=== PATIENT | female | born 1955 | race Caucasian/White ===

== ENCOUNTER 2025-04-22 13:44 | Inpatient (IN) | payer MEDICARE, MEDICAID, SELFPAY ==
--- OUTSIDE RECORDS SUMMARY | 2017-06-03 11:50 | XMS_ITS | Encounter Summary ---
Author Organization [place] [address] Care Team Providers Care Magazine Grinder Loader Name Role Phone Jewel Armas MD Unavailable [phone] Ivan Lucia MD Unavailable [phone] Eliezer Gan MD Unavailable [phone] Júnior Lawrence DO Primary Care Provider [phone] Encounter Details Date Type Department Care Team (Latest Contact Info) Description 06/03/2017 11:50 AM EDT Hospital Encounter [facility] [address] [place] [address] Left without seen Social History Tobacco Use Types Packs/Day Years Used Date Smoking Tobacco: Never Smokeless Tobacco: Never Alcohol Use Standard Drinks/Week Comments No 0 (1 standard drink = 0.6 oz pur e alcohol) B1300 Health Literacy Answer Date Recor ded How often do you need to hav e someone help you when you read instructions, pamphlets, or other written material from your doctor or pharmacy? Sometimes 04/25/2024 [facility] Utilities Answer Date Recorded In the past 12 months has th e electric, gas, oil, or water company threatened to shut off services in your home? Patient unable to answer 02/03/2025 Overall Financial Resource Strain (CARDIA) Answe r Date Recorded How hard is it for you to pa y for the very basics like food, housing, medical care, and heating? Patient unable to answer 02/03/2025 PHQ-2 Answer Date Recorded PHQ-2 Total Score 0 02/03/2025 [facility] - Occupational Stress Questionnaire Answer Date Recorded Do you feel stress - tense, restless, nervous, or anxious, or unable to sleep at night because your mind is troubled all the time - these days? Patient unable to answer 02/03/2025 Exercise Vital Sign Answer Date Recorde d On average, how many days pe r week do you engage in moderate to strenuous exercise (like a brisk walk)? Patient unable to answer 02/03/2025 On average, how many minutes do you engage in exercise at this level? Patient unable to answer 02/03/2025 Hunger Vital Sign Answer Date Recorded Within the past 12 months, y ou worried that your food would run out before you got the money to buy more. Patient unable to answer 02/03/2025 Within the past 12 months, t he food you bought just didn't last and you didn't have money to get more. Patient unable to answer 02/03/2025 PRAPARE - Transportation Answer Date Re corded In the past 12 months, has l ack of transportation kept you from medical appointments or from getting medications? No 01/2025 In the past 12 months, has l ack of transportation kept you from meetings, work, or from getting things needed for daily living? No 12/03/2024 Housing Stability Vital Sign Answer Acrlos e Recorded In the last 12 months, was t here a time when you were not able to pay the mortgage or rent on time? No 08/14/2023 In the last 12 months, how many places have you lived? 1 08/14/2023 In the last 12 months, was t here a time when you did not have a steady place to sleep or slept in a detention (including now)? No 08/14/2023 Housing Stability Vital Sign Answer Carlos e Recorded In the last 12 months, was t here a time when you were not able to pay the mortgage or rent on time? No 04/25/2024 In the past 12 months, how m any times have you moved where you were living? 0 04/25/2024 At any time in the past 12 m [facility], were you homeless or living in a detention (including now)? No 04/25/2024 [facility] IP Transportation Answer D ate Recorded In the past 12 months, has l ack of reliable transportation kept you from medical appointments, meetings, work or from getting things needed for daily living? Patient unable to answer 02/03/2025 Comments No Sex and Gender Information Value Date Recorded Sex Assigned at Not on file Legal Sex Female 10:11 PM EDT Gender Identity Not on file Sexual Orientation Not on file COVID-19 Exposure Response Date Recorded In the last 10 days, have rosa u been in contact with someone who was confirmed or suspected to have Coronavirus/COVID-19? No / Unsure 05/15/2023 12:07 PM EDT documented as of this encounter Functional Status * Cognitive and Functional Status Question Answer Date of Assessment Author Is the person deaf or does h e/she have serious difficulty hearing? No 01/30/2025 9:47 AM EDT Daly Martin MA Is the person blind or does he/she have serious difficulty seeing even when wearing glasses? No 01/30/2025 9:47 AM EDT Daly Mccrary MA Does this person have seriou s difficulty walking or climbing stairs? No 01/30/2025 9:47 AM EDT Daly Mccrary MA Does this person have diffic ulty dressing or bathing? No 01/30/2025 9:47 AM EDT Daly Mccrary M A * Alcohol Screening Score Answer Date of Assessment Author 0 02/01/2025 9:40 PM REEDT Dana Fall RN * Drug Screening Score Answer Date of Assessment Author 0 11/21/2024 2:09 PM EST Nancy Olmedo, REAL ESTATE ASSISTANT * Question Answer Date of Assessment Author How often do you have a drin k containing alcohol? 0 02/01/2025 9:40 PM REEDT Shira Hargrove RN How many drinks containing alcohol do you have on a typical day when you are drinking? 0 02/01/2025 9:40 PM REEDT Shira Hargrove RN How often do you have six or more drinks on one occasion? 0 02/01/2025 9:40 PM EDT Dana Conner RN AUDIT-C to Determine Rows 4-10 0 02/01/2025 9:40 PM EDT Dana Hargrove RN * Question Answer Date of Assessment Author Little interest or pleasure in doing things 0 02/03/2025 12:56 PM EDT Shyla Saini MSW Feeling down, depressed, or hopeless 0 02/03/2025 12:56 PM EDT Shyla Saini REAL ESTATE ASSISTANT PHQ-2 Total Score 0 02/03/2025 12:56 PM EDT Shyla Saini MSW * PHQ-9 Total Score Answer Date of Assessment Author 0 02/03/2025 12:56 PM EDT Shyla Saini MSW * Question Answer Date of Assessment Author Do you ever wish you weren't alive anymore? (Past 1 Month) 0 07/07/2021 2:08 PM EDT Edis Alarcon RN Have you thought about doing something to make youself not alive anymore? (Past 1 Month) 0 07/07/2021 2:08 PM EDT Edis Alarcon RN * Recent Risk Level: Answer Date of Assessment Author No Risk, Screening Complete 07/07/2021 2:08 PM E DT Edis Alarcon RN * Question Answer Date of Assessment Author Feeling Nervous, Anxious, or on Edge 0 0412/2024 9:48 AM EDT Daly Mccrary MA Not Being Able to Stop or Co ntrol Worrying 0 01/30/2025 9:48 AM EDT Daly Mccrary MA Worrying too Much About Diff erent Things 0 01/30/2025 9:48 AM EDT Daly Mccrary MA Trouble Relaxing 0 01/30/2025 9:48 AM EDT Daly Hicks MA Being so Restless That it is Hard to Sit Still 0 01/30/2025 9:48 AM EDT Daly Mccrary MA Becoming Easily Annoyed or Irritable 0 0412/2024 9:48 AM EDT Daly Mccrary MA Feeling Afraid as if Somethi ng Awful Might Happen 0 01/30/2025 9:48 AM EDT Daly Mccrary MA JACK-7 Total Score 0 01/30/2025 9:48 AM EDT Daly Mccrary MA * Suicide Severity Rating Answer Date of Assessment Author No Risk 02/01/2025 3:27 PM EDT Momo Mendoza RN * [place] Suicide Severity Rating Scale (Q shift for moderate and high) Question Answer Date of Assessment Author 1. In the past month, have y ou wished you were or wished you could go to sleep and not wake up? 0 02/01/2025 3:27 PM EDT Momo Philippe RN 2. In the past month, have y ou actually had any thoughts of killing yourself? (If no, skip to question 6) 0 02/01/2025 3:27 PM EDT Momo Mendoza RN 6. Have you ever done anythi ng, started to do anything, or prepared to do anything to end your life? 0 02/01/2025 3:27 PM EDT Momo Fernandes RN documented as of this encounter Mental Status * Cognitive and Functional Status Question Answer Entry Date Author Because of a physical, menta l or emotional condition, does this person have difficulty doing errands alone such as visiting a doctor's office or shopping? Yes 01/30/2025 9:47 AM EDT Daly Mccrary MA Because of a physical, menta l or emotional condition, does this person have serious difficulty concentrating, remembering or making decisions? No 01/30/2025 9:47 AM EDT Daly Mccrary MA documented in this encounter Plan of Treatment Not on file documented as of this encounter Goals Goal Patient Goal Type Associated Problems Recent Progress Patient-Stated? Author Blood Pressure < 140/90 Blood Pressure 116/57(2024 4:05 PM EDT) No Blanca Oden, RMA BMI (Calculated) < 30 General 21.5(02/02/20 9:33 PM EDT) No Blanca Oden RMA Maintain a healthy diet, exercise regularly and maintain an ideal body weight General No Blanca Oden RMA HEMOGLOBIN A1C < 7.0 Result Component 10.9(02/03/20 11:23 AM EDT) No Oden, Blanca Kelley, RMA documented as of this encounter Visit Diagnoses Not on filedocumented in this encounter Additional Health Concerns Infection Onset Date Last Indicated Resolved Time R/O COVID-19 05/31/2022 05/31/2022 05/31/2022 7:08 PM EDT R/O COVID-19 10/16/2022 10/16/2022 10/16/2022 6:33 PM EST COVID-19 10/16/2022 10/16/2022 11/22/2022 2:34 PM EST R/O COVID-19 11/22/2023 11/22/2023 11/22/2023 2:35 PM EST R/O COVID-19 03/11/2024 03/11/2024 03/11/2024 1:07 PM EDT R/O COVID-19 11/27/2024 11/27/2024 11/28/2024 2:00 AM EST INFLUENZA 11/28/2024 11/28/2024 12/12/2024 10:1 2 PM EST documented as of this encounter Care Teams Magazine Grinder Loader Relationship Specialty Start Date End Date Júnior Lawrence DO [address] [place] [address] PCP - General Family Medicine 12/10/15 06/02/20 Jewel Armas MD Internal Medicine-Gastroenterology 01/06/14 Ivan Lucia MD [address] [address] Internal Medicine-Endocrinology, Diabetes & Metabolism 07/15/14 Eliezer Gan MD [address] [place] [address] [address] [place] [address] Physician Obstetrics & Gynecology 11/21/14 documented as of this encounter
--- OUTSIDE RECORDS SUMMARY | 2019-01-09 13:00 | XMS_ITS | Encounter Summary ---
Author Organization [place] [address] Care Team Providers Care Patient Scheduling Coordinator Name Role Phone Jewel Armas MD Unavailable [phone] Ivan Lucia MD Unavailable [phone] Eliezer Gan MD Unavailable [phone] Júnior Lawrence DO Primary Care Provider [phone] Thea Calderon RN Unavailable Unavail able Reason for Visit * Holter Monitor (Routine) - Closed Specialty Diagnoses / Procedures Referred By Contac t Referred To Contact Radiology Diagnoses Dyslipidemia associated with type 2 diabetes mellitus (HCC) Encounter for long-term opiate analgesic use SOB (shortness of breath) Chest discomfort Racing heart beat Procedures HOLTER MONITOR RECORDING AND ANALYSIS Luisito Emmanuel MD [address] [id number] Phone: tel: fax: [facility] [address] [place] [address] Phone: tel: Referral ID Status Reason Start Date Expiration Date Visits Re quested Visits Authorized [id number] Closed 12/28/2018 12/28/2019 1 1 Encounter Details Date Type Department Care Team (Latest Contact Info) Description 01/09/2019 1:00 PM EDT Hospital Encounter [facility] [address] [place] [address] Luisito Emmanuel MD [address] [facility] [address] Left without seen Social History Tobacco Use [...] from your doctor or pharmacy? Sometimes 04/25/2024 [facility] Utilities Answer Date Recorded In the past 12 months has e electric, gas, oil, or water [employer] threatened to shut off services in your home? Patient unable to answer 02/03/2025 Overall Financial Resource Strain (CARDIA) Answe r Date Recorded How hard is it for you to pa y for the very basics like food, housing, medical care, and heating? Patient unable to answer 02/03/2025 PHQ-2 Answer Date Recorded PHQ-2 Total Score 0 02/03/2025 [facility] - Occupational Stress [...] No 12/03/2024 Housing Stability Vital Sign Answer Carlos e [...] place to sleep or slept in a chcf (including now)? No 08/14/2023 Housing Stability Vital Sign Answer Carlos e Recorded In the last 12 months, was t here a time when you were not able to pay the mortgage or rent on time? No 04/25/2024 In the past 12 months, how m any times have you moved where you were living? 0 04/25/2024 At any time in the past 12 m [facility], were you homeless or living in a chcf (including now)? No 04/25/2024 [facility] IP Transportation Answer D ate Recorded In [...] Recorded In the last 10 days, have yo u been in contact with someone who [...] of Assessment Author 0 02/01/2025 9:40 PM Dana Mazariegos RN * Drug Screening Score Answer Date of Assessment Author 0 11/21/2024 2:09 PM Nancy Mays MSW * Question Answer Date of Assessment Author How often do you have a drin k containing alcohol? 0 02/01/2025 9:40 PM REEDT Shira Hargrove RN How many drinks containing alcohol do you have on a typical day when you are drinking? 0 02/01/2025 9:40 PM Shira Magaña RN How often do you have six or more drinks on one occasion? 0 02/01/2025 9:40 PM Dana Coon RN AUDIT-C to Determine Rows 4-10 0 02/01/2025 9:40 PM Dana Magaña RN * Is the person deaf or does he/she have serious difficulty hearing? Answer Date of Assessment Author No 12/14/2018 10:47 AM Carin Castillo RMA * Is the person blind or does he/she have serious difficulty seeing even when wearing glasses? Answer Date of Assessment Author No 12/14/2018 10:47 AM Carin Castillo RMA * Does this person have serious difficulty walking or climbing stairs? Answer Date of Assessment Author No 12/14/2018 10:47 AM Carin Castillo RMA * Does this person have difficulty dressing or bathing? Answer Date of Assessment Author No 12/14/2018 10:47 AM Carin Castillo RMA * Because of a physical, mental or emotional condition, does this person have difficulty doing errands alone such as visiting a doctor's office or shopping? Answer Date of Assessment Author No 12/14/2018 10:47 AM Carin Castillo RMA * Question Answer Date of Assessment Author Little interest or pleasure in doing things 0 02/03/2025 12:56 PM EDT Shyla Saini SUPERVISOR HARVESTING Feeling down, depressed, or hopeless 0 02/03/2025 12:56 PM EDT Shyla Saini SUPERVISOR HARVESTING PHQ-2 Total Score 0 02/03/2025 12:56 PM [...] Feeling Nervous, Anxious, or on Edge 0 04/0 12/2024 9:48 AM EDT Daly Mccrary MA Not [...] MA Becoming Easily Annoyed or Irritable 0 04/0 12/2024 9:48 AM EDT Daly Mccrary MA Feeling Afraid as if Somethi ng Awful Might Happen 0 01/30/2025 9:48 AM EDT Daly Mccrary MA JACK-7 Total Score 0 01/30/2025 9:48 AM EDT Daly Mccrary MA * Suicide Severity Rating Answer Date of Assessment Author No Risk 02/01/2025 3:27 PM EDT Momo Mendoza RN * [place] Suicide Severity Rating Scale (Q shift for moderate and high) Question Answer Date of Assessment Author 1. In the past month, have y ou wished you were or wished you could go to sleep and not wake up? 0 02/01/2025 3:27 PM EDT Momo Philippe, LYNN 2. In the past month, have y [...] 01/30/2025 9:47 AM EDT Daly Mccrary MA * Because of a physical, mental or emotional condition, does this person have serious difficulty concentrating, remembering or making decisions? Answer Entry Date Author No 12/14/2018 10:47 AM EST Carin Perla RMA documented in this encounter Plan of Treatment Not on file documented as of this encounter Goals Goal Patient Goal Type Associated Problems Recent Progress Patient-Stated? Author Blood Pressure < 140/90 Blood Pressure 116/57(2024 4:05 PM EDT) No Blanca Oden RMA BMI (Calculated) < 30 General 21.5(02/02/20 [...] documented as of this encounter Care Teams Patient Scheduling Coordinator Relationship Specialty Start Date End Date Júnior Lawrence DO [address] [place] [address] PCP - General Family Medicine 12/10/15 06/02/20 Jewel Armas MD Internal Medicine-Gastroenterolog y 01/06/14 Ivan Lucia MD [address] [address] Internal Medicine-Endocrinology, Diabetes & Metabolism 07/15/14 Eliezer Gan MD [address] [facility] [address] [place] [address] Physician Obstetrics & Gynecology 11/21/14 Thea Calderon, RN Oven Technician Registered Nurse 07/20/18 05/26/19 documented as of this encounter
[2025-04-22] VITALS (9 sets, daily range): BP systolic 136–171; BP diastolic 42–97; PULSE 87–106; RESP 17–20; TEMP 36.4–37.9; O2SAT 97–98; BMI 25.4; BMI 22.1
--- NOTE | 2025-04-22 13:44 | HMH.EDGENADL ---
Discharge Plan Disposition Patient Disposition: Admitted Condition: Fair Clinical Impressions Clinical Impression: Toxic metabolic encephalopathy, Sepsis without septic shock, Urinary tract infection in female Discharge ED Provider: Sai Rawls General Adult HPI <OMA Moon - Last Filed: 04/22/25 18:15> General Chief complaint: Altered Mental Status Stated complaint: AMS Time Seen by Provider: 04/22/25 13:51 History of Present Illness HPI narrative: Patient presents via EMS for reported altered mental status. Patient through review of her PCP visit has a known history of previous stroke and dementia. Data is limited as she has never been to our facility before. We were able to determine the patient had been in the [facility] up until the first part of March of this year. Reportedly EMS was called for altered mental status however no family members are present and we are unable to reach them at any contact information provided. Patient herself can only answer to her name and date of she is oriented only to self. We do not know what her functional baseline is. However again review of her visit with Michael Aquino seems to corroborate her current level of mental functioning although I cannot be sure. Related Data Home Medications ?Medication ?Instructions ?Recorded ?Confirmed memantine 5 mg tablet 5 mg PO BID 04/23/25 04/23/25 Previous Rx's ?Medication ?Instructions ?Recorded apixaban 5 mg tablet (Eliquis) 5 mg PO BID #30 tabs 04/04/25 atorvastatin 40 mg tablet (Lipitor) 40 mg PO DAILY #30 tabs 04/04/25 losartan 25 mg tablet 25 mg PO DAILY #30 tabs 04/04/25 metoprolol succinate 25 mg 25 mg PO DAILY #30 tabs 04/04/25 tablet,extended release 24 hr omeprazole 20 mg capsule,delayed 20 mg PO BID #60 caps 04/04/25 release sitagliptin phosphate 25 mg tablet 25 mg PO DAILY #30 tabs 04/04/25 (Januvia) spironolactone 25 mg tablet 25 mg PO DAILY #30 tabs 04/04/25 Allergies Allergy/AdvReac Type Severity Reaction Status Date / Time codeine Allergy Mild Unknown Verified 04/22/25 17:05 allergy reaction zolpidem Allergy Itchy Verified 04/22/25 17:05 PFSH <OMA Moon - Last Filed: 04/22/25 18:15> PFSH Disclaimer: The information contained in this section may have been updated after the patient was seen, as this information can be updated by other users. Medical History Diabetes Surgical History History of uterine myomectomy or hysterotomy Social History (Updated 04/04/25 @ 11:56 by Amanda Olguin MA) Smoking Status: Never smoker alcohol intake: never current occupational status: disabled Travel in the last 8 weeks?: None Have you lived/traveled outside [place] in past 30 days?: No Contact w/someone who lives/traveled outside US past 30 days?: No Exposure to someone with infectious disease in past 14 days?: No Do you have a fever (greater than 100.4 F or 38 C)?: No Have you tested positive for COVID-19?: No Exposed to someone with COVID-19 in past 14 days?: No Do you have a sore throat?: No Do you have a cough?: No Do you have any weakness?: No Do you have any diarrhea?: No Are you experiencing any unusual bleeding?: No Do you have any muscle aches/pain?: No Do you have any abdominal pain?: No Are you experiencing loss of taste or smell?: No Other Medical History Have you received the Pneumonia Vaccine: Yes <OMA Moon - Last Filed: 04/22/25 18:15> ROS Obtained: Yes unobtainable due to mental status and Yes unobtainable due to mental condition Physical Exam <OMA Moon - Last Filed: 04/22/25 18:15> General General appearance: alert and in no apparent distress Neck Neck exam: Present lymphadenopathy Respiratory Respiratory exam: Present normal lung sounds bilaterally Cardiovascular Cardiovascular exam: Present regular rate Neurological Exam Neurological exam: Present alert and oriented X3 Medical Decision Making <OMA Moon - Last Filed: 04/22/25 18:15> Medical Records Medical records reviewed: Yes I reviewed the patient's medical records. Screening: Per USPSTF and CDC recommendations, given the prevalence of disease in our region, it is our hospital?s policy to screen for HIV and viral Hepatitis for all patients aged 18 and over and those with ongoing risk factors. Darrick Inquiry Pt receiving controlled substance: No Vital Signs: 04/22/25 13:49 04/22/25 14:00 04/22/25 16:00 Temperature 98.1 F Temperature Source Oral Pulse Rate 98 H 89 Pulse Rate [Right Brachial] 105 H Respiratory Rate 20 Blood Pressure 155/88 H 150/88 H Blood Pressure [Right Arm] 171/90 H Blood Pressure Mean 110 Blood Pressure Mean [Right Arm] 117 Blood Pressure Source Blood Pressure Source [Right Arm] Automatic Cuff Blood Pressure Position Blood Pressure Position [Right Arm] Supine 02 Sat by Pulse Oximetry 97 97 98 Oxygen Delivery Method Room Air 04/22/25 17:04 04/22/25 17:54 04/22/25 17:56 Temperature 99.0 F Temperature Source Rectal Pulse Rate 94 H Pulse Rate [Right Brachial] Respiratory Rate Blood Pressure 136/97 H Blood Pressure [Right Arm] Blood Pressure Mean 107 Blood Pressure Mean [Right Arm] Blood Pressure Source Blood Pressure Source [Right Arm] Blood Pressure Position Blood Pressure Position [Right Arm] 02 Sat by Pulse Oximetry 98 Oxygen Delivery Method Room Air 04/22/25 18:02 Temperature 99.0 F Temperature Source Rectal Pulse Rate 89 Pulse Rate [Right Brachial] Respiratory Rate 18 Blood Pressure 148/42 H Blood Pressure [Right Arm] Blood Pressure Mean Blood Pressure Mean [Right Arm] Blood Pressure Source Automatic Cuff Blood Pressure Source [Right Arm] Blood Pressure Position Supine Blood Pressure Position [Right Arm] 02 Sat by Pulse Oximetry Oxygen Delivery Method Room Air Lab Data Lab results reviewed: Yes I reviewed the patient's lab results. Lab Results 04/22/25 14:31: WBC 13.1 H, RBC 5.89 H, Hgb 15.4, Hct 46.6, MCV 79.1 L, MCH 26.1 L, MCHC 33.0, RDW 14.2, Plt Count 219, MPV 11.8 H, Neut % (Auto) 72.4, Lymph % (Auto) 19.5, [place] % (Auto) 5.9, Eos % (Auto) 0.4, Baso % (Auto) 1.0, Neut # (Auto) 9.5 H, Lymph # (Auto) 2.6, [place] # (Auto) 0.8, Eos # (Auto) 0.1, Baso # (Auto) 0.1, Sodium 137, Potassium 4.2, Chloride 104, Carbon Dioxide 28, Anion Gap 9.2, BUN 13, Creatinine 0.80, Estimated Creat Clear 49, Estimated GFR 71, Est GFR ( Amer) 86, Glucose 359 H, Calcium 9.7, Magnesium 1.9, Total Bilirubin 2.5 H, AST 38 H, ALT 32, Alkaline Phosphatase 200 H, Troponin I < 0.01, Total Protein 7.9, Albumin 4.4, Globulin 3.5 H, Albumin/Globulin Ratio 1.3, Procalcitonin 0.054, HCV Ab AD w/Rflx PCR Qn Negative, HIV Ag/Ab Combo Qual Negative 04/22/25 15:53: Urine Color Yellow, Urine Appearance Clear, Urine pH 8.0, Ur Specific [place] 1.010, Urine Protein Trace, Urine Glucose (UA) 3+, Urine Ketones 2+, Urine Blood Trace-l, Urine Nitrate Negative, Urine Bilirubin Negative, Urine Urobilinogen 0.2, Ur Leukocyte Esterase Trace, Urine RBC Occasional, Urine WBC 50-100, Ur Squamous Epith Cells Occasional, Urine Bacteria 4+ 04/22/25 17:23: Troponin I < 0.01 04/23/25 05:33 04/23/25 05:33 Orders (Tests/Meds): ED MEDICATIONS Generic Name Dose Route Start Last Admin Trade Name Freq PRN Reason Stop Dose Admin Acetaminophen 650 mg 04/22/25 18:16 Acetaminophen 325mg Tab PO 05/22/25 18:15 Q4HP PRN Fever or Mild Pain (1-3) Apixaban 5 mg 04/23/25 09:00 Apixaban 5mg Tablet PO 05/23/25 08:59 BID GLORIA Aspirin 81 mg 04/23/25 09:00 Aspirin Ec 81mg Tablet PO 05/23/25 08:59 DAILY GLORIA Atorvastatin Calcium 40 mg 04/23/25 21:00 Atorvastatin 40mg Tablet PO 05/23/25 20:59 HS GLORIA Ceftriaxone Sodium 1 gm/ 50 mls @ 100 mls/hr 04/23/25 13:00 Sodium Chloride IV 05/03/25 12:59 Q24H COUNT INCLUDES THE [facility] Insulin Human Lispro 0 unit 04/22/25 21:20 04/23/25 05:33 Humalog 100 Units/Ml 10ml Vial (Ssi) SUBCUT 05/22/25 21:19 8 unit ACHS COUNT INCLUDES THE [facility] Administration Protocol Memantine 5 mg 04/23/25 09:00 Memantine 10mg Tablet PO 05/23/25 08:59 BID COUNT INCLUDES THE [facility] Metoprolol Succinate 25 mg 04/23/25 09:00 Metoprolol Succinate Xl 25mg Tablet PO 05/23/25 08:59 DAILY COUNT INCLUDES THE [facility] Ondansetron HCl 4 mg 04/22/25 18:16 Ondansetron 4mg/2ml Vial IV 05/22/25 18:15 Q8HP PRN Nausea Pantoprazole Sodium 40 mg 04/23/25 09:00 Pantoprazole 40mg Tablet PO 05/23/25 08:59 BID GLORIA Sodium Chloride 10 ml 04/23/25 07:19 Sodium Chloride 0.9% 10ml Flush Syringe IV 05/23/25 07:18 NEEDED PRN Maintain IV Site Discontinued Medications Generic Name Dose Route Start Last Admin Trade Name Freq PRN Reason Stop Dose Admin Ceftriaxone Sodium 1 gm/ 50 mls @ 100 mls/hr 04/22/25 16:45 04/22/25 17:07 Sodium Chloride IV 04/22/25 17:14 100 mls/hr ONCE ONE Administration Sodium Chloride 1,000 mls @ 999 mls/hr 04/22/25 16:45 04/22/25 17:07 Sod Chlor 0.9% 1000ml Bag IV 04/22/25 17:45 999 mls/hr .Q1H1M ONE Administration Sodium Chloride 1,370 mls @ 685 mls/hr 04/22/25 17:39 04/22/25 17:51 Sod Chlor 0.9% 1000ml Bag 30 ml/kg infuse over 2 hr (1370 ml) 04/22/25 19:38 685 mls/hr IV Administration .Q2H ONE Iopamidol 80 ml 04/22/25 15:24 04/22/25 15:26 Iopamidol-370 (76%);100ml Bottle IV 04/22/25 15:25 80 ml ONCE ONE Administration Sodium Chloride 50 ml 04/22/25 15:24 04/22/25 15:26 0.9 % Sodium Chloride 50 Ml Vial IV 04/22/25 15:25 50 ml ONCE ONE Administration Sodium Chloride 10 ml 04/22/25 15:24 04/22/25 15:26 Sodium Chloride 0.9% 10ml Syr (Rad Only) IV 04/22/25 15:25 10 ml ONCE ONE Administration ORDERS Category Date Time Status CT angio head Stat Cat Scan 04/22/25 13:[address] angio neck Stat Cat Scan 04/22/25 13:[address] head/brain wo con Stat Cat Scan 04/22/25 13:55 Completed CBC w/Auto Diff [Complete Blood Count Auto Diff] Stat Lab 04/22/25 14:31 Completed CMP [Comprehensive Metabolic Panel] Stat Lab 04/22/25 14:31 Completed HIV Combo Stat Lab 04/22/25 14:31 Completed Hepatitis C Ab Qual. W/ RFX Stat Lab 04/22/25 14:31 Completed Magnesium Stat Lab 04/22/25 14:31 Completed Procalcitonin Stat Lab 04/22/25 14:31 Completed Trop I [Troponin I] Stat Lab 04/22/25 14:31 Completed Troponin I Q3H Lab 04/22/25 17:23 Completed Troponin I Q3H Lab 04/22/25 20:05 Completed UA [Urinalysis and Microscopic] Stat Lab 04/22/25 15:53 Completed Blood Culture Stat Micro 04/22/25 16:48 Received Urine Culture Stat Micro 04/22/25 15:53 Results Tissue Perfus/Sepsis Re-Eval Sepsis Re-Evaluation Performed: Yes Date Performed: 04/22/25 Time Performed: 18:15 HEART Score History (anamnesis): Slightly suspicious ECG: Non-specific disturbance Age: >65 years Risk factors: Atherosclerosis history Troponin: </= normal limit HEART Score: 5 Medical Decision Narrative: In summary patient is a 70-year-old female with who presents to the emergency department for evaluation of reported altered mental status. Patient is not a reliable historian and we have attempted to obtain contact with her family members with no success at this point.. Patient is currently with a blood pressure 171/90 heart rate is slightly tachycardic at 105 breathing 20 times a minute satting at 90% on room air upon arrival, afebrile at 98.1. Physical exam reveals a well-nourished well-developed 70-year-old female who is awake in no apparent acute distress. Patient can answer clearly her name and date of that she can give no other answers she can say yes and no but not appropriately so. She has no focal neurologic deficits pupils equal round reactive to light. Patient moves all 4 extremities spontaneously. She is not following commands. Breath sounds clear and equal bilaterally to the bases without adventitious sounds abdomen soft nontender no rebound or guarding no rigidity.. Differential diagnosis includes sepsis versus stroke versus ACS versus PE versus electrolyte abnormality etc. Initial workup will be conducted with hematologic labs CT scan of the head without contrast CTA of the head and neck urinalysis. Initial interventions include a crystalloid bolus for now. Initial workup reviewed by me and patient has a white count of 13.1 hemoglobin hematocrit 15.4 and 46.6 respectively absolute neutrophil count 9.5 glucose is 359 anion gap 9.2 AST is 38 alk phos 200 troponin is less than 0.01 procalcitonin is 0.054 urinalysis shows 2+ of glucose 2+ of ketones trace blood nitrite negative trace leukocyte Estrace and microscopic exam shows occasional red blood cells 50-100 white cells occasional squamous epithelial cells and 4+ bacteria consistent with urinary tract infection. My informal interpretation of her cerebral imaging shows no acute processes but does show extensive previous strokes. I have ordered blood cultures and start the patient on Rocephin. I changed her initial crystalloid bolus to the sepsis bolus. I now have collateral information from one of her sons with whom the patient now resides who has arrived to the emergency department. Patient was a living with her other son for a long period of time but had her placed in [facility] earlier this year as he could no longer care for her. Patient was a resident there until early in March and the son with whom I am speaking said that he took her out at her request. She was walking talking and appeared to be able to care for herself so he agreed. He has little insight into her past medical history and the numerous medications that she is on. She has had a history of previous strokes and coronary artery disease. She also has a history of Eliquis atorvastatin losartan metoprolol and omeprazole as well as spironolactone. Patient states has late as yesterday she walked out and gave him ice water while he was mowing grass and today she is unable to walk at all. He states that he can no longer care for her at this point. Accordingly I had an interactive discussion with hospital medicine regarding patient presentation [place] and management and she will be admitted for further evaluation and care. <Jas Irving MD - Last Filed: 04/22/25 19:01> Vital Signs: 04/22/25 13:49 04/22/25 14:00 04/22/25 16:00 Temperature 98.1 F Temperature Source Oral Pulse Rate 98 H 89 Pulse Rate [Right Brachial] 105 H Respiratory Rate 20 Blood Pressure 155/88 H 150/88 H Blood Pressure [Right Arm] 171/90 H Blood Pressure Mean 110 Blood Pressure Mean [Right Arm] 117 Blood Pressure Source Blood Pressure Source [Right Arm] Automatic Cuff Blood Pressure Position Blood Pressure Position [Right Arm] Supine 02 Sat by Pulse Oximetry 97 97 98 Oxygen Delivery Method Room Air 04/22/25 17:04 04/22/25 17:54 04/22/25 17:56 Temperature 99.0 F Temperature Source Rectal Pulse Rate 94 H Pulse Rate [Right Brachial] Respiratory Rate Blood Pressure 136/97 H Blood Pressure [Right Arm] Blood Pressure Mean 107 Blood Pressure Mean [Right Arm] Blood Pressure Source Blood Pressure Source [Right Arm] Blood Pressure Position Blood Pressure Position [Right Arm] 02 Sat by Pulse Oximetry 98 Oxygen Delivery Method Room Air 04/22/25 18:02 Temperature 99.0 F Temperature Source Rectal Pulse Rate 89 Pulse Rate [Right Brachial] Respiratory Rate 18 Blood Pressure 148/42 H Blood Pressure [Right Arm] Blood Pressure Mean Blood Pressure Mean [Right Arm] Blood Pressure Source Automatic Cuff Blood Pressure Source [Right Arm] Blood Pressure Position Supine Blood Pressure Position [Right Arm] 02 Sat by Pulse Oximetry Oxygen Delivery Method Room Air Lab Data Lab Results 04/22/25 14:31: WBC 13.1 H, RBC 5.89 H, Hgb 15.4, Hct 46.6, MCV 79.1 L, MCH 26.1 L, MCHC 33.0, RDW 14.2, Plt Count 219, MPV 11.8 H, Neut % (Auto) 72.4, Lymph % (Auto) 19.5, [place] % (Auto) 5.9, Eos % (Auto) 0.4, Baso % (Auto) 1.0, Neut # (Auto) 9.5 H, Lymph # (Auto) 2.6, [place] # (Auto) 0.8, Eos # (Auto) 0.1, Baso # (Auto) 0.1, Sodium 137, Potassium 4.2, Chloride 104, Carbon Dioxide 28, Anion Gap 9.2, BUN 13, Creatinine 0.80, Estimated Creat Clear 49, Estimated GFR 71, Est GFR ( Amer) 86, Glucose 359 H, Calcium 9.7, Magnesium 1.9, Total Bilirubin 2.5 H, AST 38 H, ALT 32, Alkaline Phosphatase 200 H, Troponin I < 0.01, Total Protein 7.9, Albumin 4.4, Globulin 3.5 H, Albumin/Globulin Ratio 1.3, Procalcitonin 0.054, HCV Ab AD w/Rflx PCR Qn Negative, HIV Ag/Ab Combo Qual Negative 04/22/25 15:53: Urine Color Yellow, Urine Appearance Clear, Urine pH 8.0, Ur Specific [place] 1.010, Urine Protein Trace, Urine Glucose (UA) 3+, Urine Ketones 2+, Urine Blood Trace-l, Urine Nitrate Negative, Urine Bilirubin Negative, Urine Urobilinogen 0.2, Ur Leukocyte Esterase Trace, Urine RBC Occasional, Urine WBC 50-100, Ur Squamous Epith Cells Occasional, Urine Bacteria 4+ 04/22/25 17:23: Troponin I < 0.01 Orders (Tests/Meds): ED MEDICATIONS Generic Name Dose Route Start Last Admin Trade Name Freq PRN Reason Stop Dose Admin Acetaminophen 650 mg 04/22/25 18:16 Acetaminophen 325mg Tab PO 05/22/25 18:15 Q4HP PRN Fever or Mild Pain (1-3) Apixaban 5 mg 04/23/25 09:00 Apixaban 5mg Tablet PO 05/23/25 08:59 BID COUNT INCLUDES THE [facility] Aspirin 81 mg 04/23/25 09:00 Aspirin Ec 81mg Tablet PO 05/23/25 08:59 DAILY COUNT INCLUDES THE [facility] Atorvastatin Calcium 40 mg 04/23/25 21:00 Atorvastatin 40mg Tablet PO 05/23/25 20:59 HS COUNT INCLUDES THE [facility] Ceftriaxone Sodium 1 gm/ 50 mls @ 100 mls/hr 04/23/25 13:00 Sodium Chloride IV 05/03/25 12:59 Q24H COUNT INCLUDES THE [facility] Insulin Human Lispro 0 unit 04/22/25 21:20 04/23/25 05:33 Humalog 100 Units/Ml 10ml Vial (Ssi) SUBCUT 05/22/25 21:19 8 unit ACHS COUNT INCLUDES THE [facility] Administration Protocol Memantine 5 mg 04/23/25 09:00 Memantine 10mg Tablet PO 05/23/25 08:59 BID COUNT INCLUDES THE [facility] Metoprolol Succinate 25 mg 04/23/25 09:00 Metoprolol Succinate Xl 25mg Tablet PO 05/23/25 08:59 DAILY GLORIA Ondansetron HCl 4 mg 04/22/25 18:16 Ondansetron 4mg/2ml Vial IV 05/22/25 18:15 Q8HP PRN Nausea Pantoprazole Sodium 40 mg 04/23/25 09:00 Pantoprazole 40mg Tablet PO 05/23/25 08:59 BID GLORIA Sodium Chloride 10 ml 04/23/25 07:19 Sodium Chloride 0.9% 10ml Flush Syringe IV 05/23/25 07:18 NEEDED PRN Maintain IV Site Discontinued Medications Generic Name Dose Route Start Last Admin Trade Name Freq PRN Reason Stop Dose Admin Ceftriaxone Sodium 1 gm/ 50 mls @ 100 mls/hr 04/22/25 16:45 04/22/25 17:07 Sodium Chloride IV 04/22/25 17:14 100 mls/hr ONCE ONE Administration Sodium Chloride 1,000 mls @ 999 mls/hr 04/22/25 16:45 04/22/25 17:07 Sod Chlor 0.9% 1000ml Bag IV 04/22/25 17:45 999 mls/hr .Q1H1M ONE Administration Sodium Chloride 1,370 mls @ 685 mls/hr 04/22/25 17:39 04/22/25 17:51 Sod Chlor 0.9% 1000ml Bag 30 ml/kg infuse over 2 hr (1370 ml) 04/22/25 19:38 685 mls/hr IV Administration .Q2H ONE Iopamidol 80 ml 04/22/25 15:24 04/22/25 15:26 Iopamidol-370 (76%);100ml Bottle IV 04/22/25 15:25 80 ml ONCE ONE Administration Sodium Chloride 50 ml 04/22/25 15:24 04/22/25 15:26 0.9 % Sodium Chloride 50 Ml Vial IV 04/22/25 15:25 50 ml ONCE ONE Administration Sodium Chloride 10 ml 04/22/25 15:24 04/22/25 15:26 Sodium Chloride 0.9% 10ml Syr (Rad Only) IV 04/22/25 15:25 10 ml ONCE ONE Administration ORDERS Category Date Time Status CT angio head Stat Cat Scan 04/22/25 13:[address] angio neck Stat Cat Scan 04/22/25 13:[address] head/brain wo con Stat Cat Scan 04/22/25 13:55 Completed CBC w/Auto Diff [Complete Blood Count Auto Diff] Stat Lab 04/22/25 14:31 Completed CMP [Comprehensive Metabolic Panel] Stat Lab 04/22/25 14:31 Completed HIV Combo Stat Lab 04/22/25 14:31 Completed Hepatitis C Ab Qual. W/ RFX Stat Lab 04/22/25 14:31 Completed Magnesium Stat Lab 04/22/25 14:31 Completed Procalcitonin Stat Lab 04/22/25 14:31 Completed Trop I [Troponin I] Stat Lab 04/22/25 14:31 Completed Troponin I Q3H Lab 04/22/25 17:23 Completed Troponin I Q3H Lab 04/22/25 20:05 Completed UA [Urinalysis and Microscopic] Stat Lab 04/22/25 15:53 Completed Blood Culture Stat Micro 04/22/25 16:48 Received Urine Culture Stat Micro 04/22/25 15:53 Results HEART Score HEART Score: 5 Medical Decision Narrative: In summary patient is a 70-year-old female with who presents to the emergency department for evaluation of reported altered mental status. Patient is not a reliable historian and we have attempted to obtain contact with her family members with no success at this point.. Patient is currently with a blood pressure 171/90 heart rate is slightly tachycardic at 105 breathing 20 times a minute satting at 90% on room air upon arrival, afebrile at 98.1. Physical exam reveals a well-nourished well-developed 70-year-old female who is awake in no apparent acute distress. Patient can answer clearly her name and date of that she can give no other answers she can say yes and no but not appropriately so. She has no focal neurologic deficits pupils equal round reactive to light. Patient moves all 4 extremities spontaneously. She is not following commands. Breath sounds clear and equal bilaterally to the bases without adventitious sounds abdomen soft nontender no rebound or guarding no rigidity.. Differential diagnosis includes sepsis versus stroke versus ACS versus PE versus electrolyte abnormality etc. Initial workup will be conducted with hematologic labs CT scan of the head without contrast CTA of the head and neck urinalysis. Initial interventions include a crystalloid bolus for now. Initial workup reviewed by me and patient has a white count of 13.1 hemoglobin hematocrit 15.4 and 46.6 respectively absolute neutrophil count 9.5 glucose is 359 anion gap 9.2 AST is 38 alk phos 200 troponin is less than 0.01 procalcitonin is 0.054 urinalysis shows 2+ of glucose 2+ of ketones trace blood nitrite negative trace leukocyte Estrace and microscopic exam shows occasional red blood cells 50-100 white cells occasional squamous epithelial cells and 4+ bacteria consistent with urinary tract infection. My informal interpretation of her cerebral imaging shows no acute processes but does show extensive previous strokes. I have ordered blood cultures and start the patient on Rocephin. I changed her initial crystalloid bolus to the sepsis bolus. I now have collateral information from one of her sons with whom the patient now resides who has arrived to the emergency department. Patient was a living with her other son for a long period of time but had her placed in [facility] earlier this year as he could no longer care for her. Patient was a resident there until early in March and the son with whom I am speaking said that he took her out at her request. She was walking talking and appeared to be able to care for herself so he agreed. He has little insight into her past medical history and the numerous medications that she is on. She has had a history of previous strokes and coronary artery disease. She also has a history of Eliquis atorvastatin losartan metoprolol and omeprazole as well as spironolactone. Patient states has late as yesterday she walked out and gave him ice water while he was mowing grass and today she is unable to walk at all. He states that he can no longer care for her at this point. Accordingly I had an interactive discussion with hospital medicine regarding patient presentation [place] and management and she will be admitted for further evaluation and care. I was consulted by the HARISH, and we discussed the complexity of the problems being addressed. I approved the treatment and management plan for this patient's care in the emergency department, thus performing a substantive portion of the medical decision making. Jas Irving MD <Sai Rawls MD - Last Filed: 04/23/25 10:35> Vital Signs: 04/22/25 13:49 04/22/25 14:00 04/22/25 16:00 Temperature 98.1 F Temperature Source Oral Pulse Rate 98 H 89 Pulse Rate [Right Brachial] 105 H Respiratory Rate 20 Blood Pressure 155/88 H 150/88 H Blood Pressure [Right Arm] 171/90 H Blood Pressure Mean 110 Blood Pressure Mean [Right Arm] 117 Blood Pressure Source Blood Pressure Source [Right Arm] Automatic Cuff Blood Pressure Position Blood Pressure Position [Right Arm] Supine 02 Sat by Pulse Oximetry 97 97 98 Oxygen Delivery Method Room Air 04/22/25 17:04 04/22/25 17:54 04/22/25 17:56 Temperature 99.0 F Temperature Source Rectal Pulse Rate 94 H Pulse Rate [Right Brachial] Respiratory Rate Blood Pressure 136/97 H Blood Pressure [Right Arm] Blood Pressure Mean 107 Blood Pressure Mean [Right Arm] Blood Pressure Source Blood Pressure Source [Right Arm] Blood Pressure Position Blood Pressure Position [Right Arm] 02 Sat by Pulse Oximetry 98 Oxygen Delivery Method Room Air 04/22/25 18:02 Temperature 99.0 F Temperature Source Rectal Pulse Rate 89 Pulse Rate [Right Brachial] Respiratory Rate 18 Blood Pressure 148/42 H Blood Pressure [Right Arm] Blood Pressure Mean Blood Pressure Mean [Right Arm] Blood Pressure Source Automatic Cuff Blood Pressure Source [Right Arm] Blood Pressure Position Supine Blood Pressure Position [Right Arm] 02 Sat by Pulse Oximetry Oxygen Delivery Method Room Air Lab Data Lab Results 04/22/25 14:31: WBC 13.1 H, RBC 5.89 H, Hgb 15.4, Hct 46.6, MCV 79.1 L, MCH 26.1 L, MCHC 33.0, RDW 14.2, Plt Count 219, MPV 11.8 H, Neut % (Auto) 72.4, Lymph % (Auto) 19.5, [place] % (Auto) 5.9, Eos % (Auto) 0.4, Baso % (Auto) 1.0, Neut # (Auto) 9.5 H, Lymph # (Auto) 2.6, [place] # (Auto) 0.8, Eos # (Auto) 0.1, Baso # (Auto) 0.1, Sodium 137, Potassium 4.2, Chloride 104, Carbon Dioxide 28, Anion Gap 9.2, BUN 13, Creatinine 0.80, Estimated Creat Clear 49, Estimated GFR 71, Est GFR ( Amer) 86, Glucose 359 H, Calcium 9.7, Magnesium 1.9, Total Bilirubin 2.5 H, AST 38 H, ALT 32, Alkaline Phosphatase 200 H, Troponin I < 0.01, Total Protein 7.9, Albumin 4.4, Globulin 3.5 H, Albumin/Globulin Ratio 1.3, Procalcitonin 0.054, HCV Ab AD w/Rflx PCR Qn Negative, HIV Ag/Ab Combo Qual Negative 04/22/25 15:53: Urine Color Yellow, Urine Appearance Clear, Urine pH 8.0, Ur Specific [place] 1.010, Urine Protein Trace, Urine Glucose (UA) 3+, Urine Ketones 2+, Urine Blood Trace-l, Urine Nitrate Negative, Urine Bilirubin Negative, Urine Urobilinogen 0.2, Ur Leukocyte Esterase Trace, Urine RBC Occasional, Urine WBC 50-100, Ur Squamous Epith Cells Occasional, Urine Bacteria 4+ 04/22/25 17:23: Troponin I < 0.01 Orders (Tests/Meds): ED MEDICATIONS Generic Name Dose Route Start Last Admin Trade Name Freq PRN Reason Stop Dose Admin Acetaminophen 650 mg 04/22/25 18:16 Acetaminophen 325mg Tab PO 05/22/25 18:15 Q4HP PRN Fever or Mild Pain (1-3) Apixaban 5 mg 04/23/25 09:00 Apixaban 5mg Tablet PO 05/23/25 08:59 BID COUNT INCLUDES THE [facility] Aspirin 81 mg 04/23/25 09:00 Aspirin Ec 81mg Tablet PO 05/23/25 08:59 DAILY COUNT INCLUDES THE [facility] Atorvastatin Calcium 40 mg 04/23/25 21:00 Atorvastatin 40mg Tablet PO 05/23/25 20:59 HS COUNT INCLUDES THE [facility] Ceftriaxone Sodium 1 gm/ 50 mls @ 100 mls/hr 04/23/25 13:00 Sodium Chloride IV 05/03/25 12:59 Q24H COUNT INCLUDES THE [facility] Insulin Human Lispro 0 unit 04/22/25 21:20 04/23/25 05:33 Humalog 100 Units/Ml 10ml Vial ([facility]) SUBCUT 05/22/25 21:19 8 unit ACHS COUNT INCLUDES THE [facility] Administration Protocol Memantine 5 mg 04/23/25 09:00 Memantine 10mg Tablet PO 05/23/25 08:59 BID COUNT INCLUDES THE [facility] Metoprolol Succinate 25 mg 04/23/25 09:00 Metoprolol Succinate Xl 25mg Tablet PO 05/23/25 08:59 DAILY COUNT INCLUDES THE [facility] Ondansetron HCl 4 mg 04/22/25 18:16 Ondansetron 4mg/2ml Vial IV 05/22/25 18:15 Q8HP PRN Nausea Pantoprazole Sodium 40 mg 04/23/25 09:00 Pantoprazole 40mg Tablet PO 05/23/25 08:59 BID GLORIA Sodium Chloride 10 ml 04/23/25 07:19 Sodium Chloride 0.9% 10ml Flush Syringe IV 05/23/25 07:18 NEEDED PRN Maintain IV Site Discontinued Medications Generic Name Dose Route Start Last Admin Trade Name Neli PRN Reason Stop Dose Admin Ceftriaxone Sodium 1 gm/ 50 mls @ 100 mls/hr 04/22/25 16:45 04/22/25 17:07 Sodium Chloride IV 04/22/25 17:14 100 mls/hr ONCE ONE Administration Sodium Chloride 1,000 mls @ 999 mls/hr 04/22/25 16:45 04/22/25 17:07 Sod Chlor 0.9% 1000ml Bag IV 04/22/25 17:45 999 mls/hr .Q1H1M ONE Administration Sodium Chloride 1,370 mls @ 685 mls/hr 04/22/25 17:39 04/22/25 17:51 Sod Chlor 0.9% 1000ml Bag 30 ml/kg infuse over 2 hr (1370 ml) 04/22/25 19:38 685 mls/hr IV Administration .Q2H ONE Iopamidol 80 ml 04/22/25 15:24 04/22/25 15:26 Iopamidol-370 (76%);100ml Bottle IV 04/22/25 15:25 80 ml ONCE ONE Administration Sodium Chloride 50 ml 04/22/25 15:24 04/22/25 15:26 0.9 % Sodium Chloride 50 Ml Vial IV 04/22/25 15:25 50 ml ONCE ONE Administration Sodium Chloride 10 ml 04/22/25 15:24 04/22/25 15:26 Sodium Chloride 0.9% 10ml Syr (Rad Only) IV 04/22/25 15:25 10 ml ONCE ONE Administration ORDERS Category Date Time Status CT angio head Stat Cat Scan 04/22/25 13:[address] angio neck Stat Cat Scan 04/22/25 13:[address] head/brain wo con Stat Cat Scan 04/22/25 13:55 Completed CBC w/Auto Diff [Complete Blood Count Auto Diff] Stat Lab 04/22/25 14:31 Completed CMP [Comprehensive Metabolic Panel] Stat Lab 04/22/25 14:31 Completed HIV Combo Stat Lab 04/22/25 14:31 Completed Hepatitis C Ab Qual. W/ RFX Stat Lab 04/22/25 14:31 Completed Magnesium Stat Lab 04/22/25 14:31 Completed Procalcitonin Stat Lab 04/22/25 14:31 Completed Trop I [Troponin I] Stat Lab 04/22/25 14:31 Completed Troponin I Q3H Lab 04/22/25 17:23 Completed Troponin I Q3H Lab 04/22/25 20:05 Completed UA [Urinalysis and Microscopic] Stat Lab 04/22/25 15:53 Completed Blood Culture Stat Micro 04/22/25 16:48 Received Urine Culture Stat Micro 04/22/25 15:53 Results HEART Score HEART Score: 5 Critical Care <OMA Moon - Last Filed: 04/22/25 18:15> Critical Care Time Critical Care Time: Yes Attestation: On 04/22/25, the high probability of a clinically significant, sudden or life threatening deterioration of the following system(s) required my full and direct attention, intervention and personal management. The time I documented below is in addition to time spent performing reported procedures but includes the following listed in this critical care notation. Total Time Total Critical Care Time: 35
--- NOTE | 2025-04-22 13:55 | CT_ITS ---
FINAL REPORT TECHNIQUE: Multiple axial CT angiography images were performed from the foramen magnum to the vertex before and during IV contrast administration. This study was performed with techniques to keep radiation doses as low as reasonably achievable (ALARA). Individualized dose reduction techniques using automated exposure control or adjustment of mA and/or kV according to the patient's size were employed. CLINICAL HISTORY: Altered mental status FINDINGS: No acute intracranial hemorrhage or large acute cortical infarct. The brain volume is normal for the patient's age. Ventricles are of bracket normal in size and configuration. No midline shift. The basal cisterns are patent. CTA HEAD: The major intracranial arterial system is patent without hemodynamically significant stenosis or major vessel occlusion.No aneurysm is identified. IMPRESSION: No acute intracranial hemorrhage or large acute cortical infarct. No evidence of vascular injury, aneurysm, hemodynamically significant stenosis or major vessel occlusion of the intracranial arterial system. Reviewed, Interpreted and Dictated by Amol Sauer MD Transcribed by Farzana Aguiar Authenticated and [facility]
--- NOTE | 2025-04-22 13:55 | CT_ITS ---
FINAL REPORT TECHNIQUE: Noncontrast exam This study was performed with techniques to keep radiation doses as low as reasonably achievable, (ALARA). Individualized dose reduction techniques using automated exposure control or adjustment of mA and/or kV according to the patient''s size were employed. CLINICAL HISTORY: Altered mental status FINDINGS: There are multiple posterior hemispheric infarcts with a chronic appearance. There is no hemorrhage or obvious edema. Although, small acute infarct is difficult to exclude. Ventricles are normal. No mass effect is seen. Bone windows show no evidence of fracture. 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 Recommend MRI for further evaluation. Reviewed, Interpreted and Dictated by Amol Sauer MD Transcribed by Farzana Aguiar Authenticated and [facility]
--- NOTE | 2025-04-22 13:55 | CT_ITS ---
FINAL REPORT CLINICAL HISTORY: Altered mental status FINDINGS: CT NECK ANGIO, WITHOUT AND WITH CONTRAST TECHNIQUE: Thin section axial CT with contrast with multiplanar 3D MIP reconstruction. This study was performed with techniques to keep radiation doses as low as reasonably achievable, (ALARA). Individualized dose reduction techniques using automated exposure control or adjustment of mA and/or kV according to the patient''s size were employed. NASCET criteria and technique was utilized during interpretation. FINDINGS: Aortic arch: The left vertebral artery arises directly from the aortic arch. There is high-grade stenosis of 70-80% of the left vertebral artery origin. There is 60% stenosis of the left subclavian origin. All the carotid bifurcations are widely patent. There are codominant vertebral arteries. Stenosis is seen in the left vertebral artery origin. This study was performed using automated techniques to achieve radiation exposure as low as reasonably IMPRESSION: No cervical carotid stenosis. High-grade left vertebral artery origin stenosis. Reviewed, Interpreted and Dictated by Amol Sauer MD Transcribed by Farzana Aguiar Authenticated and [facility]
[2025-04-22 14:39] LABS: Basophils # 0.1 K/mm3 (0-0.2); Eosinophils # 0.1 Kmm3 (0.0-0.4); Eosinophils % 0.4 % (0.1-12.0); Hematocrit 46.6 % (37.0-47.0); Hemoglobin 15.4 g/dL (12.2-16.2); Immature Granulocytes % 0.8 %; Lymphocytes # 2.6 K/mm3 (0.7-4.5); Lymphocytes % 19.5 % (10-50); Mean Corpuscular Hemoglobin 26.1 pg (27.0-31.2); Mean Corpuscular Volume 79.1 fl (81-99); Mean Platelet Volume 11.8 fl (7.4-10.4); Monocytes # 0.8 K/mm3 (0.1-1.0); Monocytes % 5.9 % (1.7-9.3); Neutrophils # 9.5 K/mm3 (1.8-7.8); Neutrophils % 72.4 % (37.0-80.0); Nucleated Red Blood Cells # 0 10^3/uL; Nucleated Red Blood Cells % 0 %; Platelet Count 219 K/mm3 (142-424); Red Blood Count 5.89 M/mm3 (4.20-5.40); Red Cell Distribution Width 14.2 % (11.5-17.5); Red Cell Distribution Width-SD 40.2 fL; White Blood Count 13.1 K/mm3 (4.8-10.8)
[2025-04-22 14:51] LABS: Magnesium 1.9 mg/dl (1.6-2.3)
[2025-04-22 14:55] LABS: Alanine Aminotransferase 32 U/L (12-78); Albumin Level 4.4 g/dl (3.5-5.0); Albumin/Globulin Ratio 1.3 (1.1-1.8); Alkaline Phosphatase 200 U/L (38-126); Anion Gap 9.2 mEq/L (5-15); Aspartate Amino Transferase 38 U/L (14-36); Bilirubin,Total 2.5 mg/dl (0.2-1.3); Blood Urea Nitrogen 13 mg/dl (7-17); Calcium 9.7 mg/dl (8.4-10.2); Carbon Dioxide 28 mmol/L (22.0-30.0); Chloride 104 mmol/L (98-107); Creatinine Clearance Estimated 49 mL/min (50-200); Estimated Glomerular Filt Rate 71 ml/min (>60); GFR (African American) 86 ML/MIN (>60); Globulin 3.5 g/dL (1.3-3.2); Glucose 359 mg/dl (74-100); Potassium 4.2 mmoL/L (3.5-5.1); Sodium 137 mmol/L (136-145); Total Protein,Serum 7.9 g/dl (6.3-8.2)
[2025-04-22 15:09] LABS: Procalcitonin 0.054 ng/mL (0.0-2.0)
[2025-04-22 15:10] LABS: Troponin I < 0.01 ng/ml (0.00-0.034)
[2025-04-22] MEDS: SODIUM CHLORIDE 0.9% 10ML SYR (RAD ONLY) 10 ML IV (15:26)
[2025-04-22] MEDS: 0.9 % SODIUM CHLORIDE 50 ML VIAL IV (15:26)
[2025-04-22] MEDS: IOPAMIDOL-370 (76%);100ML BOTTLE 80 ML IV (15:26)
[2025-04-22 15:44] LABS: HIV Combo NEGATIVE (Negative)
[2025-04-22 15:52] LABS: Hepatitis C Ab Qual. W/ RFX NEGATIVE (Negative)
[2025-04-22 15:58] LABS: Microscopic, Urine URINE MICROSCOPIC (MICROSCOPIC)
[2025-04-22 16:14] LABS: Appearance,Urine CLEAR (Clear); Bilirubin,Urine Negative (Negative); Blood, Urine TRACE-L (Negative); Color,Urine YELLOW (Yellow); Glucose,Urine (UA) 3+ (Negative); Ketones,Urine 2+ (Negative); Leukocyte Esterase,Urine TRACE (Negative); Nitrate,Urine Negative (Negative); Protein,Urine TRACE (Negative); Urobilinogen,Urine 0.2 EU/dl (0.2)
[2025-04-22 16:28] LABS: Bacteria,Urine 4+ /lpf; RBC,Urine Occasional #/hpf (0-3); WBC,Urine 50-100 #/hpf (0-3)
[2025-04-22 16:29] LABS: Squamous Epithelial Cell,Urine Occasional #/hpf (0-5)
[2025-04-22] MEDS: 0.9 % SODIUM CHLORIDE 1000ML 1,000 ML 999 ML IV (17:07)
[2025-04-22] MEDS: CEFTRIAXONE 1 GM 1 GM in 0.9 % SODIUM CHLORIDE 50 ML IV (17:07)
--- NOTE | 2025-04-22 17:35 | PC.NURSE ---
WOODY ANTHONY SPEAKING WITH HOSPITALIST
--- NOTE | 2025-04-22 17:44 | PC.NURSE ---
DIRECTOR STRATEGIC ACCOUNT MANAGEMENT NOTIFIED OF ADMISSION
[2025-04-22] MEDS: 0.9 % SODIUM CHLORIDE 1000ML 1,370 ML 685 ML IV (17:51)
--- NOTE | 2025-04-22 18:10 | EXP.HP ---
History of Present Illness *Admission Date: 04/22/25 *Reason for visit:: Weakness *History of present illness: Fatoumata Bailey is a 70-year-old female with a medical history significant for hypertension, type 2 diabetes presents from home after son noticed her to be more confused, weak today. Son states patient had been doing well since she requested to be discharged from long-term nursing facility 3 weeks ago up until today. On my evaluation, patient looked very weak and confused and not the best historian. Workup in the ED significant for grossly abnormal UA, WBC 13.1, with tachycardia. She was given a sepsis bolus and ceftriaxone in the ED. Case discussed with ED provider initially was made to admit patient for acute metabolic encephalopathy, weakness from sepsis from UTI. [facility] Disclaimer: The information contained in this section may have been updated after the patient was seen, as this information can be updated by other users. Medical History Diabetes Surgical History History of uterine myomectomy or hysterotomy Social History (Updated 04/04/25 @ 11:56 by Amanda Olguin MA) Smoking Status: Never smoker alcohol intake: never current occupational status: disabled Travel in the last 8 weeks?: None Have you lived/traveled outside US in past 30 days?: No Contact w/someone who lives/traveled outside US past 30 days?: No Exposure to someone with infectious disease in past 14 days?: No Do you have a fever (greater than 100.4 F or 38 C)?: No Have you tested positive for COVID-19?: No Exposed to someone with COVID-19 in past 14 days?: No Do you have a sore throat?: No Do you have a cough?: No Do you have any weakness?: No Do you have any diarrhea?: No Are you experiencing any unusual bleeding?: No Do you have any muscle aches/pain?: No Do you have any abdominal pain?: No Are you experiencing loss of taste or smell?: No Other Medical History Have you received the Pneumonia Vaccine: Yes Meds Home Medications and Allergies Home Medications ?Medication ?Instructions ?Recorded ?Confirmed ?Type apixaban 5 mg tablet (Eliquis) 5 mg PO BID #30 tabs 04/04/25 04/22/25 Rx atorvastatin 40 mg tablet (Lipitor) 40 mg PO DAILY #30 tabs 04/04/25 04/22/25 Rx losartan 25 mg tablet 25 mg PO DAILY #30 tabs 04/04/25 04/22/25 Rx memantine 5 mg tablet (Namenda) 5 mg PO BID #60 tabs 04/04/25 04/22/25 Rx metoprolol succinate 25 mg 25 mg PO DAILY #30 tabs 04/04/25 04/22/25 Rx tablet,extended release 24 hr omeprazole 20 mg capsule,delayed 20 mg PO BID #60 caps 04/04/25 04/22/25 Rx release sitagliptin phosphate 25 mg tablet 25 mg PO DAILY #30 tabs 04/04/25 04/22/25 Rx (Januvia) spironolactone 25 mg tablet 25 mg PO DAILY #30 tabs 04/04/25 04/22/25 Rx New Prescriptions to Start Prescriptions: Allergies Allergy/AdvReac Type Severity Reaction Status Date / Time codeine Allergy Mild Unknown Verified 04/22/25 17:05 allergy reaction zolpidem Allergy Itchy Verified 04/22/25 17:05 Exam Data for Last 24 hours Vital signs and Labs for Last 24 Hours: Temp Pulse Resp BP Pulse Ox O2 Del Method 99.0 F 89 18 148/42 H 98 Room Air 04/22/25 18:02 04/22/25 18:02 04/22/25 18:02 04/22/25 18:02 04/22/25 17:04 04/22/25 18:02 Laboratory Results - last 24 hr 04/22/25 14:31: WBC 13.1 H, RBC 5.89 H, Hgb 15.4, Hct 46.6, MCV 79.1 L, MCH 26.1 L, MCHC 33.0, RDW 14.2, Plt Count 219, MPV 11.8 H, Neut % (Auto) 72.4, Lymph % (Auto) 19.5, [place] % (Auto) 5.9, Eos % (Auto) 0.4, Baso % (Auto) 1.0, Neut # (Auto) 9.5 H, Lymph # (Auto) 2.6, [place] # (Auto) 0.8, Eos # (Auto) 0.1, Baso # (Auto) 0.1, Sodium 137, Potassium 4.2, Chloride 104, Carbon Dioxide 28, Anion Gap 9.2, BUN 13, Creatinine 0.80, Estimated Creat Clear 49, Estimated GFR 71, Est GFR ( Amer) 86, Glucose 359 H, Calcium 9.7, Magnesium 1.9, Total Bilirubin 2.5 H, AST 38 H, ALT 32, Alkaline Phosphatase 200 H, Troponin I < 0.01, Total Protein 7.9, Albumin 4.4, Globulin 3.5 H, Albumin/Globulin Ratio 1.3, Procalcitonin 0.054, HCV Ab AD w/Rflx PCR Qn Negative, HIV Ag/Ab Combo Qual Negative 04/22/25 15:53: Urine Color Yellow, Urine Appearance Clear, Urine pH 8.0, Ur Specific [place] 1.010, Urine Protein Trace, Urine Glucose (UA) 3+, Urine Ketones 2+, Urine Blood Trace-l, Urine Nitrate Negative, Urine Bilirubin Negative, Urine Urobilinogen 0.2, Ur Leukocyte Esterase Trace, Urine RBC Occasional, Urine WBC 50-100, Ur Squamous Epith Cells Occasional, Urine Bacteria 4+ I & O for Last 24 hours: Intake & Output 04/19/25 04/20/25 04/21/25 04/22/25 23:59 23:59 23:59 23:59 Weight 58.967 kg Constitutional Constitutional: mild distress *Routine HEENT Exam Head: Present normocephalic Eye: Present EOMI and PERRL ENT: Present mucous membranes moist *Routine Neck Exam Neck: Present supple; Absent lymphadenopathy *Routine Respiratory Exam Respiratory: Present CTA bilaterally *Routine Cardiovascular Exam Cardiovascular: Present RRR *Routine Abdominal Exam Abdominal: Present soft and normoactive bowel sounds; Absent tenderness *Routine Rectal Exam Rectal:: deferred *Routine Genitalia Exam Genitalia:: deferred *Routine Extremities Exam Extremities: Absent cyanosis, clubbing or edema *Routine Skin Exam Skin: Present warm; Absent rash *Routine Neurological Exam Neurological: Present alert Assessment and Plan *Assessment and plan (1) Urinary tract infection in female: Status: Acute Category: Medical Code(s): N39.0 - Urinary tract infection, site not specified (2) Sepsis without septic shock: Status: Acute Category: Medical Code(s): A41.9 - Sepsis, unspecified organism (3) Chronic GERD: Status: Acute Category: Medical Code(s): K21.9 - Gastro-esophageal reflux disease without esophagitis Plan Fatoumata Bailey is a 70-year-old female with a medical history significant for hypertension, type 2 diabetes presents from home after son noticed her to be more confused, weak today. Son states patient had been doing well since she requested to be discharged from long-term nursing facility 3 weeks ago up until today. On my evaluation, patient looked very weak and confused and not the best historian. Workup in the ED significant for grossly abnormal UA, WBC 13.1, with tachycardia. She was given a sepsis bolus and ceftriaxone in the ED. Case discussed with ED provider initially was made to admit patient for acute metabolic encephalopathy, weakness from sepsis from UTI. #Acute metabolic encephalopathy #Sepsis #UTI ? Presents with 1 day onset of confusion, weakness. Initial UA grossly abnormal, WBC 13.1 with tachycardia. ? Continue IV ceftriaxone day 1/5. ? Follow-up urine, blood cultures. #Type 2 diabetes ? Follow-up hemoglobin A1c. ? LDSSI, ACHS glucose checks. #Hypertension ? BP stable at this time. Will resume once appropriate. #Suspected A-fib ? Patient is a poor historian at this time. Continue metoprolol, Eliquis. #GERD ? Continue home PPI. Full code DVT prophylaxis: Lovenox 40 mg
[2025-04-22 18:11] LABS: Troponin I < 0.01 ng/ml (0.00-0.034)
--- NOTE | 2025-04-22 18:17 | PC.NURSE ---
arrived to floor from ED
[2025-04-22 20:46] LABS: Troponin I < 0.01 ng/ml (0.00-0.034)
[2025-04-22 20:52] LABS: POC Glucose,Bedside 296 (70-110)
[2025-04-22] MEDS: humaLOG 100 UNITS/ML 10ML VIAL (SSI) SUBCUT (22:15)
[2025-04-23 04:00] VITALS: BP 152/84; PULSE 80; RESP 16; TEMP 37; O2SAT 98; BMI 21.4
--- NOTE | 2025-04-23 05:26 | PC.NURSE ---
Addendum entered by Mateo Singer RN 04/23/25 05:28: No further complaints at this time. Pt resting in bed with call light in reach,. Plan of care ongoing. Original Note: Pt A&O to self. Pt is on RA. Pt is confused, with little information about herself. Given pt's history of diabetes, pts blood glucose was checked, provider notified, and medicated per DEC. Pt has had no acute changes throughout this shift.
[2025-04-23] MEDS: humaLOG 100 UNITS/ML 10ML VIAL (SSI) SUBCUT ×4 (05:33→21:10)
[2025-04-23 05:42] LABS: POC Glucose,Bedside 325 (70-110)
[2025-04-23 06:24] LABS: Basophils # 0.2 K/mm3 (0-0.2); Basophils % 0.9 % (0.1-2.0); Eosinophils # 0.1 Kmm3 (0.0-0.4); Eosinophils % 0.4 % (0.1-12.0); Hematocrit 44.2 % (37.0-47.0); Hemoglobin 14.1 g/dL (12.2-16.2); Immature Granulocytes # 0.17 10^3uL; Immature Granulocytes % 0.9 %; Lymphocytes # 2.8 K/mm3 (0.7-4.5); Lymphocytes % 14.9 % (10-50); Mean Corpuscular HGB Conc 31.9 g/dL (31.8-35.4); Mean Corpuscular Hemoglobin 25.2 pg (27.0-31.2); Mean Corpuscular Volume 78.9 fl (81-99); Mean Platelet Volume 11.5 fl (7.4-10.4); Monocytes # 1.3 K/mm3 (0.1-1.0); Monocytes % 7.3 % (1.7-9.3); Neutrophils # 13.9 K/mm3 (1.8-7.8); Neutrophils % 75.6 % (37.0-80.0); Nucleated Red Blood Cells # 0 10^3/uL; Nucleated Red Blood Cells % 0 %; Platelet Count 203 K/mm3 (142-424); Red Cell Distribution Width 14.4 % (11.5-17.5); Red Cell Distribution Width-SD 40.6 fL; White Blood Count 18.4 K/mm3 (4.8-10.8)
[2025-04-23 06:28] LABS: Albumin Level 3.9 g/dl (3.5-5.0); Chloride 103 mmol/L (98-107); Potassium 3.6 mmoL/L (3.5-5.1); Sodium 138 mmol/L (136-145)
[2025-04-23 06:30] LABS: Blood Urea Nitrogen 10 mg/dl (7-17); Creatinine Clearance Estimated 41 mL/min (50-200); Estimated Glomerular Filt Rate 83 ml/min (>60); GFR (African American) 100 ML/MIN (>60)
[2025-04-23 06:31] LABS: Alanine Aminotransferase 28 U/L (12-78); Albumin/Globulin Ratio 1.3 (1.1-1.8); Alkaline Phosphatase 189 U/L (38-126); Anion Gap 16.6 mEq/L (5-15); Aspartate Amino Transferase 35 U/L (14-36); Bilirubin,Total 1.9 mg/dl (0.2-1.3); Calcium 8.6 mg/dl (8.4-10.2); Carbon Dioxide 22 mmol/L (22.0-30.0); Glucose 277 mg/dl (74-100); Total Protein,Serum 6.9 g/dl (6.3-8.2)
[2025-04-23 08:22] VITALS: BP 132/62; PULSE 100; RESP 20; TEMP 36.6; O2SAT 96
--- NOTE | 2025-04-23 08:59 | HMH.PHAINT1 ---
Pharmacy Intervention Comments: MEDICATION RECONCILIATION COMPLETED ON PATIENT USING EXTERNAL FILL HISTORY FROM PHARMACY AND LIST FROM PCP OFFICE. -LIZANDRO ALEXIS, MIKHAILD
--- NOTE | 2025-04-23 09:51 | SW/DCPLANNER ---
Addendum entered by [facility] 04/25/25 09:42: January w/ [facility] has reviewed information and will follow up w/ patient, family and [facility]. Addendum entered by [facility] 04/25/25 07:54: Per after reviewing MRI Hospice is suggested. Dr Olson did have a conversation w/ patient's son whom is agreeable to placement at [facility] w/ Hospice services. I have updated [facility]. Patient information will be faxed to [facility] this AM. Patient will discharge to [facility] ICF level of care w/ Hospice to follow up today. Addendum entered by [facility] 04/24/25 14:22: Per patient will have an MRI prior to discharge to [facility]. Addendum entered by [facility] 04/24/25 11:30: I have updated [facility]/ [facility] that patient will discharge today ICF level of care. Addendum entered by [facility] 04/23/25 15:36: Noy w/ [facility] can accept patient ICF level of care tomorrow morning. I will update MD and family. Addendum entered by [facility] 04/23/25 14:31: Per Izabela / [facility] she does have a female bed available. Patient information will be faxed to [facility] today [phone]. Addendum entered by [facility] 04/23/25 14:21: Julien called back stating that he prefer his mother be placed at [facility]. I will follow up w/ [facility] regarding bed availability. I did inform son that if [facility] is not able to accept then [facility] can accept patient. Son is fine w/ patient returning to [facility] if [facility] is not an option. I will continue to follow up. Addendum entered by [facility] 04/23/25 13:03: I spoke w/ Nallely whom stated that I will need to speak w/ her son Julien regarding discharge plans. I have attempted to contact Julien x 2 regarding discharge plans. Sarah w/ [facility] is able to accept this patient LTC once medically stable for discharge. Original Note: Patient recently discharged from [facility]. I did speak w/ Sarah from [facility] this AM. Sarah stated that family members decided after 6 months of being in facility to take her home. Sarah is able to offer patient a LTC bed if willing to return. I have attempted to call multiple family members w/ no answer at this time. I will continue to follow up regarding discharge planning. Discharge date is unknown at this time. Nallely Bailey (sister) [phone] Julien (son) [phone] Daniele (son) [phone]
--- NOTE | 2025-04-23 10:00 | HMH.PTEV ---
Physical Therapy Evaluation Rehab PT IP Evaluation Start: 04/23/25 07:38 Freq: ONCE Status: Active Protocol: Document 04/23/25 09:54 RODRIGUEZ (Rec: 04/23/25 09:59 RODRIGUEZ [id number]) Subjective/History History History Per H&P: Fatoumata Bailey is a 70-year-old female with a medical history significant for hypertension, type 2 diabetes presents from home after son noticed her to be more confused, weak today. Son states patient had been doing well since she requested to be discharged from long-term nursing facility 3 weeks ago up until today. On my evaluation, patient looked very weak and confused and not the best historian. Workup in the ED significant for grossly abnormal UA, WBC 13.1, with tachycardia. She was given a sepsis bolus and ceftriaxone in the ED. Case discussed with ED provider initially was made to admit patient for acute metabolic encephalopathy, weakness from sepsis from UTI . Subjective Subjective Pt is non-verbal this morning. Not able to state name. Able to make eye contact but not able to follow any verbal commands. New diagnosis of No cancer in past 12 months? [facility] How much help from another person do you currently need... Turning from your Total back to your side while in a flat bed without using bedrails? Moving from lying on Total back to sitting on the side of a flat bed without using bedrails? Moving to and from a Total bed to a chair ( including a wheelchair)? Standing up from a Total chair using your arms? (e.g., wheelchair, bedside chair) Walking in hospital Total room? Climbing 3-5 steps Total with a railing? Mobility Score 6 Mobility Level [facility] Mobility 2 Bed activities/dependent transfer Mobility Calculator Rehab PT IP Eval Objective Appearance Patient Behavior Confused Difficulty following severe instructions Speech Pattern No Speech Ambulation Patient Able to No Ambulate Balance Ability to Arise Unable Transfers Bed Transfer Ability Total/Dependent (100%) Rehab PT IP prob,goals,plan Problems Date of Evaluation: 04/23/25 PT IP Problems Bed Mobility,Transfers,Gait,Balance,Self care,Safety Rehab Potential Rehab Potential Good Plan PT Intervention Plan Bed Mobility,Transfers,Gait,Balance,Self care,Safety, Therapeutic Exercise Other Intervention 1-2 times Plan PT Plan Frequency Daily Duration LOS Discharge Goals Bed Transfer Ability Maximum x 1 (75% assist) Sit to Stand Chair Maximum x 1 (75% assist) Transfer Ability Discharge Plan PT Discharge Plan Initial physical therapy evaluation performed. Patient presents below baseline at this time in functional mobility, transfers, and strength. Pt not safe to return home at this time d/t current level of functional mobility. PT recommending short-term rehabilitation stay upon d/c from [facility]. Pt would benefit from skilled PT while at [facility] to prevent further functional decline and maximize safety with mobility. Eval Complexity Eval Charge Codes 31294 - Moderate Complexity PHYSICIAN CERTIFICATION: I certify the specified therapy services for Fatoumata Bailey are required, authorized, and reviewed every 30 days.
--- NOTE | 2025-04-23 10:22 | HMH.OTEV ---
OT Inpatient Evaluation Rehab OT IP Evaluation Start: 04/23/25 07:38 Freq: ONCE Status: Active Protocol: Document 04/23/25 10:16 AURELIA (Rec: 04/23/25 10:22 AURELIA [id number]) Rehab OT IP Assessment Subjective History Per H&P: Fatoumata Bailey is a 70-year-old female with a medical history significant for hypertension, type 2 diabetes presents from home after son noticed her to be more confused, weak today. Son states patient had been doing well since she requested to be discharged from long-term nursing facility 3 weeks ago up until today. On my evaluation, patient looked very weak and confused and not the best historian. Workup in the ED significant for grossly abnormal UA, WBC 13.1, with tachycardia. She was given a sepsis bolus and ceftriaxone in the ED. Case discussed with ED provider initially was made to admit patient for acute metabolic encephalopathy, weakness from sepsis from UTI . Subjective Pt is supine in bed when therapy entered. Pt unable to state name and report background and hx. Pt unable to vocalize/make utterances at this time. Pt able to make eye contact but not able to follow any verbal commands. Pt was dependent to go from supine to EOB. Pt unable to hold static sitting balance with Max A. Pt then went from EOB to supine in bed with dependent assist. Pt left with call light and all other needs within reach. Objective Right Upper Sev Limitation >75% Extremity Gross ROM Left Upper Extremity Sev Limitation >75% Gross ROM Bed Mobility bed mobility-scooting,bed mobility - supine/sit Assist Level Total/Dependent (100%) Decrease in Yes Endurance Rehab OT IP prob,goals,plan Problems Date of Evaluation: 04/23/25 OT IP Problems Bed Mobility,Transfers,Balance,Self care,Safety Rehab Potential Rehab Potential Good Plan OT intervention Plan Bed Mobility,Transfers,Balance,Self care,Safety, Therapeutic Exercise OT Plan Frequency Daily Duration LOS Discharge Goals Bed Mobility Ability Assistance x1 Sit to Stand Chair Maximum x 1 (75% assist) Transfer Ability Chair Transfer Maximum x 1 (75% assist) Ability Chair Transfer Sit to/from Ambulatory Technique Feeding Ability Assist with Tray Set Up Commode/Toilet Raised Toilet Seat,Grab Bars Transfer Assistive Devices Decrease in No Endurance Discharge Plan OT Discharge Plan Initial OT evaluation performed. Patient presents below baseline at this time in functional mobility, transfers, and strength/endurance. Pt not safe to return home at this time d/t current level of functional mobility and safety concerns. OT recommending short-term rehabilitation stay upon d/c from [facility]. Pt would benefit from skilled acute OT while at [facility] to prevent further functional decline in occupational performance. Eval Complexity Eval Charge Codes 55368 - Moderate Complexity PHYSICIAN CERTIFICATION: I certify the specified therapy services for Fatoumata Bailey are required, authorized, and reviewed every 30 days.
--- NOTE | 2025-04-23 10:59 | PC.NURSE ---
Addendum entered by Demi Gibbs RN 04/23/25 11:47: notified Original Note: attempted multiple times to give pt her morning meds with water, applesauce, and pudding. pt would not open her mouth to try to take medications, therefore meds weren't given. Pt's sister called and reports that the pt does this at home as well.
[2025-04-23 11:11] LABS: POC Glucose,Bedside 228 (70-110)
[2025-04-23 12:03] VITALS: BP 144/70; PULSE 96; RESP 20; TEMP 36.4; O2SAT 99
[2025-04-23] MEDS: CEFTRIAXONE 1 GM 1 GM in 0.9 % SODIUM CHLORIDE 50 ML IV (12:04)
--- NOTE | 2025-04-23 13:20 | EXP.ACUTE.PN ---
Subjective *Date: 04/23/25 *Time: 13:20 Interval history: Stable overnight. On room air. No nausea or vomiting. Still awaiting culture results. Intermittent responsiveness to staff. Medical Exam Vital signs and Labs for Last 24 Hours: Vital Signs Temp Pulse Pulse Resp BP BP Pulse Ox 04/23/25 13:00 04/23/25 12:03 97.6 F 96 H 20 144/70 H 99 04/23/25 11:00 04/23/25 09:00 04/23/25 08:22 97.9 F 100 H 20 132/62 96 04/23/25 08:00 04/23/25 06:49 04/23/25 05:00 04/23/25 04:00 98.6 F 80 16 152/84 H 98 04/23/25 03:00 04/23/25 00:53 04/22/25 23:58 100.2 F H 106 H 17 145/88 H 98 04/22/25 23:00 04/22/25 21:00 04/22/25 20:00 04/22/25 19:50 99.0 F 92 H 17 143/90 H 98 04/22/25 18:47 04/22/25 18:20 97.5 F L 87 18 148/82 H 97 04/22/25 18:02 99.0 F 89 18 148/42 H 04/22/25 17:56 99.0 F 04/22/25 17:54 04/22/25 17:04 94 H 136/97 H 98 04/22/25 16:00 89 150/88 H 98 04/22/25 14:00 98 H 155/88 H 97 04/22/25 13:49 98.1 F 105 H 20 171/90 H 97 O2 Del Method 04/23/25 13:00 Room Air 04/23/25 12:03 Room Air 04/23/25 11:00 Room Air 04/23/25 09:00 Room Air 04/23/25 08:22 Room Air 04/23/25 08:00 Room Air 04/23/25 06:49 Room Air 04/23/25 05:00 Room Air 04/23/25 04:00 Room Air 04/23/25 03:00 Room Air 04/23/25 00:53 Room Air 04/22/25 23:58 Room Air 04/22/25 23:00 Room Air 04/22/25 21:00 Room Air 04/22/25 20:00 Room Air 04/22/25 19:50 Room Air 04/22/25 18:47 Room Air 04/22/25 18:20 Room Air 04/22/25 18:02 Room Air 04/22/25 17:56 04/22/25 17:54 Room Air 04/22/25 17:04 04/22/25 16:00 04/22/25 14:00 04/22/25 13:49 Room Air Intake and Output 04/22/25 04/23/25 04/23/25 23:59 07:59 15:59 Intake Total 120 / 120 Output Total 300 / 300 150 / 250 100 / 250 Balance -300 / -300 -30 / -130 -100 / -130 Intake: Intake, Oral Amount 120 / 120 Output: Output, Urine Amount 300 / 300 150 / 250 100 / 250 Other: Number of Unmeasured Voids 0 0 0 Number of Bowel Movements 1 1 Weight 51.211 kg 49.487 kg Patient Weight 04/23/25 23:59 Weight 49.487 kg Laboratory Results - last 24 hr 04/22/25 14:31: WBC 13.1 H, RBC 5.89 H, Hgb 15.4, Hct 46.6, MCV 79.1 L, MCH 26.1 L, MCHC 33.0, RDW 14.2, Plt Count 219, MPV 11.8 H, Neut % (Auto) 72.4, Lymph % (Auto) 19.5, Baldwin % (Auto) 5.9, Eos % (Auto) 0.4, Baso % (Auto) 1.0, Neut # (Auto) 9.5 H, Lymph # (Auto) 2.6, Baldwin # (Auto) 0.8, Eos # (Auto) 0.1, Baso # (Auto) 0.1, Sodium 137, Potassium 4.2, Chloride 104, Carbon Dioxide 28, Anion Gap 9.2, BUN 13, Creatinine 0.80, Estimated Creat Clear 49, Estimated GFR 71, Est GFR ( Amer) 86, Glucose 359 H, Calcium 9.7, Magnesium 1.9, Total Bilirubin 2.5 H, AST 38 H, ALT 32, Alkaline Phosphatase 200 H, Troponin I < 0.01, Total Protein 7.9, Albumin 4.4, Globulin 3.5 H, Albumin/Globulin Ratio 1.3, Procalcitonin 0.054, HCV Ab AD w/Rflx PCR Qn Negative, HIV Ag/Ab Combo Qual Negative 04/22/25 15:53: Urine Color Yellow, Urine Appearance Clear, Urine pH 8.0, Ur Specific Anthony 1.010, Urine Protein Trace, Urine Glucose (UA) 3+, Urine Ketones 2+, Urine Blood Trace-l, Urine Nitrate Negative, Urine Bilirubin Negative, Urine Urobilinogen 0.2, Ur Leukocyte Esterase Trace, Urine RBC Occasional, Urine WBC 50-100, Ur Squamous Epith Cells Occasional, Urine Bacteria 4+ 04/22/25 17:23: Troponin I < 0.01 04/22/25 20:05: Troponin I < 0.01 04/22/25 20:44: POC Glucose 296 H 04/23/25 05:32: POC Glucose 325 H* 04/23/25 05:33: WBC 18.4 H D, RBC 5.60 H, Hgb 14.1, Hct 44.2, MCV 78.9 L, MCH 25.2 L, MCHC 31.9, RDW 14.4, Plt Count 203, MPV 11.5 H, Neut % (Auto) 75.6, Lymph % (Auto) 14.9, Baldwin % (Auto) 7.3, Eos % (Auto) 0.4, Baso % (Auto) 0.9, Neut # (Auto) 13.9 H, Lymph # (Auto) 2.8, Baldwin # (Auto) 1.3 H, Eos # (Auto) 0.1, Baso # (Auto) 0.2, Sodium 138, Potassium 3.6, Chloride 103, Carbon Dioxide 22, Anion Gap 16.6 H, BUN 10, Creatinine 0.70, Estimated Creat Clear 41, Estimated GFR 83, Est GFR ( Amer) 100, Glucose 277 H D, Calcium 8.6, Total Bilirubin 1.9 H, AST 35, ALT 28, Alkaline Phosphatase 189 H, Total Protein 6.9, Albumin 3.9 D, Globulin 3.0, Albumin/Globulin Ratio 1.3 04/23/25 11:04: POC Glucose 228 H I & O for Labs for Last 24 Hours: Intake & Output 04/20/25 04/21/25 04/22/25 04/23/25 23:59 23:59 23:59 23:59 Intake Total 120 / 120 Output Total 300 / 300 250 / 250 Balance -300 / -300 -130 / -130 Weight 51.211 kg 49.487 kg Microbiology Reports for the Last 24 Hours: Microbiology 04/22/25 15:53 Urine,Clean Catch Urine Culture - Preliminary Constitutional: Present mild distress, thin and chronically ill appearing Comment:: Flat affect, not following commands, not combative Head: Present atraumatic and normocephalic Respiratory: Absent respiratory distress, rhonchi, stridor or wheezes Cardiac: Present Reg Rate and Rhythm GI: Present soft; Absent distention Extremities: Present normal inspection; Absent edema Skin: Present intact Neuro: Present alert and awake Comment:: Unable to assess orientation. Not answering questions or following commands. Affect flat. Assessment and Plan *Assessment and plan (1) Urinary tract infection in female: Status: Acute Category: Medical Code(s): N39.0 - Urinary tract infection, site not specified (2) Sepsis without septic shock: Status: Acute Category: Medical Code(s): A41.9 - Sepsis, unspecified organism (3) Chronic GERD: Status: Acute Category: Medical Code(s): K21.9 - Gastro-esophageal reflux disease without esophagitis (4) CVA (cerebral vascular accident): Status: Chronic Category: Medical Code(s): I63.9 - Cerebral infarction, unspecified (5) Dementia: Status: Chronic Category: Medical Code(s): F03.90 - Unspecified dementia, unspecified severity, without behavioral disturbance, psychotic disturbance, mood disturbance, and anxiety (6) Diabetes: Status: Chronic Category: Medical Code(s): E11.9 - Type 2 diabetes mellitus without complications Plan Fatoumata Bailey is a 70-year-old female with a medical history significant for hypertension, type 2 diabetes presents from home after son noticed her to be more confused, weak today. Son states patient had been doing well since she requested to be discharged from long-term nursing facility 3 weeks ago up until today. On my evaluation, patient looked very weak and confused and not the best historian. Workup in the ED significant for grossly abnormal UA, WBC 13.1, with tachycardia. She was given a sepsis bolus and ceftriaxone in the ED. Case discussed with ED provider initially was made to admit patient for acute metabolic encephalopathy, weakness from sepsis from UTI. Discussed case with case management today, working on getting patient back to rehab as therapy recommends placement. Patient minimally interactive with staff, not following commands. Will make eye contact but not answering questions. Will speak spontaneously. Continues to require patient management. Problems addressed as follows: #Acute metabolic encephalopathy #Sepsis #UTI ? Presents with 1 day onset of reported confusion, weakness. Initial UA grossly abnormal, WBC 13.1 with tachycardia. - White count worsened 18.4. Afebrile however. Continue antibiotics with ceftriaxone IV 1 g daily. - Blood and urine cultures pending -Patient does have a history of strokes. CT obtained at time of admission grossly abnormal, Per my review of CT head, has extensive infarcts bilaterally. Appear chronic. Do not appreciate any edema or acuity on CT. - Repeat CBC, CMP, Mg ordered for the morning - Kidney function stable with BUN 10, creatinine 0.7. Magnesium 1.9. Potassium 3.6 #Type 2 diabetes ?A1c ordered and pending. Morning glucose 277. Continue sliding scale insulin and fingersticks ACHS. Follow-up hemoglobin A1c. -Holding sitagliptin in the setting of suspected UTI #Hypertension: Blood pressure creasing today. Will resume losartan 25 mg daily. Continue metoprolol succinate 25 mg daily. #Suspected A-fib: Patient is a poor historian at this time. Continue metoprolol, Eliquis. #GERD: Continue home PPI. Dementia - Continue memantine 5 mg twice daily. Complicates all aspects of her care Full code DVT prophylaxis: Eliquis 5 mg twice daily Diabetic diet
[2025-04-23 13:39] LABS: Acinetobacter calcoaceticus-ba Not Detected; Bacteroides fragilis Not Detected; Candida albicans Not Detected; Candida auris Not Detected; Candida glabrata Not Detected; Candida krusei Not Detected; Candida parapsilosis Not Detected; Candida tropicalis Not Detected; Cryptococcus neoformans/gattii Not Detected; Enterobacter cloacae complex Not Detected; Enterobacterales Not Detected; Enterococcus faecalis Not Detected; Enterococcus faecium Not Detected; Haemophilus influenzae Not Detected; Klebsiella aerogenes Not Detected; Klebsiella pneumoniae grp Not Detected; Listeria monocytogenes Not Detected; Neisseria meningitidis Not Detected; Proteus spp. Not Detected; Pseudomonas aeruginosa Not Detected; Salmonella spp. Not Detected; Serratia marcescens Not Detected; Staphylococcus epidermidis Detected; Staphylococcus lugdunensis Not Detected; Staphylococcus spp. Detected; Stenotrophomonas maltophilia Not Detected; Streptococcus agalactiae(GrpB) Not Detected; Streptococcus pneumoniae Not Detected; Streptococcus pyogenes Group A Not Detected; Streptococcus spp. Not Detected; mecA/C Detected
--- OUTSIDE RECORDS SUMMARY | 2025-04-23 14:04 | XMS_ITS | Encounter Summary ---
Author Organization [place] [address] Care Team Providers Care Systems Project Manager Name Role Phone Jewel Armas MD Unavailable [phone] Ivan Lucia MD Unavailable [phone] Eliezer Gan MD Unavailable [phone] Júnior Lawrence DO Primary Care Provider [phone] Thea Calderon RN Unavailable Unavail able Liz Galan RN Unavailable Unav ailable Sheila Rock MD Primary Care Provider [phone] Ángel Rose MD Unavailable [phone] Glendy Ch MD Unavailable [phone] Samantha Deleon RN Unavailable Unavaila Presley Sarabia MD Primary Care Provider [phone] Yumiko Arnett Unavailable Unavailable Jai Olivo BA, COS Unavailable UnavailWisam Rdz MD Primary Care Provider Noy Chang RN Unavailable Unavailable Latrice Frye DOWEL POINTER Unavailable UnavaZoey Soares BA, COS Unavailable Unavailable Jai Olivo BA, COS Unavailable Unavailabl e Júnior Lawrence DO Primary Care Provider [phone] Zoey Jimenez BA, COS Unavailable Unavailable Gabriela Solorzano BS, COS Unavailable Unavail able Yumiko Arnett Unavailable Unavailable Erna Henning DOWEL POINTER Unavailable Thea Chaparro RN Unavailable Unavail able Encounter Details Date Type Department Care Team (Late st Contact Info) Description 04/30/2020 Orders Only [facility] [place]ah [place] [id number] Carlita Blue MD [address] [place] [phone] Social History Tobacco Use Types Packs/Day Years Used Date Smoking Tobacco: Never Smokeless Tobacco: Never Alcohol Use Standard Drinks/Week Comments No 0 (1 standard drink = 0.6 oz pur e alcohol) Overall Financial Resource Strain (CARDIA) Answe r Date Recorded Difficulty of Paying Living Expenses Not hard at all 01/07/2020 PHQ-2 Answer Date Recorded PHQ-2 Score 0 03/21/2019 Hunger Vital Sign Answer Date Recorded Worried About Running Out of Food in the Last Ye ar Never true 01/07/2020 Ran Out of Food in the Last Year Never true 01/07/2020 PRAPARE - Transportation Answer Date Re corded Lack of Transportation (Medical) No 01/07/2020 Lack of Transportation (Non-Medical) No 01/07/2020 Sexually Active Control Partners Comments Not Currently Comments No Sex and Gender Information Value Date Recorded Sex Assigned at Not on file Legal Sex Female 10:11 PM EDT Gender Identity Not on file Sexual Orientation Not on file COVID-19 Exposure Response Date Recorded In the last month, have you been in contact with someone who was confirmed or suspected to have Coronavirus / COVID-19? No / Unsure 04/30/2020 11:42 AM EDT documented as of this encounter Functional Status * Is the person deaf or does he/she have serious difficulty hearing? Answer Date of Assessment Author No 11/07/2019 4:36 PM Carin Castillo RMA * Is the person blind or does he/she have serious difficulty seeing even when wearing glasses? Answer Date of Assessment Author No 11/07/2019 4:36 PM Carin Castillo RMA * Does this person have serious difficulty walking or climbing stairs? Answer Date of Assessment Author No 11/07/2019 4:36 PM Carin Castillo RMJeremy * Does this person have difficulty dressing or bathing? Answer Date of Assessment Author No 11/07/2019 4:36 PM KRISSY ChristiandayronCarinIRMA * Because of a physical, mental or emotional condition, does this person have difficulty doing errands alone such as visiting a doctor's office or shopping? Answer Date of Assessment Author No 11/07/2019 4:36 PM Carin Castillo IRMA documented as of this encounter Mental Status * Because of a physical, mental or emotional condition, does this person have serious difficulty concentrating, remembering or making decisions? Answer Entry Date Author No 11/07/2019 4:36 PM Carin Castillo RMJeremy documented in this encounter Plan of Treatment [...] Result Component 10.9(02/03/20 11:23 AM EDT) No Blanca Oden RMA documented as of this encounter Procedures Procedure Name Priority Date/Time Associated Diagnosis Comments [employer] MPN EXTENDED REFLEX PANEL Routine 04/30/2020 11:49 AM EDT documented in this encounter Results * [employer] MPN EXTENDED REFLEX PANEL (04/30/2020 11:49 AM EDT) [facility] Result JAK2 V617F Mutation = Not Detected JAK2, EXON 12-14 Mutation = Not Detected Calreticulin (CALR) Mutation = Not Detected MPL Mutation = Not Detected Clinical Significance = The JAK2 V617F mutation has been reported in >80% of the patients with polycythemia vera (PV), 30-50% of patients with either essential thrombocythemia (ET) or primary myelofibrosis (PMF). This mutation is not detected in normal individuals. A small subset of patients with myeloproliferative neoplasms (MPN) that are negative for the JAK2 V617F mutation will harbor JAK2 mutations in exon 12. More rare mutations are detected in exons 13 and 14. JAK2 exon 12 mutations have been associated with erythrocytosis and atypical bone marrow morphology. JAK2 mutations can be used to differentiate reactive conditions from neoplastic processes. MPL W515 and S505 mutations are present in JAK2 negative patients with primary myelofibrosis (PMF) or essential thrombocythemia (ET) at a frequency of approximately 1-5%. The MPL S505 mutation is usually detected in patients with familial essential thrombocythemia. Calreticulin (CALR) is endoplasmic reticulum protein that binds calcium and plays a role in signaling and protein expression. It is also found in the nucleus and believed to play a role in steeping press operator regulation. Somatic insertions or deletions in exon 9 of CALR gene are detected in 67% of JAK2/MPL negative essential thrombocythemia (ET) and 88% of JAK2/MPL negative primary myelofibrosis (PMF) patients. CALR mutations are not detected in polycythemia vera (PV) patients. CALR mutations appear to be mutually exclusive of JAK2 and MPL mutations. It has been reported that patients with mutated CALR have a lower risk of thrombosis and longer overall survival than patients with JAK2 mutation. Methodology = Total nucleic acid was extracted from patient`s plasma or PB/BM cells. Primer pairs were designed to encompass the JAK2 exons 12, 13, 14 and the V617F point mutation as well as CALR exon 9 and MPL exon 10, which includes W515 and S505 point mutations. The PCR products were then purified and sequenced in both forward and reverse directions. The JAK2 V617F utilizes a high sensitivity sequencing assay which can detect mutations at a 1% level. The remaining sequencing tests have a sensitivity of 10-15% for detecting mutations in the wild-type background. Fragment analysis is also performed for CALR. Fragment length analysis is performed to further determine very low levels of heterozygous insertions/deletions, which may be missed by sequencing. Fragment analysis has a sensitivity of 5% for detecting heterozygous insertion/deletions in the wild-type background. Various factors including quantity and quality of nucleic acid, sample preparation and sample age can affect assay performance. [facility] 04/30/2020 11:4 9 AM EDT Narrative [facility] - 05/15/2020 5:22 PM EDT Requesting Provider: Glendy Slaughter Dima Oquendo Specimen = [id number] us Carlita Blue MD PATHOLOGY ORDERABLES Final Resul t [facility] [address] [place] [address] documented in this encounter Visit Diagnoses Not on filedocumented [...] documented as of this encounter Care Teams Systems Project Manager Relationship Specialty Start Date End Date Júnior Lawrence DO [address] [place] [address] PCP - General Family Medicine 12/10/15 06/02/20 Sheila Rock MD [address] [place] [phone] PCP - General Family Medicine 06/03/20 04/06/22 Presley Blanco MD [address] [place] [address] PCP - General Internal Medicine 04/07/22 12/20/22 Wisam Grant MD [address] [place] [phone] PCP - General Family Medicine 12/21/22 07/03/23 Júnior Lawrence DO [address] [place] [id number] PCP - General Family Medicine 07/04/23 Jewel Armas MD Internal Medicine-Gastroentero logy 01/06/14 Ivan Lucia MD [address] [facility] [address] [place] [id number] Internal Medicine-Endocrinolog y, Diabetes & Metabolism 07/15/14 Eliezer Gan MD [address] [place] [address] [address] [place] [address] Physician Obstetrics & Gynecology 11/21/14 Thea Calderon, RN Technology Risk Intern Registered Nurse 01/07/20 05/24/20 Liz Galan, LYNN Technology Risk Intern Registered Nurse 05/28/20 05/24/21 Ángel Rose MD [address] [facility] [address] [place] [address] Consulting Physician Anesthesiology-Pain Medicine 07/29/20 Glendy Ch MD [address] [place] [address] [place] [address] Medical Oncologist Internal Medicine-Hematology and Oncology 01/11/21 Samantha Deleon, RN Technology Risk Intern Registered Nurse 11/08/21 12/08/21 Yumiko Arnett Case Abrading Machine Tender 06/17/22 06/19/22 Jai Olivo, BA, COS Case Abrading Machine Tender 07/15/22 08/14/22 Noy Chang, RN Technology Risk Intern Registered Nurse 12/21/22 07/04/23 Latrice Frye, [facility] Manager Distribution Center 01/05/23 05/04/23 Zoey Jimenez BA, COS Case Abrading Machine Tender 01/06/23 02/07/23 Jai Olivo, BA, COS Case Abrading Machine Tender 05/08/23 06/12/23 Zoey Jimenez BA, COS Case Abrading Machine Tender 08/14/23 01/14/24 Gabriela Solorzano, BS, COS Case Abrading Machine Tender 03/27/24 04/16/24 Yumiko Arnett Case Abrading Machine Tender 04/23/24 04/24/24 Erna Henning, [facility] Manager Distribution Center 04/25/24 10/02/24 Thea Calderon, RN Technology Risk Intern Registered Nurse 04/30/24 11/21/24 documented as of this encounter
--- OUTSIDE RECORDS SUMMARY | 2025-04-23 14:04 | XMS_ITS | Clinical Summary ---
Author Organization [facility] Address [address] [facility] [address] [place] [address] Phone Care Team Providers Care Java J2Ee Application Developer Name Role Phone Torey RICHMOND, Tann Unavailable Conditions or Problems No information available. Medications No information available. Medications Administered No information available. Allergies, Adverse Reactions, Alerts No information available. Results No information available. Plan of Care No information available. Procedures No information available. Vital Signs No information available. Immunizations No information available. Advance Directives No information available.
--- OUTSIDE RECORDS SUMMARY | 2025-04-23 14:04 | XMS_ITS | Encounter Summary ---
Author Organization [place] [address] Care Team Providers Care Access Specialist Name Role Phone Jewel Armas MD Unavailable [phone] Ivan Lucia MD Unavailable [phone] Eliezer Gan MD Unavailable [phone] Júnior Lawrence DO Primary Care Provider [phone] Thea Calderon RN Unavailable Unavail able Liz Galan RN Unavailable Unav ailable Sheila Rock MD Primary Care Provider [phone] Ángel Rose MD Unavailable [phone] Glendy Ch MD Unavailable [phone] Samantha Deleon RN Unavailable Unavaila Presley Sarabia MD Primary Care Provider [phone] Yumiko Arnett Unavailable Unavailable Jai Olivo BA, COS Unavailable UnavailWisam Rdz MD Primary Care Provider Noy Chang RN Unavailable Unavailable Latrice Frye POLYGRAPH TECHNICIAN Unavailable UnavaZoey Soares BA, COS Unavailable Unavailable Jai Olivo BA, COS Unavailable Unavailabl e Júnior Lawrence DO Primary Care Provider [phone] Zoey Jimenez BA, COS Unavailable Unavailable Gabriela Solorzano BS, COS Unavailable Unavail able Yumiko Arnett Unavailable Unavailable Erna Henning POLYGRAPH TECHNICIAN Unavailable Thea Chaparro RN Unavailable Unavail able Encounter Details Date Type Department Care Team (Late st Contact Info) Description 04/30/2020 Orders Only [facility] [place] [id number] Carlita Blue MD [address] [place] [phone] Social History Tobacco Use Types Packs/Day Years [...] Author No 11/07/2019 4:36 PM Carin Castillo THEEJeremy * Because of a physical, mental or emotional condition, does this person have difficulty doing errands alone such as visiting a doctor's office or shopping? Answer Date of Assessment Author No 11/07/2019 4:36 PM Carin Castillo RMJeremy documented as of this encounter Mental Status * Because of a physical, mental or emotional condition, does this person have serious difficulty concentrating, remembering or making decisions? Answer Entry Date Author No 11/07/2019 4:36 PM Carin Castillo RMA documented in this encounter Plan of [...] Procedure Name Priority Date/Time Associated Diagnosis Comments NEOGENOMICS BCR/ABL1/ASS1 T(9;22) Routine 04/30/2020 11:49 AM EDT documented in this encounter Results * NEOGENOMICS BCR/ABL1/ASS1 T(9;22) (04/30/2020 11:49 AM EDT) Pathologist [facility] Result Results = Normal BCR/ABL1/ASS1 t(9;22) (Result) = Not Detected BCR/ABL1/ASS1 t(9;22) (Probe Set Detail) = nuc corwin(ASS1,ABL1, BCR)x2[199] Nuclei Scored = 200 Billing Results (CPT Code: 54906) = Probe Set: BCR/ABL1/ASS1 t(9;22) Scoring Method: Computer Assisted Technology CPT Code: 76814 # of Units: 1 [facility] 04/30/2020 11:4 9 AM EDT Narrative [facility] - 05/08/2020 1:22 PM EDT Requesting Provider: Glendy Oquendo Specimen = [id number] Carlita Blue MD PATHOLOGY ORDERABLES Final Resul t [facility] [address] [place] [id number] documented in this encounter Visit Diagnoses Not [...] documented as of this encounter Care Teams Access Specialist Relationship Specialty Start Date End Date Júnior Lawrence DO [address] [place] [address] PCP - General Family Medicine 12/10/15 06/02/20 Sheila [place] [address] PCP - General Family Medicine 06/03/20 04/06/22 Presley Blanco MD [address] [facility] [place] [address] PCP - General Internal Medicine 04/07/22 12/20/22 Wisam Grant MD [address] [place] [address] PCP - General Family Medicine 12/21/22 07/03/23 Júnior Lawrence DO [address] [place] [address] PCP - General Family Medicine 07/04/23 Jewel Armas MD Internal Medicine-Gastroentero logy 01/06/14 Ivan Lucia MD [address] [facility] [address] [place] [address] Internal Medicine-Endocrinolog y, Diabetes & Metabolism 07/15/14 Eliezer Gan MD [address] [place] [address] Physician Obstetrics & Gynecology 11/21/14 Thea Calderon, RN Manager Energy Registered Nurse 01/07/20 05/24/20 Liz Galan, RN Manager Energy Registered Nurse 05/28/20 05/24/21 Ángel Rose MD [address] [facility] [address] [place] [address] Consulting Physician Anesthesiology-Pain Medicine 07/29/20 Glendy Ch MD [address] [facility] [address] [place] [address] Medical Oncologist Internal Medicine-Hematology and Oncology 01/11/21 Samantha Deleon, RN Manager Energy Registered Nurse 11/08/21 12/08/21 Yumiko Arnett Case Bee Keeper 06/17/22 06/19/22 Jai Olivo, BA, COS Case Bee Keeper 07/15/22 08/14/22 Noy Chang, RN Manager Energy Registered Nurse 12/21/22 07/04/23 Latrice Frye, POLYGRAPH TECHNICIAN Can [employer] 01/05/23 05/04/23 Zoey Jimenez BA, COS Case Bee Keeper 01/06/23 02/07/23 Jai Olivo, BA, COS Case Bee Keeper 05/08/23 06/12/23 Zoey Jimenez BA, COS Case Bee Keeper 08/14/23 01/14/24 Gabriela Solorzano, BS, COS Case Bee Keeper 03/27/24 04/16/24 Yumiko Arnett Case Bee Keeper 04/23/24 04/24/24 Erna Henning, POLYGRAPH TECHNICIAN Can Dryer 04/25/24 10/02/24 Thea Calderon, RN Manager Energy Registered Nurse 04/30/24 11/21/24 documented as of this encounter
--- OUTSIDE RECORDS SUMMARY | 2025-04-23 14:04 | XMS_ITS | Encounter Summary ---
Author Organization [place] [address] Care Team Providers Care Behavioral Health Associate Name Role Phone Jewel Armas MD Unavailable [phone] Ivan Lucia MD Unavailable [phone] Eliezer Gan MD Unavailable [phone] Júnior Lawrence DO Primary Care Provider [phone] Thea Calderon RN Unavailable Unavail able Liz Galan RN Unavailable Unav ailable Sheila Rock MD Primary Care Provider [phone] Ángel Rose MD Unavailable [phone] Glendy Ch MD Unavailable [phone] Samantha Deleon RN Unavailable Unavaila Presley Sarabia MD Primary Care Provider [phone] Yumiko Arnett Unavailable Unavailable Jai Olivo BA, COS Unavailable UnavailWisam Rdz MD Primary Care Provider Noy Chang RN Unavailable Unavailable Latrice Frye MANAGER GROUP HOME Unavailable UnavaZoey Soares BA, COS Unavailable Unavailable Jai Olivo BA, COS Unavailable Unavailabl e Júnior Lawrence DO Primary Care Provider [phone] Zoey Jimenez BA, COS Unavailable Unavailable Gabriela Solorzano BS, COS Unavailable Unavail able Yumiko Arnett Unavailable Unavailable Erna Henning MANAGER GROUP HOME Unavailable Thea Chaparro RN Unavailable Unavail able Encounter Details Date Type Department Care Team (Late st Contact Info) Description 04/30/2020 Orders Only [facility] [place] [id number] Carlita Blue MD [address] [place] [phone] Social History Tobacco Use Types Packs/Day Years [...] Name Priority Date/Time Associated Diagnosis Comments NEOGENOMICS EOSINOPHILIA Routine 04/30/2020 11:49 AM EDT documented in this encounter Results * NEOGENOMICS EOSINOPHILIA (04/30/2020 11:49 AM EDT) [employer] Result Results = Normal PDGFRa (4q12) (Result) = Not Detected PDGFRb (5q33) (Result) = Not Detected FGFR1 (8p11) (Result) = Not Detected CBFB (16q22) (Result) = Not Detected CBFB (16q22) (Probe Set Detail) = nuc corwin(CBFBx2)[19 8] PDGFRa (4q12) (Probe Set Detail) = nuc corwin(FIP1L1,CHI C2,PDGFRA)x2[2 00] PDGFRb (5q33) (Probe Set Detail) = nuc corwin(PDGFRBx2)[ 200] FGFR1 (8p11) (Probe Set Detail) = nuc corwin(EIXI9w1)[1 90] Nuclei Scored = 200 Billing Results (CPT Code: 28944) = Probe Set: PDGFRa (4q12), PDGFRb (5q33), FGFR1 (8p11), CBFB (16q22) Scoring Method: Computer Assisted Technology CPT Code: 65769 # of Units: 4 [facility] 04/30/2020 11:4 9 AM EDT Narrative [facility] - 05/22/2020 7:22 PM EDT Requesting Provider: Glendy Oquendo Specimen = [id number] Carlita Blue MD PATHOLOGY ORDERABLES Final Resul t [facility] [address] [place] [id number] documented in this encounter Visit Diagnoses Not [...] documented as of this encounter Care Teams Behavioral Health Associate Relationship Specialty Start Date End Date Howard, Júnior, DO [address] [place] [address] PCP - General Family Medicine 12/10/15 06/02/20 Sheila Rock MD [address] [place] [address] PCP - General Family Medicine 06/03/20 04/06/22 Presley Blanco MD [address] [place] [address] PCP - General Internal Medicine 04/07/22 12/20/22 Wisam Grant MD [address] [place] [address] PCP - General Family Medicine 12/21/22 07/03/23 Júnior Lawrence DO [address] [place] [address] PCP - General Family Medicine 07/04/23 Jewel Armas MD Internal Medicine-Gastroentero logy 01/06/14 Ivan Lucia MD [address] [facility] [address] [place] [address] Internal Medicine-Endocrinolog y, Diabetes & Metabolism 07/15/14 Eliezer Gan MD [address] [place] [address] Physician Obstetrics & Gynecology 11/21/14 Thea Calderon, RN Building Superintendent Registered Nurse 01/07/20 05/24/20 Liz Galan, RN Building Superintendent Registered Nurse 05/28/20 05/24/21 Ángel Rose MD [address] [facility] [address] [place] [address] Consulting Physician Anesthesiology-Pain Medicine 07/29/20 Glendy Ch MD [address] [facility] [address] [place] [address] Medical Oncologist Internal Medicine-Hematology and Oncology 01/11/21 Samantha Deleon, RN Building Superintendent Registered Nurse 11/08/21 12/08/21 Yumiko Arnett Case Assistant Merchandise Manager 06/17/22 06/19/22 Jai Olivo, BA, COS Case Assistant Merchandise Manager 07/15/22 08/14/22 Noy Chang, RN Building Superintendent Registered Nurse 12/21/22 07/04/23 Latrice Frye, MANAGER GROUP HOME Team Physician 01/05/23 05/04/23 Zoey Jimenez BA, COS Case Assistant Merchandise Manager 01/06/23 02/07/23 Jai Olivo, BA, COS Case Assistant Merchandise Manager 05/08/23 06/12/23 Zoey Jimenez BA, COS Case Assistant Merchandise Manager 08/14/23 01/14/24 Gabriela Solorzano, BS, COS Case Assistant Merchandise Manager 03/27/24 04/16/24 Yumiko Arnett Case Assistant Merchandise Manager 04/23/24 04/24/24 Erna Henning, MANAGER GROUP HOME Team Physician 04/25/24 10/02/24 Thea Calderon, RN Building Superintendent Registered Nurse 04/30/24 11/21/24 documented as of this encounter
--- OUTSIDE RECORDS SUMMARY | 2025-04-23 14:05 | XMS_ITS | Clinical Summary ---
Author Organization [facility] Address [address] [place] [address] Phone Care Team Providers Care Welder Production Line Arc Name Role Phone Jewel Armas MD Unavailable [phone] Ivan Lucia MD Unavailable [phone] Eliezer Gan MD Unavailable [phone] Ángel Rose MD Unavailable [phone] Glendy Ch MD Unavailable [phone] Júnior Lawrence DO Primary Care Provider [phone] Allergies Active Allergy Reactions Criticality Noted Date Comments Zolpidem Other (See Comments) High 11/26/2022 AV hallucinations Exenatide Nausea Only Low 11/11/2014 Codeine Itching Medium Empagliflozin Rash Medium 11/03/2021 GMI Medications * This document contains information received from the source organization and may not represent a complete record from that organization. Insulin [place], Disposable, (LEORA PEN NEEDLE) 32 gauge x 532 Misc NeedleIndicatio ns:Type 2 diabetes mellitus with peripheral neuropathy (HCC) USE TWICE DAILY WITH BASAGLAR 100 Each 3 Active latanoprost (XALATAN) 0.005 % Opht DropsIndication s:Raised intraocular pressure of both eyes PLACE 1 DROP INTO BOTH EYES NIGHTLY. 2.5 mL 4 Active BD ALCOHOL SWABS Top Pads, MedicatedIndica tions:Type 2 diabetes mellitus with peripheral neuropathy (HCC) Use to check blood glucose three times daily. Dx: E11.42. Per formulary 200 Each 3 4 Active atorvastatin (LIPITOR) 40 mg Oral TabletIndicatio ns:History of stroke,Dyslipid emia associated with type 2 diabetes mellitus (HCC) TAKE 1 TABLET BY MOUTH NIGHTLY. 90 Tablet 2 4 Active ketotifen (ZADITOR) 0.025 % (0.035 %) Opht Drops Place 1 Drop into both eyes 2 times daily. 5 mL 1 4 Active ketoconazole (NIZORAL) 2 % Top CreamIndication s:Intertrigo Apply topically 2 times daily. 30 g 4 Active FREESTYLE KATHERINE 3 PLUS SENSOR Mis DeviceIndicatio ns:Type 2 diabetes mellitus with peripheral neuropathy (HCC) 1 Each by Misc.(Non-Drug; Combo Route) route every 15 days. Follow package directions to apply sensor for continuous blood glucose monitoring. Change sensor every 15 days. 2 Each 3 5 Active FREESTYLE KATHERINE 3 READER [facility] Misc Subcutaneous (Inject under the skin) 1 Each once a week. Use as directed for continuous blood glucose monitoring. 1 Each 5 Active omeprazole (PRILOSEC) 20 mg Oral Capsule, Delayed Release(E.C.)In dications:Dysph agia, unspecified type TAKE 1 CAPSULE BY MOUTH TWICE DAILY 200 Capsule 5 Active polyethylene glycol (GLYCOLAX) 17 gram/dose Oral Powder Take 17 g by mouth daily. Active losartan (COZAAR) 25 mg Oral Tablet Take 1 Tablet by mouth daily. 90 Tablet 3 5 Active metoprolol succinate (TOPROL-XL) 25 mg Oral Tablet Sustained Release 24 hr Take 0.5 Tablets by mouth daily. 45 Tablet 3 5 Active spironolactone (ALDACTONE) 25 mg Oral Tablet Take 0.5 Tablets by mouth daily. 45 Tablet 3 5 Active insulin glargine U-100 (LANTUS) 100 unit/mL SubQ Solution Subcutaneous (Inject under the skin) 20 Units every evening. 5 Active insulin aspart U-100 (NOVOLOG) 100 unit/mL SubQ Solution Subcutaneous (Inject under the skin) 6 Units 3 times daily (with meals). 5 Active memantine (NAMENDA) 5 mg Oral Tablet Take 1 Tablet by mouth 2 times daily. 60 Tablet 5 Active aspirin 81 mg Oral Tablet, Delayed Release (E.C.) Take 1 Tablet by mouth daily (with breakfast). 5 Active apixaban (ELIQUIS) 5 mg Oral Tablet Take 1 Tablet by mouth 2 times daily. 60 Tablet 5 Active Active Problems Patient Care Coordination No te Formatting of this note migh t be different from the original. Utilization audit completed by Daja Salcedo RN on 04/10/2024. 05/04/23:[facility] HER MAIN [facility]ARM[facility] PT IS NOT INTERESTED IN CREAM RX'S FROM [facility]-02/16/21 ctsa bzo 06/24/15, 12/29/16 uds 11/14/2020 Dr. Rose /scanned [facility] 10/26/2022#[id number] Mammogram Needed 03/29/18 [facility] 02/01/2021#[id number],07/21/22([id number]),08/22/22([id number]),11/21/22([id number]) UDS- pt having Dr Rose fax over recent results Problem Noted Date Diagnosed Date HFrEF (heart failure with reduced ejection fract ion) 02/06/2025 ASHD (arteriosclerotic heart disease) 02/06/2025 Encephalopathy acute 02/05/2025 Acute CVA (cerebrovascular accident) 02/05/2025 Vascular dementia of acute o nset with behavioral disturbance 02/03/2025 Vaginitis 12/01/2024 Assessment & Plan (12/02/2024 8:36 AM EST): Obtain Vaginitis panel Add fluconazole Assessment & Plan (12/01/2024 11:37 AM EST): Obtain Vaginitis panel Add fluconazole Influenza A 11/28/2024 Assessment & Plan (12/02/2024 8:36 AM EST): Continue Tamiflu Supportive care Assessment & Plan (12/01/2024 9:14 AM EST): Continue Tamiflu Supportive care Assessment & Plan (11/30/2024 8:23 AM EST): Continue Tamiflu Supportive care Assessment & Plan (11/29/2024 12:09 PM EST): Continue Tamiflu Supportive care Assessment & Plan (11/28/2024 12:53 PM EST): Start Tamiflu Supportive care Abnormal computed tomography of cecum and termin al ileum 11/28/2024 Partial small bowel obstruction 11/27/2024 Assessment & Plan (12/02/2024 8:36 AM EST): Seen on CT abdomen and pelvis Repeat CT abdomen, persistent partial small bowel obstruction General surgery following, started on clear liquid diet Assessment & Plan (12/01/2024 11:37 AM EST): Seen on CT abdomen and pelvis Repeat CT abdomen, persistent partial small bowel obstruction General surgery following, started on clear liquid diet Assessment & Plan (11/30/2024 2:01 PM EST): Seen on CT abdomen and pelvis IV fluid Pending CT abdomen pelvis General surgery following Assessment & Plan (11/29/2024 12:09 PM EST): Seen on CT abdomen and pelvis IV fluid Pending KUB General surgery following Assessment & Plan (11/28/2024 12:53 PM EST): Seen on CT abdomen and pelvis IV fluid Patient. General surgery consulted, no surgical intervention at this time Arthralgia of upper arm 12/04/2023 Shoulder joint pain 12/04/2023 Carpal tunnel syndrome 12/04/2023 Cervical radiculopathy 12/04/2023 Cervical spondylosis without myelopathy 12/04/19 Displacement of cervical int ervertebral disc without myelopathy 12/04/2023 Lateral epicondylitis 12/04/2023 Leukemia 12/04/2023 Localized, primary osteoarthritis of shoulder re gion 12/04/2023 Lumbosacral spondylosis without myelopathy 12/04 Migraine 12/04/2023 Osteoarthritis of hip 12/04/2023 Right peroneal tendinosis 12/04/2023 Rotator cuff arthropathy of left shoulder 2023 Suprascapular entrapment neuropathy of left side 12/04/2023 AMS (altered mental status) 11/23/2023 Assessment & Plan (12/02/2024 8:36 AM EST): Reports visual hallucination Psych consulted Continue Zyprexa Assessment & Plan (12/01/2024 11:37 AM EST): Reports visual hallucination Psych consulted Continue Zyprexa Assessment & Plan (11/30/2024 8:23 AM EST): As needed Zyprexa Supportive care Assessment & Plan (11/29/2024 12:09 PM EST): As needed Zyprexa Supportive care Assessment & Plan (11/28/2024 12:53 PM EST): Likely has underlying dementia Continue Seroquel Visual hallucination 12/23/2022 Assessment & Plan (02/07/2023 10:42 AM EDT): Better on seroquel 50 Still present Will increase to 100 HS Assessment & Plan (01/16/2023 2:46 PM EDT): Still present Unimproved by history on Seroquel 50 mg at bedtime No side effects by history. Reviewed neurology note as well. Increased Seroquel to 100 mg at bedtime to hopefully help with her hallucinations. Assessment & Plan (12/23/2022 12:16 PM EST): Improving after 2 days of Seroquel Sleeping better as well. Hallucinations of seeing monsters at night while trying to sleep are still present but better. Recommend continuing current dose of Seroquel May need to increase in the future Plan follow-up in 5 days and as needed. Acute metabolic encephalopathy 11/23/2022 Chronic pain syndrome 11/23/2022 Acute cystitis 11/23/2022 Thrombocytopenia 11/23/2022 Assessment & Plan (02/07/2023 10:41 AM EDT): Currently doing well Colitis 10/21/2022 Altered mental status, unspe cified altered mental status type 10/20/2022 Esophageal dysphagia 07/07/2022 Overview (07/07/2022): Added automatically from request for surgery [id number] Sepsis 06/01/2022 Unexplained weight gain 05/25/2022 Overview (05/25/2022): Had been admitted in 10/2021 for [place] and found to have CXR compatable w/ CHF, vol overload and small/mod pleural effusions. Sprycel 50 daily was held at that time with no change in trajectory of wt gain Work up of note: Last 2D echo 11/06/2021 showed LVEF 60-65% calcification of Mitral valve leaftets,MV pressure 1/2 time 3cm2, , peak gradient 10mm Hg UA 05/10/2022 protein 1+ no blood S.alb 3.9, fT4 1.22 & TSH 2.610 T bili 1.8 normal transaminases (04/2022) Assessment & Plan (05/25/2022 11:18 AM EDT): Etiology unclear. No hypoalbuminemia & no proteinuria. Normal thyroid screen tests. Needs screened for REBECCA Diabetic polyneuropathy asso ciated with type 2 diabetes mellitus 09/09/2021 Assessment & Plan (12/02/2024 8:36 AM EST): Supportive care Assessment & Plan (12/01/2024 9:14 AM EST): Supportive care Assessment & Plan (11/30/2024 8:23 AM EST): Supportive care Assessment & Plan (11/29/2024 8:02 AM EST): Supportive care Assessment & Plan (11/28/2024 12:53 PM EST): Supportive care Age-related osteoporosis wit hout current pathological fracture 09/09/2021 Type 2 diabetes mellitus with peripheral neuropa thy 08/26/2021 Assessment & Plan (12/02/2024 8:36 AM EST): Sliding scale insulin Assessment & Plan (12/01/2024 11:37 AM EST): Sliding scale insulin Assessment & Plan (11/30/2024 2:01 PM EST): Sliding scale insulin Assessment & Plan (11/29/2024 8:02 AM EST): Sliding scale insulin Monitor for hypoglycemia Assessment & Plan (11/28/2024 12:53 PM EST): Sliding scale insulin Monitor for hypoglycemia Assessment & Plan (08/29/2024 1:12 PM EDT): Cont with glucose monitoring Orders: POCT GLYCATED HEMOGLOBIN, TOTAL refill katherine 3 sensors Assessment & Plan (08/26/2021 7:37 PM EDT): Goal A1C: < 7.0 - Last A1c - 7.6 - 08/26/2021 - not at goal Compliance: - compliant with diet and medications Retinopathy Screening: Retinopathy Not Present - Last Eye Exam - 09/13/2019 - patient reminded to follow up with eye technician annually Nephropathy Assessment: - microalbumin screening completed in the past 12 months Foot Assessment: Last Foot Exam Date - 08/26/2021 - a foot assessment was performed as part of today's visit Diet Advice: - discussed improving diet by reducing carbohydrates at today's visit ASA Therapy: - patient currently on aspirin Statin Therapy: - currently on a statin Medication Management: - medication management decisions took place at today's visit (see orders) Pain not at goal. Will increase lyrica dosing Contact office if any adverse side effects Cyst near tailbone 03/25/2021 CKD (chronic kidney disease) stage 2, GFR 60-89 ml/min 04/22/2020 Overview (04/26/2020): S.cr was 1.11 (04/15/2020) Last intravenous contrast exposure was in 11/[address] scan of abd & pelvis which showed that the abdominal aorta was normal in caliber without dissection or acute vascular injury. Moderate calcified and noncalcified plaque. All major branch vessels were patent without flow-limiting stenosis there was an accessory right renal artery. Kidneys were noted as enhancing symmetrically without obstruction. Scattered areas of scarring bilaterally with cysts. Contrast within the collecting system. Bladder was grossly normal. Assessment & Plan (12/02/2024 8:36 AM EST): Stable, follow BMP Assessment & Plan (12/01/2024 11:37 AM EST): Stable, follow BMP Assessment & Plan (11/30/2024 2:01 PM EST): Stable, follow BMP Assessment & Plan (11/29/2024 12:09 PM EST): Renal function at baseline Follow BMP Assessment & Plan (11/28/2024 12:53 PM EST): Gentle IV fluid Follow BMP Avoid nephrotoxic agent Assessment & Plan (05/25/2022 11:19 AM EDT): Latest renal function was BUN/S.cr of 11/1.05 (05/18/22) No new work up needed Assessment & Plan (06/17/2020 9:49 PM EDT): Not all tests ordered since initial visit were done Last labs from 04/30/2020 showed K/CO2/BUN/S.cr of 3.9/25/14/1.01 with CBC of 6.1/13.9/187. No new orders indicated. Assessment & Plan (04/22/2020 11:53 AM EDT): UA today with protein & cristobal ase positive. Shall initiate work up to distinguish between pre renal causes & intrinsic renal disease as well as rule out obstructive uropathy. Left arm weakness 05/07/2019 Other chest pain 12/28/2018 Thyroid nodule 04/18/2017 Overview (04/18/2017): Benign thyroid thyroid nodules, pln for fu US ~ March 2018 Encounter for long-term (current) drug use 01/28 CML (chronic myeloid leukemia) in relapse 2015 Overview (05/25/2022): Had been on Sprycel, started 08/21/18 initially 70 daily then down to 50 daily as of 11/2019. Held since 10/2021 due to weight gain Assessment & Plan (01/30/2025 10:21 AM EDT): - managed by Oncology Assessment & Plan (05/25/2022 11:21 AM EDT): Defer to Dr. Glendy Ch MD Hematology and Medical Oncology Assessment & Plan (06/17/2020 11:54 AM EDT): Continues to be followed by Glendy Haile MD & Dulce Ron APRN with Hematology and Oncology Assessment & Plan (04/22/2020 11:56 AM EDT): Followed by Glendy Haile MD & Dulce Ron APRN with Hematology and Oncology Last CBC was 6.9/14/194 (04/15/2020) Maintenance chemotherapy 09/14/2015 Vitamin D deficiency 07/18/2014 Overview (07/18/2014): Followed by Endocrinology. Dyslipidemia associated with type 2 diabetes nathaniel litus 07/15/2014 Overview (07/15/2014): Followed by Endocrinology. Family history of premature CAD 07/15/2014 Encounter for long-term opiate analgesic use Degeneration of intervertebral disc, site unspec ified Irritable bowel syndrome Acute ischemic multifocal mu ltiple vascular territories stroke Dysarthria Hyperlipidemia LDL goal <70 Assessment & Plan (12/02/2024 8:36 AM EST): MOVING CONSULTANT statin Assessment & Plan (12/01/2024 9:14 AM EST): MOVING CONSULTANT statin Assessment & Plan (11/30/2024 2:01 PM EST): MOVING CONSULTANT statin Assessment & Plan (11/29/2024 8:02 AM EST): MOVING CONSULTANT statin Assessment & Plan (11/28/2024 12:53 PM EST): MOVING CONSULTANT statin Chronic kidney disease Diabetes mellitus Hyperlipidemia Abnormal LFTs Demand ischemia History of stroke Overview (02/07/2023): Neurology has recommended Eliquis for concern of embolic CVA Assessment & Plan (12/02/2024 8:36 AM EST): Continue aspirin, Lipitor Assessment & Plan (12/01/2024 9:14 AM EST): Continue aspirin, Lipitor Assessment & Plan (11/30/2024 8:23 AM EST): Continue aspirin, Lipitor Assessment & Plan (11/29/2024 8:02 AM EST): Continue aspirin, Lipitor Assessment & Plan (11/28/2024 12:53 PM EST): Continue aspirin, Lipitor Assessment & Plan (02/07/2023 10:40 AM EDT): No further CVA No bleeding or problems COVID-19 Essential hypertension Assessment & Plan (12/02/2024 8:36 AM EST): Stable Assessment & Plan (12/01/2024 11:37 AM EST): Stable Assessment & Plan (11/30/2024 8:23 AM EST): Stable Assessment & Plan (11/29/2024 12:09 PM EST): Stable Assessment & Plan (11/28/2024 12:53 PM EST): Stable, resume MOVING CONSULTANT lisinopril Delirium Resolved Problems Problem Noted Date Diagnosed Date Resolved Date Acute psychosis 02/03/2025 02/06/2025 Moderate protein-calorie malnutrition 11/25/2022 11/16/2023 Assessment & Plan (02/07/2023 10:41 AM EDT): Doing well currently Eating well by hx Acute CVA (cerebrovascular accident) 10/20/2022 05/04/2023 Acute intractable headache, unspecified headache type 08/18/2022 08/19/2022 CVA (cerebrovascular accident) 06/02/2022 05/04/2023 Cerebrovascular accident (CVA) 06/01/2022 05/04/2023 Acute pulmonary edema 11/05/20212021 Pulmonary edema, acute 11/05/202102/07 Racing heart beat 12/28/2018 07/29/2020 SOB (shortness of breath) 12/28/2018 Myalgia 12/14/2015 08/03/2017 Elevated LFTs 07/25/2014 07/29/2020 Overview (07/25/2014): multifactorial Uncontrolled type 2 diabetes mellitus with hyperglycemia 03/05/2014 07/29/2020 Overview (04/22/2020): glipiZIDE (GLUCOTROL) 10 mg Oral Tablet 2 TIMES DAILY FAINA JEFF U-100 INSULIN 100 unit/mL (3 mL) SubQ Insulin Pen SUBCUTANEOUS (INJECT UNDER THE SKIN) 34 UNITS 2 TIMES DAILY. Assessment & Plan (06/17/2020 11:53 AM EDT): unchanged with latest HbA1c being 9.2% (04/2020) compared to 7.7% & random urine microalbumin was 100 mg/dL (11/2019) Managed by Sheila Hodge MD Assessment & Plan (04/22/2020 12:00 PM EDT): Used to be followed by Endocrinology not anymore. Last HbA1c was 7.7% & random urine microalbumin was 100 mg/dL (11/2019) DM (diabetes mellitus) 08/11/201203/05 Headache 08/03/2017 Lumbago 08/03/2017 Acute left hemiparesis 06/10 Facial droop due to acute ce rebrovascular accident (CVA) 06/01/2022 Diabetic peripheral neuropathy 08/26/2021 Encounters Date Type Department Care Team Description 02/04/2025 Patient Outreach [facility] [phone] [place] [address] Latrice Frye LSW Other; Care Management - Chart Review 02/01/2025 9:30 PM EDT - 02/07/2025 7:48 PM EDT Hospital Encounter [place] [address] Chapo Freitas MD Curi, Kristo, MD HFrEF (heart failure with reduced ejection fraction) (HCC) (Primary Dx); 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 (HCC) Discharge Disposition: Group Home Facility 02/01/2025 3:20 PM EDT - 02/01/2025 8:41 PM EDT Emergency [facility] [address] [place] [address] Kosta Colon MD Patel, Jigar D, MD Altered mental status, unspecified altered mental status type (Primary Dx) Discharge Disposition: Short Term Hospital 02/01/2025 Travel 01/30/2025 9:30 AM EDT Office Visit [facility] [address] [place] [address] Júnior Lawrence DO Dysuria (Primary Dx); CML (chronic myeloid leukemia) in relapse (HCC); OAB (overactive bladder); History of CVA (cerebrovascular accident) 01/30/2025 Patient Outreach [facility] Care Managment [address] Appointment [place] [address] Sarah Beth Tirado, msws from Last 3 Months Immunizations Immunization Administration Dates Next Due Influenza Intradermal 01/15/2020, 020,10/09/2018,11/16 Influenza Patient Reported 08/01/2013 Influenza Vaccine Quadrivalent 07/13/2018,2016,10/12/2015 Influenza Vaccine Quadrivalent PF 07/29/2020 Influenza Vaccine, Unspecifi ed Formulation 09/04/2012,08/16/2011 Influenza Virus Vaccine Quad rivalant, Flublok 08/22/2019 Magy SARS-CoV-2 Vaccine 06/11/2021 Measles 09/04/1967 Pneumococcal Conjugate Vacci ne 13 Valent 02/04/2019 Pneumococcal Polysaccharide 23 Valent 05/09/2016 Rubella 02/04/1970 Tdap 02/11/2024 Zoster Recombinant 02/07/2019 Surgical History Surgery Date Site/Laterality Comments CHOLECYSTECTOMY COLONOSCOPY HYSTERECTOMY pt has left ovary UPPER GASTROINTESTINAL ENDOSCOPY 07/31/2014 N/A ESOPHAGOGASTRODUODENOSCOP Y with biopsy/ COLONOSCOPY; Surgeon: Jewel Armas MD; Location: [facility]; Service: Endoscopy COLONOSCOPY 07/31/2014 N/A Surgeon: Jewel Armas MD; Location: [facility]; Service: Endoscopy Medical History Medical History Date Comments Allergy Diabetes mellitus (HCC) Hyperlipidemia Cancer (HCC) leukemia Thyroid nodule 04/18/2017 Acute ischemic stroke (HCC) Chronic kidney disease Age-related osteoporosis without current patholo gical fracture 09/09/2021 Essential hypertension Family History Medical History Relation Name Comments No Known Problems Brother 1 No Known Problems Brother 2 No Known Problems Brother 3 No Known Problems Brother 4 No Known Problems Brother 5 No Known Problems Brother 6 Other Father car accident No Known Problems Maternal Grandfather No Known Problems Maternal Grandmother No Known Problems Mother Cancer Other cousin Colon Cancer Other cousin Stomach Cancer Other cousin No Known Problems Paternal Grandfather No Known Problems Paternal Grandmother No Known Problems Sister 1 High Cholesterol Sister 2 High Cholesterol Sister 3 Diabetes Sister 4 Heart Disease Sister 4 Kidney Disease Sister 4 No Known Problems Sister 5 Allergies Neg Hx Bleeding Prob Neg Hx Hearing Loss Neg Hx Migraines Neg Hx Thyroid Disease Neg Hx Relation Name Status Comments Brother 1 Alive Brother 2 Alive Brother 3 Alive Brother 4 Alive Brother 5 Alive Brother 6 Alive Father Maternal Grandfather Maternal Grandmother Mother Other cousin Alive Paternal Grandfather Paternal Grandmother Sister 1 Alive Sister 2 Alive Sister 3 Alive Sister 4 Sister 5 Social History Tobacco Use Types Packs/Day Years Used Date Smoking Tobacco: Never Smokeless Tobacco: Never Tobacco Cessation:Counseling Given: Not Answered Alcohol Use Standard Drinks/Week Comments No 0 (1 standard drink = 0.6 oz pur e alcohol) B1300 Health Literacy Answer Date Recor ded How often do you need to hav e someone help you when you read instructions, pamphlets, or other written material from your doctor or pharmacy? Sometimes 04/25/2024 [facility] Utilities Answer Date Recorded In the past 12 months has e electric, gas, oil, or water company threatened to shut off services in your home? Patient unable to answer 02/03/2025 Overall Financial Resource Strain (CARDIA) Answe r Date Recorded How hard is it for you to pa y for the very basics like food, housing, medical care, and heating? Patient unable to answer 02/03/2025 PHQ-2 Answer Date Recorded PHQ-2 Total Score 0 02/03/2025 [facility] - Occupational Stress [...] place to sleep or slept in a usp (including now)? No 08/14/2023 Housing Stability Vital Sign Answer Carlos e Recorded In the last 12 months, was t here a time when you were not able to pay the mortgage or rent on time? No 04/25/2024 In the past 12 months, how m any times have you moved where you were living? 0 04/25/2024 At any time in the past 12 m [facility], were you homeless or living in a usp (including now)? No 04/25/2024 [facility] IP Transportation Answer D ate Recorded In [...] on file Sexual Orientation Not on file Obstetrics History Para Term AB IAB SAB Ectopic Multiple Livin g Live Births 4 4 4 4 4 Date Outcome GA Total Labor Labor/2nd/3rd Weight Sex Type Anes PTL Marisol A1 A5 Name Clin 1974 Term M Vag-S pont None N Living 1977 Term M Vag-S pont None N Living 1979 Term M Vag-S pont None N Living 1981 Term M Vag-S pont None N Living Last Filed Vital Signs Vital Sign Reading Time Taken Comments Blood Pressure 116/57 02/07/2025 4:05 PM EDT Pulse 74 02/07/2025 4:11 PM EDT Temperature 36.6 C (97.8 F) 02/07/2025 4:05 PM EDT Respiratory Rate 18 02/07/2025 4:05 PM EDT Oxygen Saturation 95% 02/07/2025 4:05 PM EDT Inhaled Oxygen Concentration - - Weight 49.7 kg (109 lb 9.1 oz) 02/07/2025 6:49 A M EDT Height 157.5 cm (5' 2 ) 02/01/2025 9:33 PM EDT Body Mass Index 20.04 02/01/2025 9:33 PM EDT Plan of Treatment Health Maintenance Due Date Last Done Comments Cologuard 2001 FIT 2001 Sigmoidoscopy 2001 Virtual Colonography 2001 RSV or 60+ (1 - Risk 60-74 years 1-dose series) 2016 Zoster (2 of 2) 04/04/2019 02/07/2019 Pneumococcal Vaccine 50+ (3 of 3 - PCV20 or PCV21) 05/09/2021 02/04/2019, 05/09/2016 COVID-19 Vaccine (#1) 07/09/2021 Breast Cancer Screening 09/01/2023 09/01/20 21, 08/22/2020, 03/29/2017, Additional history exists Wellness Exam Medicare 12/04/2024 12/04/2023 Kidney Health: uACR 05/07/2025 05/07/2024, 04/04/2022, 07/18/2017, Additional history exists Influenza Vaccine (Season Ended) 2025 07/29/2020, 01/15/2020, 12/17/2019, Additional history exists Hemoglobin A1c 08/04/2025 02/02/2025, 08/01, 04/30/2024, Additional history exists Lipids 02/02/2026 02/02/2025, 02/2024, 05/03/2023, Additional history exists Kidney Health: eGFR 02/07/2026 02/07/2025, 02/06/2025, 02/04/2025, Additional history exists Diabetic Eye Exam 08/20/2026 08/20/2024, , 04/09/2022 DTaP/TDaP/Td (2 - Td or Tdap) 02/10/2034 02/11/2024 Colon Cancer Screening 09/09/2034 Colonoscopy 09/09/2034 09/11/2024, 11/2013, 04/10/2001 Bone Density Screening Completed 03/05/2018 Hepatitis C Screening Completed 06/01/2022 , 09/13/2016, 01/06/2014 Hepatitis B Vaccine Aged Out No longe r eligible based on patient's age to complete this topic Meningococcal B Vaccine Aged Out No l onger eligible based on patient's age to complete this topic Goals Goal Patient Goal Type Associated Problems [...] 11:23 AM EDT) No Blanca Oden RMA Procedures Procedure Name Priority Date/Time Associated Diagnosis Comments GLUCOSE METER POC Routine 02/07/2025 6:37 PM EDT URINALYSIS REFLEX Routine 02/07/2025 2:07 PM EDT UA W/REFLEX TO CULTURE Routine 02/07/2025 2:07 PM EDT URINE CULTURE (NO STAIN) Routine 02/07/2025 2:07 PM EDT EXTRA HUNG URINE CX Routine 02/07/2025 2:07 PM EDT GLUCOSE METER POC Routine 02/07/2025 12:25 PM EDT POTASSIUM REPEAT Routine 02/07/2025 12:14 PM EDT BASIC METABOLIC PANEL Early AM 02/07/2025 9:54 AM EDT GLUCOSE METER POC Routine 02/07/2025 8:53 AM EDT ECG AND WAVEFORMS - TELEMETRY Routine 02/07/2025 7:58 AM EDT GLUCOSE METER POC Routine 02/06/2025 10:33 PM EDT ECG AND WAVEFORMS - TELEMETRY Routine 02/06/2025 7:43 PM EDT GLUCOSE METER POC Routine 02/06/2025 6:10 PM EDT GLUCOSE METER POC Routine 02/06/2025 2:[address] ANGIOGRAM CORONARY W CONTRAST СЕРГЕЙ 02/06/2025 1:53 PM EDT BASIC METABOLIC PANEL STAT 02/06/2025 10:01 AM EDT NT PROBNP STAT 02/06/2025 10:01 AM EDT CBC Early AM 02/06/2025 10:01 AM EDT GLUCOSE METER POC Routine 02/06/2025 9:19 AM EDT IP CONSULT TO CARDIOLOGY Routine 02/06/2025 8:29 AM EDT Procedure Note - Andrew Soto MD - 02/06/2025 8:53 AM EDTThis note is in progress. Heart & Vascular Consult Note PATIENT: Fatoumata Bailey 6 PCP: Júnior Lawrence DO [employer] Casework Specialist: Dr. Emmanuel I would like to thank Zoraida Esteban MD for requesting me to see Fatoumata Vivar for cardiac consultation for reduced EF/ischemic eval. History provided by: EMR, patient HPI: Fatoumata Bailey is a 69 y.o. female with PMHx CVA (2021), hallucinations,CKD, HTN, T2DM, HLD, CML who presented to the ED for evaluation ofconfusion. Per ED note It is not clear when she was last seen at hercurrent baseline. According the family movement a couple of days ago. Itis not clear that her baseline is of a high functional level since herstroke. She evidently still is able to walk around her house on her ownand cook for herself when she is at her baseline. Head CT did not showacute intracranial abnormality. Brain MRI showed areas for restricteddiffusion consistent with acute ischemia. Carotid US showed mild stenosisbilaterally. Further workup revealed an UTI and lactic acidosis.Cardiology consulted for reduced EF to 45% and ischemic evaluation. Patient is oriented to self, but according to nursing staff, she is stillconfused. Patient denies cardiac history. Denies chest pain, shortness ofbreath, dizziness/lightheadedness, or palpitations. Echocardiogram (02/05/2025) IMPRESSION Conclusions * Technically difficult study due to poor patient cooperation. * Patient ended exam prematurely due to sensitivity to probe pressure. * Left ventricular systolic function is mildly reduced with anestimated ejection fraction of grossly 45%. Segmental wall motion evaluation islimited but there is likely hypokinesis of the inferoseptal wall, inferior walland inferolateral wall. * There is no increased left ventricular wall thickness. * Left ventricular chamber dimension is normal. * Left atrium is grossly normal. * Right atrial chamber dimension is normal. * Right ventricular chamber dimension is normal. * Right ventricular systolic function is normal. * There is mild mitral valve stenosis with a peak velocity of 188 cm/sand a mean gradient of 5 mmHg Stress (12/2018) IMPRESSION IMPRESSIONS Stress and rest perfusion images are normal. No evidence of myocardial ischemia or prior myocardial infarction. Normal left ventricular wall motion and contractility. Nondiagnostic ekg with Lexiscan protocol EKG (01/2025) SINUS RHYTHM WITH FIRST DEGREE AV BLOCK INFERIOR MYOCARDIAL INFARCTION, OF INDETERMINATE AGE WITH POSTERIOREXTENSION Family History Family History Problem Relation Age of Onset Other Father car accident No Known Problems Sister No Known Problems Mother Colon Cancer Other Stomach Cancer Other Cancer Other High Cholesterol Sister High Cholesterol Sister No Known Problems Brother No Known Problems Maternal Grandmother No Known Problems Maternal Grandfather No Known Problems Paternal Grandmother No Known Problems Paternal Grandfather Diabetes Sister Heart Disease Sister Kidney Disease Sister No Known Problems Sister No Known Problems Brother No Known Problems Brother No Known Problems Brother No Known Problems Brother No Known Problems Brother Hearing Loss Neg Hx Allergies Neg Hx Migraines Neg Hx Thyroid Disease Neg Hx Bleeding Prob Neg Hx Social History Social History Tobacco Use Smoking status: Never Smokeless tobacco: Never Substance Use Topics Alcohol use: No ROS: Denies: Constitutional: fever, chills, weight loss ENT: headaches, LOC, runny nose Cardiovascular: chest pain, edema, palpitations, orthopnea, dyspnea, orsyncope Pulmonary: cough, sputum production, wheezing and hemoptysis. Gastrointestinal: abdominal pain, nausea, vomiting, constipation,diarrhea, hematochezia and melena. Genitourinary: change in bladder habits, burning and hematuria. Integumentary: rash Endocrine:Intolerance to heat or cold, frequent urination/thirst Hematologic/Lymphatic: abnormal bruising Allergic/Immunologic: hives Past Medical History Past Medical History: Diagnosis Date Acute ischemic stroke (HCC) Age-related osteoporosis without current pathological fracture 09/09/2021 Allergy Cancer (HCC) leukemia Chronic kidney disease Diabetes mellitus (HCC) Essential hypertension Hyperlipidemia Thyroid nodule 04/18/2017 MOVING CONSULTANT Medications: Prior to Admission medications Medication Sig Start Date End Date Taking? Authorizing Provider aspirin 81 mg Oral Tablet, Delayed Release (E.C.) TAKE 1 TABLET BY MOUTHONCE DAILY WITH BREAKFAST 03/08/23 Wisam Grant MD atorvastatin (LIPITOR) 40 mg Oral Tablet TAKE 1 TABLET BY MOUTH NIGHTLY.12/27/23 Wisam Grant MD BD ALCOHOL SWABS Top Pads, Medicated Use to check blood glucose threetimes daily. Dx: E11.42. Per formulary 11/28/23 Júnior Lawrence, DO DIETARY SUPPLEMENT ORAL Take 1 Capsule by mouth daily. [employer] overthe counter supplement Patient not taking: Reported on 10/08/2024 Provider, Historical FREESTYLE KATHERINE 3 PLUS SENSOR Mis Device 1 Each by [facility] [place].(Non-Drug; ComboRoute) route every 15 days. Follow package directions to apply sensor forcontinuous blood glucose monitoring. Change sensor every 15 days. 11/07/24Júnior Lawrence, DO FREESTYLE KATHERINE 3 READER [facility] Subcutaneous (Inject under the skin) 1Each once a week. Use as directed for continuous blood glucose monitoring.11/07/24 Júnior Lawrence DO glimepiride (AMARYL) 4 mg Oral Tablet Take 1 Tablet by mouth 2 timesdaily. 07/26/24 Raine Joseph MD glycerin Rect Suppository Place 1 Suppository rectally daily as needed. Patient not taking: Reported on 01/30/2025 09/04/24 Juventino Villarreal APRN insulin glargine (LANTUS SOLOSTAR U-100 INSULIN) 100 unit/mL (3 mL) SubQInsulin Pen INJECT 35 UNITS SUBCUTANEOUSLY TWICE DAILY 11/07/24 Júnior Lawrence DO Insulin [place], Disposable, (LEORA PEN NEEDLE) 32 gauge x MiscNeedle USE TWICE DAILY WITH BASAGLAR 07/11/23 Júnior Lawrence DO ketoconazole (NIZORAL) 2 % Top Cream Apply topically 2 times daily. Patient not taking: Reported on 01/30/2025 05/10/24 Júnior Lawrence DO ketotifen (ZADITOR) 0.025 % (0.035 %) Opht Drops Place 1 Drop into botheyes 2 times daily. 03/28/24 Júnior Lawrence DO latanoprost (XALATAN) 0.005 % Opht Drops PLACE 1 DROP INTO BOTH EYESNIGHTLY. 11/28/23 Júnior Lawrence DO lisinopriL (PRINIVIL;ZESTRIL) 10 mg Oral Tablet Take 1 Tablet by mouthdaily. 04/30/24 Júnior Lawrence DO methocarbamoL (ROBAXIN) 500 mg Oral Tablet TAKE 1 TABLET BY MOUTH 4 TIMESDAILY NEEDED FOR MUSCLE SPASMS. 05/30/24 Júnior Lawrence DO mirabegron (MYRBETRIQ) 25 mg Oral Tablet Sustained Release 24 hr Take 1Tablet by mouth daily. 01/30/25 Júnior Lawrence DO OLANZapine (ZYPREXA) 7.5 mg Oral Tablet 11/27/24 Provider, Historical omeprazole (PRILOSEC) 20 mg Oral Capsule, Delayed Release(E.C.) TAKE 1CAPSULE BY MOUTH TWICE DAILY 12/05/24 Júnior Lawrence DO polyethylene glycol (GLYCOLAX) 17 gram/dose Oral Powder Take 17 g by mouthdaily. Provider, Historical QUEtiapine (SEROQUEL) 50 mg Oral Tablet TAKE 1 TABLET BY MOUTH TWICE DAILY12/05/24 Júnior Lawrence DO sulfamethoxazole-trimethoprim (BACTRIM DS) 800-160 mg Oral Tablet Take 1Tablet by mouth every 12 hours for 10 days. 01/30/25 02/09/25 Júnior Lawrence DO Inpatient Medications: aspirin 81 mg Oral Daily WM atorvastatin 40 mg Oral Nightly enoxaparin 30 mg Subcutaneous Daily - LMWH/Xa ENSURE Original 1.05 1 Bottle Oral BID with Meals insulin aspart U-100 1-15 Units Subcutaneous QID WM memantine 5 mg Oral BID metoprolol succinate 12.5 mg Oral Daily Past Surgical History Past Surgical History: Procedure Laterality Date CHOLECYSTECTOMY COLONOSCOPY COLONOSCOPY N/A 07/31/2014 Surgeon: Jewel Armas MD; Location: [facility]; Service:Endoscopy HYSTERECTOMY pt has left ovary UPPER GASTROINTESTINAL ENDOSCOPY N/A 07/31/2014 ESOPHAGOGASTRODUODENOSCOPY with biopsy/ COLONOSCOPY; Surgeon: Jewel Armas MD; Location: [facility]; Service: Endoscopy Allergy Allergies Allergen Reactions Ambien [Zolpidem] Other (See Comments) AV hallucinations Codeine Itching Jardiance [Empagliflozin] Rash GMI Byetta [Exenatide] Nausea Only Patient Active Problem List Diagnosis Degeneration of intervertebral disc, site unspecified Irritable bowel syndrome Encounter for long-term opiate analgesic use Dyslipidemia associated with type 2 diabetes mellitus (HCC) Family history of premature CAD Vitamin D deficiency Maintenance chemotherapy CML (chronic myeloid leukemia) in relapse (HCC) Encounter for long-term (current) drug use Thyroid nodule Other chest pain Left arm weakness Acute ischemic multifocal multiple vascular territories stroke (HCC) Dysarthria Hyperlipidemia LDL goal <70 CKD (chronic kidney disease) stage 2, GFR 60-89 ml/min Cyst near tailbone Type 2 diabetes mellitus with peripheral neuropathy (HCC) Diabetic polyneuropathy associated with type 2 diabetes mellitus (HCC) Age-related osteoporosis without current pathological fracture Unexplained weight gain Sepsis (HCC) Chronic kidney disease Diabetes mellitus (HCC) Hyperlipidemia Abnormal LFTs Demand ischemia (HCC) Esophageal dysphagia Altered mental status, unspecified altered mental status type Colitis History of stroke COVID-19 Essential hypertension Acute metabolic encephalopathy Chronic pain syndrome Acute cystitis Thrombocytopenia Delirium Visual hallucination AMS (altered mental status) Arthralgia of upper arm Shoulder joint pain Carpal tunnel syndrome Cervical radiculopathy Cervical spondylosis without myelopathy Displacement of cervical intervertebral disc without myelopathy Lateral epicondylitis Leukemia (HCC) Localized, primary osteoarthritis of shoulder region Lumbosacral spondylosis without myelopathy Migraine Osteoarthritis of hip Right peroneal tendinosis Rotator cuff arthropathy of left shoulder Suprascapular entrapment neuropathy of left side Partial small bowel obstruction (HCC) Influenza A Abnormal computed tomography of cecum and terminal ileum Vaginitis Acute psychosis (HCC) 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 (HCC) Encephalopathy acute Acute CVA (cerebrovascular accident) ([facility]) BP 135/64 (BP Location: Right arm, Patient Position: Semi Fowlers) Pulse 78 Temp 97.5 F (36.4 C) (Axillary) Resp 16 Ht 5' 2 (1.575 m) Wt 109 lb 9.1 oz (49.7 kg) LMP (LMP Unknown) SpO2 95% BMI 20.04 kg/m I/O 24 hours: Intake/Output Summary (Last 24 hours) at 02/06/2025 0853 Last data filed at 02/05/2025 1904 Gross per 24 hour Intake 237 ml Output -- Net 237 ml Diagnostic tests The most recent cardiovascular imaging studies [facility] EMR werereviewed at time of consultation Exam: Pt lying in bed in no distress. Head: Atraumatic, normocephalic. Neck: no JVD , supple Heart: S1, S2 RRR , no M/R/G, chest wall nontender Lung: clear bilaterally Abd: soft, nontender Ext: no edema, +2 DP/Radial pulses Neuro: Alert and oriented x 3 Mood and affect: appropriate Skin: warm and dry Telemetry: NSR Assessment Acute HFmrEF - ECHO (07/2022): EF 55% - ECHO (02/05/2025): EF 45%, + WMA, mild MV stenosis with peak velocity of188 cm/s and mean gradient of 5mmHg - Compensated on exam - GDMT MOVING CONSULTANT: YOHANA - Would not recommend SGLT2 due to recent UTI - This admission: Torprol XL 12.5mg Acute CVA Altered Mental Status Vascular Dementia - hx of CVA (2021) - Brain MRI (02/05/2025): Multifocal areas of restricted diffusionconsistent with acute ischemia.Largest area is in the posterior righttemporal lobe. Multifocal areas of encephalomalacia from previousinfarcts. - previously on Eliquis - per neurology note She was on Eliquis in themtst but it was last picked up 04/2023. Unclear why it was discontinued andgiven the new embolic strokes - neuro recommended restart DOAC 7 days from stroke onset - MOVING CONSULTANT: bASA + statin - per neurology / primary UTI - per primary GEORGIE, resolved - sCr 1.43 (02/01), 0.76 (02/04) - YOHANA held HTN, controlled - MOVING CONSULTANT: Lisinopril 10mg - This admit: BB T2DM, uncontrolled - HgbA1c 10.9 - per primary HLD - LDL 125 (02/02/2025) - MOVING CONSULTANT: Lipitor 40mg CML - per primary Plan: - Start Losartan 25mg for GDMT - Check pro-BNP and BMP today - ECHO reviewed with rounding grain elevator motor starter - unable to see if embolipresent on imaging - CCTA to evaluate for embolus and coronaries for potential ischemiccauses - BMP in the AM - Defer ischemic evaluation timing to rounding grain elevator motor starter pending CCTAimages Further input from Dr. Charles Mcneil APRN, Heart and Vascular [place] 02/06/25 Disposition Perspective - Medically Ready for Discharge: No Anticipated Discharge: > 3 days Discharge when / if: improvement in clinical status ATTENDING PHYSICIAN NOTE/ATTESTATION: I have seen and evaluated the patient. I have reviewed other providernotes as well as the patient's past and present medical problems,medications, allergies, family history, social history, laboratory andradiology studies. I have personally taken a detailed history andperformed a detailed physical examination of this patient. My findings arebelow and may differ slightly from the assessment and plan of the advancedpractitionerDemi APRN. BP 131/56 (BP Location: Left arm) Pulse 70 Temp 98.5 F (36.9 C)(Oral) Resp 18 Ht 5' 2 (1.575 m) Wt 109 lb 9.1 oz (49.7 kg) LMP (LMP Unknown) SpO2 96% BMI 20.04 kg/m chronically ill, nad NC/AT, MMM JVP flat, no carotid bruit RRR, no m/r/g CTAB, NWB Soft, NT, NABS Warm, no edema AAOx4, moves all extremities Normal affect and mood ECG: SR Labs: reviewed A/P # Acute CVA # CAD # suspected embolic source # Possible new cardiomyopathy # HTN, HLD, poorly controlled DM # CML I have reviewed the TTE images, though the endocardial definition is poor,I actually think the LVEF is probably low-normal or normal. We can get a cardiac CT to exclude source of embolism and to evaluate thecoronaries. Normally would recommend SGLT2i, but she has a UTI Remainder of plan as above Thank you for involving the cardiology consult team in the care of thispatient. We will continue to follow. Andrew Soto MD, MPH Interventional Cardiology Structural Heart ADDENDUM: She has a high grade lesion in the proximal LAD on CCTA, nosource of embolism noted. Given her high degree of risk for hemorrhagicconversion, we will likely recommend outpatient cath for this--willdiscuss with neurology and with the patient. She does not have an urgentindication for revascularization at this time, though will likely benefitin the long run. ECG AND WAVEFORMS - TELEMETRY Routine 02/06/2025 7:00 AM EDT GLUCOSE METER POC Routine 02/05/2025 10:24 PM EDT ECG AND WAVEFORMS - TELEMETRY Routine 02/05/2025 7:44 PM EDT GLUCOSE METER POC Routine 02/05/2025 6:16 PM EDT W[place] US CAROTID DUPLEX BILATERAL Routine 02/05/2025 3:47 PM EDT EC ECHOCARDIOGRAM LIMITED Routine 02/05/2025 3:37 PM EDT GLUCOSE METER POC Routine 02/05/2025 1:01 PM EDT ECG AND WAVEFORMS - TELEMETRY Routine 02/05/2025 12:22 PM EDT GLUCOSE METER POC Routine 02/05/2025 9:17 AM EDT IP CONSULT TO NEUROLOGY STAT 02/05/2025 3:43 AM EDT Procedure Note - Karen Hong DO - 02/05/2025 12:14 PM EDTThis note is in progress. Admit date: 02/01/2025 Admitting diagnosis: AMS (altered mental status) [R41.82] Today's date: 02/05/2025 Current length of stay: 4 day(s) HPI: This is a 69 y.o. right handed female with a hx of stroke,DM, CKD, HTN, HLD and vascular dementia whom I am seeing in neurologicconsultation at the request of Chapo Freitas MD for evaluation of stroke. The patient was last seen in my office on 05/28/2024. She has a history ofmultiple strokes in the past, left periatrial region (10/2022), rightthalamus (05/2022) and right obando radiata (04/2019). She was on babyaspirin and statin (low-dose due to elevated LFTs). Was previously onEliquis, but it was unclear if she was still on it at her last officevisit. She did not pick it up for a year, so message was sent to her PCP.She has baseline left-sided numbness and left leg pain/weakness since hersmer 2019 stroke. Workup was unremarkable for other etiologies. Shewas also noted to have hallucinations and was seeing behavioral health.They had her on Seroquel. The patient was admitted 02/01/2025 for altered mental status. Her sisterhad gone to check on her and she stated more confused than usual. She wasable to identify her sister, but was less responsive. She was noted to beagitated with altered mental status and it was suspected to be due to herunderlying cognitive impairment. Psychiatry was consulted. Patientrequired net bed yesterday. Per psychiatry note, they discontinued theSeroquel and she remains on Haldol IV as needed. Patient was also noted to have a UTI on admission as well as GEORGIE that hassince resolved. When symptoms did not improve, an MRI brain was ordered. MRI brain showedmultifocal acute ischemic strokes, most prominent in the right temporallobe. Neurology was consulted. 02/05/2025 MRI brain without contrast personally reviewed: MultifocalDWI/ADC changes noted-small areas noted in the left temporal, leftparietal, left occipital. Largest area involved to the right temporallobe with punctate areas in the right and left frontal lobes as well.Findings consistent with embolic event. Chronic white matter changes andprevious injuries also noted TTE pending Carotid ultrasound pending BUN/creatinine: 10/0.76 Lactic acid: 1.9 B12/folic acid: 546/12.90 TSH: 0.936 NH3: 14 LDL: 125 Blood cultures: NGTD Hemoglobin A1c: 10.9 Telemetry: NSR Past Medical History: Diagnosis Date Acute ischemic stroke (HCC) Age-related osteoporosis without current pathological fracture 09/09/2021 Allergy Cancer (HCC) leukemia Chronic kidney disease Diabetes mellitus (HCC) Essential hypertension Hyperlipidemia Thyroid nodule 04/18/2017 Active Hospital Problems Diagnosis *AMS (altered mental status) Acute psychosis (HCC) 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 (HCC) History of stroke Type 2 diabetes mellitus with peripheral neuropathy (HCC) Hyperlipidemia LDL goal <70 CML (chronic myeloid leukemia) in relapse (HCC) Dyslipidemia associated with type 2 diabetes mellitus (HCC) Past Surgical History: Procedure Laterality Date CHOLECYSTECTOMY COLONOSCOPY COLONOSCOPY N/A 07/31/2014 Surgeon: Jewel Armas MD; Location: [facility]; Service:Endoscopy HYSTERECTOMY pt has left ovary UPPER GASTROINTESTINAL ENDOSCOPY N/A 07/31/2014 ESOPHAGOGASTRODUODENOSCOPY with biopsy/ COLONOSCOPY; Surgeon: Jewel Armas MD; Location: [facility]; Service: Endoscopy Social History Tobacco Use Smoking status: Never Smokeless tobacco: Never Substance Use Topics Alcohol use: No Family History Problem Relation Age of Onset Other Father car accident No Known Problems Sister No Known Problems Mother Colon Cancer Other Stomach Cancer Other Cancer Other High Cholesterol Sister High Cholesterol Sister No Known Problems Brother No Known Problems Maternal Grandmother No Known Problems Maternal Grandfather No Known Problems Paternal Grandmother No Known Problems Paternal Grandfather Diabetes Sister Heart Disease Sister Kidney Disease Sister No Known Problems Sister No Known Problems Brother No Known Problems Brother No Known Problems Brother No Known Problems Brother No Known Problems Brother Hearing Loss Neg Hx Allergies Neg Hx Migraines Neg Hx Thyroid Disease Neg Hx Bleeding Prob Neg Hx No current facility-administered medications on file prior to encounter. Current Outpatient Medications on File Prior to Encounter Medication Sig Dispense Refill aspirin 81 mg Oral Tablet, Delayed Release (E.C.) TAKE 1 TABLET BY MOUTHONCE DAILY WITH BREAKFAST 60 Tablet 0 atorvastatin (LIPITOR) 40 mg Oral Tablet TAKE 1 TABLET BY MOUTH NIGHTLY.90 Tablet 2 BD ALCOHOL SWABS Top Pads, Medicated Use to check blood glucose threetimes daily. Dx: E11.42. Per formulary 200 Each 3 DIETARY SUPPLEMENT ORAL Take 1 Capsule by mouth daily. [employer] overthe counter supplement (Patient not taking: Reported on 10/08/2024) FREESTYLE KATHERINE 3 PLUS SENSOR Misc Device 1 Each by [facility] [place].(Non-Drug; ComboRoute) route every 15 days. Follow package directions to apply sensor forcontinuous blood glucose monitoring. Change sensor every 15 days. 2 Each 3 FREESTYLE KATHERINE 3 READER Misc Misc Subcutaneous (Inject under the skin) 1Each once a week. Use as directed for continuous blood glucose monitoring.1 Each 0 glimepiride (AMARYL) 4 mg Oral Tablet Take 1 Tablet by mouth 2 timesdaily. 180 Tablet [address] 1 Suppository rectally daily as needed.(Patient not taking: Reported on 01/30/2025) 12 Suppository 0 insulin glargine (LANTUS SOLOSTAR U-100 INSULIN) 100 unit/mL (3 mL) SubQInsulin Pen INJECT 35 UNITS SUBCUTANEOUSLY TWICE DAILY 60 mL 1 Insulin [place], Disposable, (LEORA PEN NEEDLE) 32 gauge x 5/32 MiscNeedle USE TWICE DAILY WITH BASAGLAR 100 Each 0 ketoconazole (NIZORAL) 2 % Top Cream Apply topically 2 times daily.(Patient not taking: Reported on 01/30/2025) 30 g 0 ketotifen (ZADITOR) 0.025 % (0.035 %) Opht Drops Place 1 Drop into botheyes 2 times daily. 5 mL 1 latanoprost (XALATAN) 0.005 % Opht Drops PLACE 1 DROP INTO BOTH EYESNIGHTLY. 2.5 mL 0 lisinopriL (PRINIVIL;ZESTRIL) 10 mg Oral Tablet Take 1 Tablet by mouthdaily. 90 Tablet 1 methocarbamoL (ROBAXIN) 500 mg Oral Tablet TAKE 1 TABLET BY MOUTH 4 TIMESDAILY NEEDED FOR MUSCLE SPASMS. 120 Tablet 1 mirabegron (MYRBETRIQ) 25 mg Oral Tablet Sustained Release 24 hr Take 1Tablet by mouth daily. 30 Tablet 5 OLANZapine (ZYPREXA) 7.5 mg Oral Tablet omeprazole (PRILOSEC) 20 mg Oral Capsule, Delayed Release(E.C.) TAKE 1CAPSULE BY MOUTH TWICE DAILY 200 Capsule 0 polyethylene glycol (GLYCOLAX) 17 gram/dose Oral Powder Take 17 g bymouth daily. QUEtiapine (SEROQUEL) 50 mg Oral Tablet TAKE 1 TABLET BY MOUTH TWICEDAILY 200 Tablet 0 sulfamethoxazole-trimethoprim (BACTRIM DS) 800-160 mg Oral Tablet Take 1Tablet by mouth every 12 hours for 10 days. 20 Tablet 0 Scheduled Meds: aspirin 81 mg Oral Daily WM atorvastatin 40 mg Oral Nightly enoxaparin 30 mg Subcutaneous Daily - LMWH/Xa ENSURE Original 1.05 1 Bottle Oral BID with Meals insulin aspart U-100 1-15 Units Subcutaneous QID WM memantine 5 mg Oral BID Continuous Infusions: PRN Meds:.acetaminophen, dextrose, glucagon AND sterile water,haloperidol lactate OR haloperidol lactate, polyethylene glycol Allergies Allergen Reactions Ambien [Zolpidem] Other (See Comments) AV hallucinations Codeine Itching Jardiance [Empagliflozin] Rash GMI Byetta [Exenatide] Nausea Only ROS: Denies pain, but remainder is limited. Physical Examination: Patient Vitals for the past 24 hrs: BP Temp Temp src Pulse Resp SpO2 Weight 02/05/25 1200 128/57 97.7 F (36.5 C) Oral 84 14 97 % -- 02/05/25 0908 129/67 97.5 F (36.4 C) Axillary 84 14 99 % -- 02/05/25 0535 116/61 97.4 F (36.3 C) Oral 92 14 95 % -- 02/05/25 0517 -- -- -- -- -- -- 114 lb 6.7 oz (51.9 kg) 02/04/25 1932 112/87 98.4 F (36.9 C) Oral 101 16 97 % -- 02/04/25 1528 139/66 98.5 F (36.9 C) Oral 100 16 100 % -- General: This is a somewhat cooperative female in [facility]. HEENT: NC/AT, fundi not fully visualized Cardiovascular: Carotid auscultation negative bilaterally. RRR, nomurmurs/gallops/rubs Resp: CTAB, no wheezes/rales/rhonchi Abd: soft, NT, ND Ext: no cyanosis, clubbing, edema, 2/4 pedal pulses bilaterally Mental Status: A+O to person, place but states it is March and does notknow the year or president. She is slow to respond, but speech is fluent.Unable to determine if there is any aphasia given limited interaction Cranial Nerves: II: Visual pillai full to confrontation. Pupils equal, round and reactiveto light, 4-2 mm OU. III, IV, : EOMI. No nystagmus V: Facial sensations symmetric to light touch VII: Facial movements symmetric, smile symmetric VIII: Hearing grossly intact IX, X: Palate raises midline, no uvula deviation XI: Shoulder shrug symmetric XII: Tongue protrudes midline Motor: 4+/5 LLE proximally and 5/5 distally. 5 -/5 LUE in UMN pattern(baseline). + Left-sided neglect (new). 5/5 strength in right upper andlower extremities proximally and distally. Normal muscle bulk and tone inbilateral upper and lower extremities. No spasticity, rigidity or tremornoted. Sensory: Withdraws all 4 extremities to painful stimuli Coordination: Unable to assess Reflexes: 2/4 bilateral biceps, triceps, brachioradialis. 1/4 bilateralpatellar, 1/4 bilateral Achilles. Gait: Not assessed due to fall risk Labs and Imaging: Admission on 02/01/2025 Component Date Value Glucose Meter POC 02/02/2025 156 (H) Sample Type 02/02/2025 Capillary Patient Status 02/02/2025 Non-Critical Patient Glucose Meter POC 02/02/2025 85 Sample Type 02/02/2025 Capillary Patient Status 02/02/2025 Non-Critical Patient Hgb A1C 02/02/2025 10.9 (H) Est. Avg Glucose 02/02/2025 266 Cholesterol 02/02/2025 227 (H) Triglyceride 02/02/2025 338 (H) HDL 02/02/2025 42 LDL Calculated 02/02/2025 125 (H) Non-HDL-C Calculated 02/02/2025 185 (H) Fasting Specimen? 02/02/2025 Yes Culture Result 02/02/2025 No Growth at 48 hours. Culture Result 02/02/2025 No Growth at 48 hours. WBC 02/02/2025 9.1 RBC 02/02/2025 4.98 Hgb 02/02/2025 12.9 Hct 02/02/2025 40.3 MCV 02/02/2025 80.9 MCH 02/02/2025 25.9 (L) MCHC 02/02/2025 32.0 RDW 02/02/2025 13.9 Platelet 02/02/2025 190 MPV 02/02/2025 12.4 Neut Percent 02/02/2025 59.5 Imm Gran% 02/02/2025 0.4 Lymph Percent 02/02/2025 31.8 Barber Percent 02/02/2025 6.5 Eos Percent 02/02/2025 0.7 Baso Percent 02/02/2025 1.1 Neut # 02/02/2025 5.4 IMMGRAN# 02/02/2025 0.0 Lymph # 02/02/2025 2.9 Barber # 02/02/2025 0.6 Eos# 02/02/2025 0.1 Baso # 02/02/2025 0.1 Ammonia 02/02/2025 14 TSH 02/02/2025 0.936 Vitamin B12 02/02/2025 546 Folate 02/02/2025 12.90 Sodium 02/02/2025 141 Potassium 02/02/2025 3.8 Chloride 02/02/2025 109 (H) Total CO2 02/02/2025 21 (L) Anion Gap 02/02/2025 11 Calcium 02/02/2025 8.9 Glucose Lvl 02/02/2025 81 BUN 02/02/2025 12 Creatinine 02/02/2025 1.05 eGFR (CKD-EPIcr 2020) 02/02/2025 58 (L) Glucose Meter POC 02/02/2025 98 Sample Type 02/02/2025 Capillary Patient Status 02/02/2025 Non-Critical Patient Glucose Meter POC 02/02/2025 151 (H) Sample Type 02/02/2025 Capillary Patient Status 02/02/2025 Non-Critical Patient WBC 02/03/2025 7.3 RBC 02/03/2025 5.16 Hgb 02/03/2025 13.6 Hct 02/03/2025 41.8 MCV 02/03/2025 81.0 MCH 02/03/2025 26.4 MCHC 02/03/2025 32.5 RDW 02/03/2025 13.6 Platelet 02/03/2025 165 MPV 02/03/2025 11.3 Neut Percent 02/03/2025 57.7 Imm Gran% 02/03/2025 0.4 Lymph Percent 02/03/2025 31.8 Barber Percent 02/03/2025 7.8 Eos Percent 02/03/2025 0.8 Baso Percent 02/03/2025 1.5 Neut # 02/03/2025 4.2 IMMGRAN# 02/03/2025 0.0 Lymph # 02/03/2025 2.3 Barber # 02/03/2025 0.6 Eos# 02/03/2025 0.1 Baso # 02/03/2025 0.1 Sodium 02/03/2025 138 Potassium 02/03/2025 4.2 Chloride 02/03/2025 104 Total CO2 02/03/2025 15 (L) Anion Gap 02/03/2025 19 (H) Calcium 02/03/2025 9.5 Glucose Lvl 02/03/2025 214 (H) BUN 02/03/2025 10 Creatinine 02/03/2025 0.86 eGFR (CKD-EPIcr 2020) 02/03/2025 73 Glucose Meter POC 02/03/2025 260 (H) Sample Type 02/03/2025 Capillary Patient Status 02/03/2025 Non-Critical Patient Lactic Acid 02/03/2025 1.9 Glucose Meter POC 02/03/2025 226 (H) Sample Type 02/03/2025 Capillary Patient Status 02/03/2025 Non-Critical Patient Glucose Meter POC 02/03/2025 248 (H) Sample Type 02/03/2025 Capillary Patient Status 02/03/2025 Non-Critical Patient Glucose Meter POC 02/03/2025 123 (H) Sample Type 02/03/2025 Capillary Patient Status 02/03/2025 Non-Critical Patient WBC 02/04/2025 6.5 RBC 02/04/2025 5.55 (H) Hgb 02/04/2025 14.7 Hct 02/04/2025 46.0 (H) MCV 02/04/2025 82.9 MCH 02/04/2025 26.5 MCHC 02/04/2025 32.0 RDW 02/04/2025 13.9 Platelet 02/04/2025 46 (L) MPV 02/04/2025 Neut Percent 02/04/2025 43.5 Imm Gran% 02/04/2025 0.3 Lymph Percent 02/04/2025 46.1 Barber Percent 02/04/2025 7.6 Eos Percent 02/04/2025 1.4 Baso Percent 02/04/2025 1.1 Neut # 02/04/2025 2.8 IMMGRAN# 02/04/2025 0.0 Lymph # 02/04/2025 3.0 Barber # 02/04/2025 0.5 Eos# 02/04/2025 0.1 Baso # 02/04/2025 0.1 [place] Cell 02/04/2025 Occasional Sodium 02/04/2025 139 Potassium 02/04/2025 4.8 Chloride 02/04/2025 106 Total CO2 02/04/2025 21 (L) Anion Gap 02/04/2025 12 Calcium 02/04/2025 9.3 Glucose Lvl 02/04/2025 207 (H) BUN 02/04/2025 10 Creatinine 02/04/2025 0.76 eGFR (CKD-EPIcr 2020) 02/04/2025 85 Glucose Meter POC 02/04/2025 200 (H) Sample Type 02/04/2025 Capillary Patient Status 02/04/2025 Non-Critical Patient WBC 02/04/2025 9.7 RBC 02/04/2025 5.57 (H) Hgb 02/04/2025 14.5 Hct 02/04/2025 44.2 MCV 02/04/2025 79.4 (L) MCH 02/04/2025 26.0 MCHC 02/04/2025 32.8 RDW 02/04/2025 13.9 Platelet 02/04/2025 185 MPV 02/04/2025 11.7 Neut Percent 02/04/2025 65.5 Imm Gran% 02/04/2025 0.7 Lymph Percent 02/04/2025 23.5 Barber Percent 02/04/2025 8.1 Eos Percent 02/04/2025 1.2 Baso Percent 02/04/2025 1.0 Neut # 02/04/2025 6.3 (H) IMMGRAN# 02/04/2025 0.1 Lymph # 02/04/2025 2.3 Barber # 02/04/2025 0.8 Eos# 02/04/2025 0.1 Baso # 02/04/2025 0.1 Glucose Meter POC 02/04/2025 261 (H) Sample Type 02/04/2025 Capillary Patient Status 02/04/2025 Non-Critical Patient Glucose Meter POC 02/04/2025 251 (H) Sample Type 02/04/2025 Capillary Patient Status 02/04/2025 Non-Critical Patient Glucose Meter POC 02/04/2025 306 (H) Sample Type 02/04/2025 Capillary Patient Status 02/04/2025 Non-Critical Patient Glucose Meter POC 02/05/2025 321 (H) Sample Type 02/05/2025 Capillary Patient Status 02/05/2025 Non-Critical Patient MRI BRAIN WO CONTRAST Result Date: 02/05/2025 1. Multifocal areas of restricted diffusion consistent with acuteischemia. Largest area is in the posterior right temporal lobe. 2.Multifocal areas of encephalomalacia from previous infarcts. - Note:Radiology results need to be interpreted within a comprehensive clinicalcontext. If you have questions about the radiology report, please contactthe office of the ordering clinician. XR ABDOMEN AP Result Date: 02/04/2025 No metallic foreign body or instrumentation. - Note: Radiology resultsneed to be interpreted within a comprehensive clinical context. If youhave questions about the radiology report, please contact the office ofthe ordering clinician. Impression/Recommendations: This is a 69 y.o. female with a hx of stroke, DM, CKD, HTN, HLD andvascular dementia seen in neurologic evaluation regarding stroke. Acute multifocal ischemic strokes-confirmed on MRI brain and concerningfor embolic event. TTE pending. Carotid ultrasound pending. Patient wason aspirin and statin [employer]. She was on Eliquis in the past but it was lastpicked up 04/2023. Unclear why it was discontinued and given the newembolic strokes, would recommend reinitiation if no contraindication.However, would hold starting Eliquis 5 mg twice daily until 7 days fromstroke onset. Once DOAC started, no role for aspirin. Continue statin.Stroke risk factor modification, neurochecks, serial exams, remotetelemetry, PT/OT/ST Acute encephalopathy-likely multifactorial secondary to UTI, GEOR[place]IE and acuteischemic stroke superimposed on known vascular dementia. History of multiple strokes-patient was previously on Eliquis butdiscontinued for unknown reason. Was on aspirin and statin [employer] DM-needs tighter glycemic control. Primary team to manage HLD-continue statin HTN-primary team to manage Await remainder of stroke workup. Will follow. Thank you for allowing me to participate in the care of Fatoumata Nancy MontanoBailey.Please do no hesitate to contact me with any further questions orconcerns. This note was created using voice recognition technology and despiteproof-reading efforts may contain unintended errors. MRI BRAIN WO CONTRAST СЕРГЕЙ 02/05/2025 12:00 AM EDT GLUCOSE METER POC Routine 02/04/2025 10:25 PM EDT XR ABDOMEN AP СЕРГЕЙ 02/04/2025 9:23 PM EDT GLUCOSE METER POC Routine 02/04/2025 6:21 PM EDT GLUCOSE METER POC Routine 02/04/2025 2:29 PM EDT CBC WITH DIFF STAT 02/04/2025 12:51 PM EDT GLUCOSE METER POC Routine 02/04/2025 10:18 AM EDT BASIC METABOLIC PANEL Early AM 02/04/2025 8:58 AM EDT CBC WITH DIFF Early AM 02/04/2025 8:58 AM EDT GLUCOSE METER POC Routine 02/03/2025 9:53 PM EDT GLUCOSE METER POC Routine 02/03/2025 6:24 PM EDT LACTIC ACID Routine 02/03/2025 12:42 PM EDT BASIC METABOLIC PANEL Early AM 02/03/2025 12:42 PM EDT CBC WITH DIFF Early AM 02/03/2025 12:42 PM EDT GLUCOSE METER POC Routine 02/03/2025 12:37 PM EDT IP CONSULT TO NUTRITION Routine 02/03/2025 12:21 PM EDT IP CONSULT TO PSYCHIATRY Routine 02/03/2025 12:10 PM EDT Procedure Note - Anderson Eng MD - 02/03/2025 1:10 PM EDTThis note is in progress. Psychiatry Consult Note Admit Date: 02/01/2025 LOS: 2 days Attending: Chapo Freitas MD Reason for Consult: CC: I am in school Subjective: The patient is a 69-year-old female, psychiatric consultation was receivedregarding change in mental status, confusion, disorientation. The patient was admitted from the emergency room on 02/01/2025, the patientpresented with change in mental status. Her sister went to check on her,but the patient was poorly responsive, the patient reported headaches, inthe past she had significant hallucinations in the setting of change inmental status. Medical issues include change in mental status, UTI, acute kidney injury,lactic acidosis, chronic pain regimen, status post CVA, osteoporosis,leukemia, chronic kidney disease, diabetes, hypertension, hyperlipidemia,thyroid nodule, status post cholecystectomy, status post hysterectomy,debility. The patient was described to be confused, agitated, DARCY code was calledon her today. The patient currently has been on Seroquel 50 mg twice a day, Namenda 5 mgtwice a day, Haldol 2 mg only as needed basis, she was medicated withZyprexa 2.5 mg IM, Geodon 5 mg IM due to agitation today. CT scan of the head from 02/01/2025 showed multifocal remote infarcts,periventricular white matter changes that were suggestive of mild chronicmicrovascular ischemic disease, multifocal areas of scatteredencephalomalacia, involving bilateral parietal lobes, bilateral temporallobes, bilateral occipital lobes, right cerebellum. EKG showed QTc of 458. Lactic acid was 1.9 trending down from 2.8, sodium was 141, potassium 3.8,chloride 109, CO2 21, anion gap 11, calcium 8.9, glucose 81, BUN 12,creatinine 1.05, GFR 58. Vitamin B12 level was 446, folic acid level was12.90. TSH was 0.96. Ammonia level was 14. WBC was 9.1, [id number], hematocrit 40.3, platelet count was 190. Drug screen was positivefor benzodiazepines and tricyclic antidepressants. Urinalysis waspositive for glucose, trace of protein, white blood cells. The patient was seen on a consultation basis by Dr. Gilbert on 11/23/2023,the patient was admitted to [facility] on 11/22/2024. She reported visual hallucinations, auditory hallucinations, the patienthad a change in mental status since having a CVA in 2021. The patientstarted to have visual hallucinations on and off periodically, when shewas admitted to a psychiatric facility visual hallucinations were moreprominent, the patient was seeing shadows, dogs, she was diagnosed withUTI, probably she had delirium superimposed upon vascular dementia. The patient presented with significant cognitive deficits, in the settingof probably vascular dementia. She did not have formal psychiatric history until recent psychiatricadmission, the patient presented with change in mental status, agitation,multifactorial. After her psychiatric admission she was discharged on 11/27/2024, she wassubsequently seen on a consultation basis due to visual hallucinations on12/02/2024. The chart review however showed long-term use of benzodiazepines, she wason Valium 5 mg at bedtime for many years up until 2019. Recently she wastreated with antipsychotics including Zyprexa 5 mg at bedtime, Seroquel 25to 50 mg twice a day. The patient was also on Seroquel XR 50 mg atbedtime in 2022. The chart review also showed use of antidepressants in the past, includingCymbalta 30 mg daily in 2020, Zoloft 50 mg daily in 2018. The patient wasalso on Pamelor 25 mg at bedtime 2017. The patient was seen, she was in safety plan, she was restless, but notcombative. She was oriented to person only, she stated she was in school.The presentation is suggestive of delirium, acute psychosis, superimposedupon dementia, probably vascular type. She has not been taking oral medications, the patient is currently placedon Haldol 2 mg IM or IV on as needed basis for agitation, Seroquel isgoing to be adjusted to 25 mg 3 times a day, with probably very uncertaincompliance. She is going to be followed up as needed. According to chart review and include presentation she may need placement,due to uncertain prognosis cognitively. Past Psych Hx: The patient was seen on a consultation basis by Dr. Gilbert on 11/23/2023,the patient was admitted to [facility] on 11/22/2024. She reported visual hallucinations, auditory hallucinations, the patienthad a change in mental status since having a CVA in 2021. The patientstarted to have visual hallucinations on and off periodically, when shewas admitted to a psychiatric facility visual hallucinations were moreprominent, the patient was seeing shadows, dogs, she was diagnosed withUTI, probably she had delirium superimposed upon vascular dementia. The patient presented with significant cognitive deficits, in the settingof probably vascular dementia. She did not have formal psychiatric history until recent psychiatricadmission, the patient presented with change in mental status, agitation,multifactorial. After her psychiatric admission she was discharged on 11/27/2024, she wassubsequently seen on a consultation basis due to visual hallucinations on12/02/2024. The chart review however showed long-term use of benzodiazepines, she wason Valium 5 mg at bedtime for many years up until 2018. Recently she wastreated with antipsychotics including Zyprexa 5 mg at bedtime, Seroquel 25to 50 mg twice a day. The patient was also on Seroquel XR 50 mg atbedtime in 2022. The chart review also showed use of antidepressants in the past, includingCymbalta 30 mg daily in 2020, Zoloft 50 mg daily in 2018. The patient wasalso on Pamelor 25 mg at bedtime 2017. Family Psych Hx: The patient did not have family psychiatric history based on the chartreview. Social Hx: The patient has been residing with her son prior to the admission. She isdivorced, the patient has significant functional cognitive debility. She has four children, the patient according to her son is not able to beindependent, her son could not provide supervision prior to the admission,her son stated that [facility] placement would be probably indicated dueto inability for her to be at home anymore. The patient has four sons, one of them lives close by, and another onelives in [place], one lives in [place], her son Daniele has history oflearning disability, probably he is unable to provide supervision. The [facility] may need placement in [facility], due to significantcognitive and functional debility. Labs: Admission on 02/01/2025 Component Date Value Glucose Meter POC 02/02/2025 156 (H) Sample Type 02/02/2025 Capillary Patient Status 02/02/2025 Non-Critical Patient Glucose Meter POC 02/02/2025 85 Sample Type 02/02/2025 Capillary Patient Status 02/02/2025 Non-Critical Patient Hgb A1C 02/02/2025 10.9 (H) Est. Avg Glucose 02/02/2025 266 Cholesterol 02/02/2025 227 (H) Triglyceride 02/02/2025 338 (H) HDL 02/02/2025 42 LDL Calculated 02/02/2025 125 (H) Non-HDL-C Calculated 02/02/2025 185 (H) Fasting Specimen? 02/02/2025 Yes Culture Result 02/02/2025 No Growth at 24 hours. Culture Result 02/02/2025 No Growth at 24 hours. WBC 02/02/2025 9.1 RBC 02/02/2025 4.98 Hgb 02/02/2025 12.9 Hct 02/02/2025 40.3 MCV 02/02/2025 80.9 MCH 02/02/2025 25.9 (L) MCHC 02/02/2025 32.0 RDW 02/02/2025 13.9 Platelet 02/02/2025 190 MPV 02/02/2025 12.4 Neut Percent 02/02/2025 59.5 Imm Gran% 02/02/2025 0.4 Lymph Percent 02/02/2025 31.8 Barber Percent 02/02/2025 6.5 Eos Percent 02/02/2025 0.7 Baso Percent 02/02/2025 1.1 Neut # 02/02/2025 5.4 IMMGRAN# 02/02/2025 0.0 Lymph # 02/02/2025 2.9 Barber # 02/02/2025 0.6 Eos# 02/02/2025 0.1 Baso # 02/02/2025 0.1 Ammonia 02/02/2025 14 TSH 02/02/2025 0.936 Vitamin B12 02/02/2025 546 Folate 02/02/2025 12.90 Sodium 02/02/2025 141 Potassium 02/02/2025 3.8 Chloride 02/02/2025 109 (H) Total CO2 02/02/2025 21 (L) Anion Gap 02/02/2025 11 Calcium 02/02/2025 8.9 Glucose Lvl 02/02/2025 81 BUN 02/02/2025 12 Creatinine 02/02/2025 1.05 eGFR (CKD-EPIcr 2020) 02/02/2025 58 (L) Glucose Meter POC 02/02/2025 98 Sample Type 02/02/2025 Capillary Patient Status 02/02/2025 Non-Critical Patient Glucose Meter POC 02/02/2025 151 (H) Sample Type 02/02/2025 Capillary Patient Status 02/02/2025 Non-Critical Patient Glucose Meter POC 02/03/2025 260 (H) Sample Type 02/03/2025 Capillary Patient Status 02/03/2025 Non-Critical Patient Lactic Acid 02/03/2025 1.9 Glucose Meter POC 02/03/2025 226 (H) Sample Type 02/03/2025 Capillary Patient Status 02/03/2025 Non-Critical Patient Review of Systems: Review of Systems Neurological: Positive for speech change and weakness. Psychiatric/Behavioral: Positive for hallucinations and memory loss. Thepatient is nervous/anxious. Objective: . Vitals: 02/02/25 2034 02/03/25 0532 02/03/25 0533 02/03/25 0842 BP: 107/76 133/73 116/90 BP Location: Right arm Right arm Left arm Patient Position: Semi Fowlers Semi Fowlers Sitting Pulse: 69 94 91 Resp: 14 16 Temp: 97.4 F (36.3 C) 97.6 F (36.4 C) TempSrc: Forehead Forehead Axillary SpO2: 100% 97% 100% Weight: 115 lb 8.3 oz (52.4 kg) Height: Scheduled Meds: cefTRIAXone (ROCEPHIN) IVPB (Orderable) 1 g Intravenous Daily enoxaparin 30 mg Subcutaneous Daily - LMWH/Xa ENSURE Original 1.05 1 Bottle Oral BID with Meals haloperidol lactate 2 mg Intramuscular Once insulin aspart U-100 1-15 Units Subcutaneous QID WM memantine 5 mg Oral BID QUEtiapine 50 mg Oral BID Mental Status Exam: Musculoskeletal:the patient was in net bed Gait:not tested Behavior:restless Appearance:Fair Abnormal Involuntary Movement:Absent Speech:impoverished Language:impoverished Mood:Anxious Affect:Constricted Thought Process:Confused and Disorganized Thought Content:Delusions Perception:Hallucinations SI/HI: not verbalized Cognition/Orientation:to person only Recent/Remote Memory: poor short and correction Insight/Judgement:Does not understand problem Assessment: The patient is a 69-year-old female, psychiatric consultationwas received regarding change in mental status, confusion,disorientation. The patient was admitted from the emergency room on 02/01/2025, the patientpresented with change in mental status. Her sister went to check on her,but the patient was poorly responsive, the patient reported headaches, inthe past she had significant hallucinations in the setting of change inmental status. Medical issues include change in mental status, UTI, acute kidney injury,lactic acidosis, chronic pain regimen, status post CVA, osteoporosis,leukemia, chronic kidney disease, diabetes, hypertension, hyperlipidemia,thyroid nodule, status post cholecystectomy, status post hysterectomy,debility. The patient was described to be confused, agitated, DARCY code was calledon her today. The patient currently has been on Seroquel 50 mg twice a day, Namenda 5 mgtwice a day, Haldol 2 mg only as needed basis, she was medicated withZyprexa 2.5 mg IM, Geodon 5 mg IM due to agitation today. CT scan of the head from 02/01/2025 showed multifocal remote infarcts,periventricular white matter changes that were suggestive of mild chronicmicrovascular ischemic disease, multifocal areas of scatteredencephalomalacia, involving bilateral parietal lobes, bilateral temporallobes, bilateral occipital lobes, right cerebellum. EKG showed QTc of 458. Lactic acid was 1.9 trending down from 2.8, sodium was 141, potassium 3.8,chloride 109, CO2 21, anion gap 11, calcium 8.9, glucose 81, BUN 12,creatinine 1.05, GFR 58. Vitamin B12 level was 446, folic acid level was12.90. TSH was 0.96. Ammonia level was 14. WBC was 9.1, [id number], hematocrit 40.3, platelet count was 190. Drug screen was positivefor benzodiazepines and tricyclic antidepressants. Urinalysis waspositive for glucose, trace of protein, white blood cells. The patient was seen on a consultation basis by Dr. Gilbert on 11/23/2023,the patient was admitted to [facility] on 11/22/2024. She reported visual hallucinations, auditory hallucinations, the patienthad a change in mental status since having a CVA in 2021. The patientstarted to have visual hallucinations on and off periodically, when shewas admitted to a psychiatric facility visual hallucinations were moreprominent, the patient was seeing shadows, dogs, she was diagnosed withUTI, probably she had delirium superimposed upon vascular dementia. The patient presented with significant cognitive deficits, in the settingof probably vascular dementia. She did not have formal psychiatric history until recent psychiatricadmission, the patient presented with change in mental status, agitation,multifactorial. After her psychiatric admission she was discharged on 11/27/2024, she wassubsequently seen on a consultation basis due to visual hallucinations on12/02/2024. The chart review however showed long-term use of benzodiazepines, she wason Valium 5 mg at bedtime for many years up until 2018. Recently she wastreated with antipsychotics including Zyprexa 5 mg at bedtime, Seroquel 25to 50 mg twice a day. The patient was also on Seroquel XR 50 mg atbedtime in 2022. The chart review also showed use of antidepressants in the past, includingCymbalta 30 mg daily in 2020, Zoloft 50 mg daily in 2018. The patient wasalso on Pamelor 25 mg at bedtime 2017. The patient was seen, she was in safety plan, she was restless, but notcombative. She was oriented to person only, she stated she was in school.The presentation is suggestive of delirium, acute psychosis, superimposedupon dementia, probably vascular type. She has not been taking oral medications, the patient is currently placedon Haldol 2 mg IM or IV on as needed basis for agitation, Seroquel isgoing to be adjusted to 25 mg 3 times a day, with probably very uncertaincompliance. She is going to be followed up as needed. According to chart review and include presentation she may need placement,due to uncertain prognosis cognitively. Provisional Diagnosis: Delirium of mixed origin Major neurocognitive disorder, probably vascular type, early onset, withbehavioral disturbances and delusions Acute Psychosis Past Medical/Surgical History: Past Medical History: Diagnosis Date Acute ischemic stroke (HCC) Age-related osteoporosis without current pathological fracture 09/09/2021 Allergy Cancer (HCC) leukemia Chronic kidney disease Diabetes mellitus (HCC) Essential hypertension Hyperlipidemia Thyroid nodule 04/18/2017 Past Surgical History: Procedure Laterality Date CHOLECYSTECTOMY COLONOSCOPY COLONOSCOPY N/A 07/31/2014 Surgeon: Jewel Armas MD; Location: [facility]; Service:Endoscopy HYSTERECTOMY pt has left ovary UPPER GASTROINTESTINAL ENDOSCOPY N/A 07/31/2014 ESOPHAGOGASTRODUODENOSCOPY with biopsy/ COLONOSCOPY; Surgeon: Jewel Armas MD; Location: [facility]; Service: Endoscopy Active Hospital Problems Diagnosis *AMS (altered mental status) History of stroke Type 2 diabetes mellitus with peripheral neuropathy (HCC) Hyperlipidemia LDL goal <70 CML (chronic myeloid leukemia) in relapse (HCC) Dyslipidemia associated with type 2 diabetes mellitus (HCC) Plan: The patient is a 69-year-old female, psychiatric consultation was receivedregarding change in mental status, confusion, disorientation. The patient was admitted from the emergency room on 02/01/2025, the patientpresented with change in mental status. Her sister went to check on her,but the patient was poorly responsive, the patient reported headaches, inthe past she had significant hallucinations in the setting of change inmental status. Medical issues include change in mental status, UTI, acute kidney injury,lactic acidosis, chronic pain regimen, status post CVA, osteoporosis,leukemia, chronic kidney disease, diabetes, hypertension, hyperlipidemia,thyroid nodule, status post cholecystectomy, status post hysterectomy,debility. The patient was described to be confused, agitated, DARCY code was calledon her today. The patient currently has been on Seroquel 50 mg twice a day, Namenda 5 mgtwice a day, Haldol 2 mg only as needed basis, she was medicated withZyprexa 2.5 mg IM, Geodon 5 mg IM due to agitation today. CT scan of the head from 02/01/2025 showed multifocal remote infarcts,periventricular white matter changes that were suggestive of mild chronicmicrovascular ischemic disease, multifocal areas of scatteredencephalomalacia, involving bilateral parietal lobes, bilateral temporallobes, bilateral occipital lobes, right cerebellum. EKG showed QTc of 458. Lactic acid was 1.9 trending down from 2.8, sodium was 141, potassium 3.8,chloride 109, CO2 21, anion gap 11, calcium 8.9, glucose 81, BUN 12,creatinine 1.05, GFR 58. Vitamin B12 level was 446, folic acid level was12.90. TSH was 0.96. Ammonia level was 14. WBC was 9.1, siymslfoig17.9, hematocrit 40.3, platelet count was 190. Drug screen was positivefor benzodiazepines and tricyclic antidepressants. Urinalysis waspositive for glucose, trace of protein, white blood cells. The patient was seen on a consultation basis by Dr. Gilbert on 11/23/2023,the patient was admitted to [place] [facility] on 11/22/2024. She reported visual hallucinations, auditory hallucinations, the patienthad a change in mental status since having a CVA in 2021. The patientstarted to have visual hallucinations on and off periodically, when shewas admitted to a psychiatric facility visual hallucinations were moreprominent, the patient was seeing shadows, dogs, she was diagnosed withUTI, probably she had delirium superimposed upon vascular dementia. The patient presented with significant cognitive deficits, in the settingof probably vascular dementia. She did not have formal psychiatric history until recent psychiatricadmission, the patient presented with change in mental status, agitation,multifactorial. After her psychiatric admission she was discharged on 11/27/2024, she wassubsequently seen on a consultation basis due to visual hallucinations on12/02/2024. The chart review however showed long-term use of benzodiazepines, she wason Valium 5 mg at bedtime for many years up until 2018. Recently she wastreated with antipsychotics including Zyprexa 5 mg at bedtime, Seroquel 25to 50 mg twice a day. The patient was also on Seroquel XR 50 mg atbedtime in 2022. The chart review also showed use of antidepressants in the past, includingCymbalta 30 mg daily in 2020, Zoloft 50 mg daily in 2018. The patient wasalso on Pamelor 25 mg at bedtime 2017. The patient was seen, she was in safety plan, she was restless, but notcombative. She was oriented to person only, she stated she was in school.The presentation is suggestive of delirium, acute psychosis, superimposedupon dementia, probably vascular type. She has not been taking oral medications, the patient is currently placedon Haldol 2 mg IM or IV on as needed basis for agitation, Seroquel isgoing to be adjusted to 25 mg 3 times a day, with probably very uncertaincompliance. She is going to be followed up as needed. According to chart review and include presentation she may need placement,due to uncertain prognosis cognitively. Thank you very much for the consultation. Anderson Eng MD SCANNED EKG 02/03/2025 9:37 AM EDT GLUCOSE METER POC Routine 02/03/2025 8:26 AM EDT GLUCOSE METER POC Routine 02/02/2025 10:34 PM EDT US RENAL AND BLADDER СЕРГЕЙ 02/02/2025 1:24 PM EDT GLUCOSE METER POC Routine 02/02/2025 12:58 PM EDT BASIC METABOLIC PANEL Early AM 02/02/2025 11:23 AM EDT VITAMIN B12/ FOLIC ACID Routine 02/02/2025 11:23 AM EDT THYROID STIMULATING HORMONE Routine 02/02/2025 11:23 AM EDT AMMONIA LEVEL Routine 02/02/2025 11:23 AM EDT CBC WITH DIFF Early AM 02/02/2025 11:23 AM EDT LIPID SCREEN Routine 02/02/2025 11:23 AM EDT HEMOGLOBIN A1C Routine 02/02/2025 11:23 AM EDT BLOOD CULTURE (NO STAIN) Routine 02/02/2025 11:22 AM EDT BLOOD CULTURE (NO STAIN) Routine 02/02/2025 11:22 AM EDT IP CONSULT TO SOCIAL WORK Routine 02/02/2025 10:43 AM EDT GLUCOSE METER POC Routine 02/02/2025 7:27 AM EDT GLUCOSE METER POC Routine 02/02/2025 12:04 AM EDT IP CONSULT TO SOCIAL WORK Routine 02/01/2025 9:45 PM EDT IP CONSULT TO SOCIAL WORK Routine 02/01/2025 9:45 PM EDT ADMIT Routine 02/01/2025 9:32 PM EDT ADMIT STAT 02/01/2025 7:23 PM EDT REPEAT LACTIC ACID STAT 02/01/2025 6:52 PM EDT GLUCOSE METER POC Routine 02/01/2025 6:50 PM EDT ECG AND WAVEFORMS - TELEMETRY Routine 02/01/2025 6:15 PM EDT DRUG CONFIRMATION, BENZODIAZEPINES - URINE STAT 02/01/2025 4:59 PM EDT URINALYSIS REFLEX STAT 02/01/2025 4:59 PM EDT RAPID DRUGS OF ABUSE W/REFLEX TO CONFIRMATION, UR(COV/DBN/GRT/MYRA) STAT 02/01/2025 4:59 PM EDT UA W/REFLEX TO CULTURE STAT 02/01/2025 4:59 PM EDT URINE CULTURE (NO STAIN) STAT 02/01/2025 4:59 PM EDT EXTRA HUNG URINE CX STAT 02/01/2025 4:[address] HEAD WO CONTRAST STAT 02/01/2025 4:05 PM EDT BLOOD GAS, VENOUS STAT 02/01/2025 3:46 PM EDT ALCOHOL MEDICAL STAT 02/01/2025 3:46 PM EDT LACTIC ACID STAT 02/01/2025 3:46 PM EDT PROCALCITONIN STAT 02/01/2025 3:46 PM EDT COMPREHENSIVE METABOLIC PANEL STAT 02/01/2025 3:46 PM EDT CBC WITH DIFF STAT 02/01/2025 3:46 PM EDT XR CHEST AP PORTABLE STAT 02/01/2025 3:42 PM EDT EK EKG 12 LEAD STAT 02/01/2025 3:33 PM EDT GLUCOSE METER POC Routine 02/01/2025 3:21 PM EDT URINE CULTURE (NO STAIN) Routine 01/30/2025 10:25 AM EDT Dysuria SEP URINALYSIS POC Routine 01/30/2025 10:09 AM EDT Dysuria COLONOSCOPY Routine 09/11/2024 10:02 AM EST Bloating Abdominal distension HM DIABETES EYE EXAM Routine 08/20/2024 4:31 PM EDT ACUTE HEPATITIS PANEL Routine 06/01/2022 6:10 PM EDT MICROALBUMIN/CREATI NINE RATIO URINE Routine 04/04/2022 8:19 AM EDT Type 2 diabetes mellitus with peripheral neuropathy (HCC) MM MAMMO DIGITAL ELICIA SCREEN BILAT Routine 09/01/2021 11:21 AM EDT Breast cancer screening by mammogram DX BONE DENSITY AXIAL SKELETON Routine 03/05/2018 3:29 PM EDT Localized osteoporosis of lower leg without pathological fracture Stress fracture of right ankle, initial encounter from Last 3 Months or Most Recently Relevant to Health Maintenance Results * (ABNORMAL) GLUCOSE METER POC (02/07/2025 6:37 PM EDT) Only the most recent of25 resultswithin the time period is included. Glucose Meter POC 143(H) 70 - 100 mg/dL 02/07/2025 6:39 PM EDT [facility] Sample Type Capillary 02/07/2025 6:39 PM EDT [facility] Patient Status Non-Critical Patient 02/07/2025 6:39 PM EDT [facility] Blood BLOOD SPECIMEN / Unknown 02/07/2025 6:37 PM EDT 02/07/2025 6:39 PM EDT Zoraida Esteban MD POINT OF CARE TEST ORDERABLES Fi nal Result [facility] [address] [place] [address] * (ABNORMAL) URINALYSIS REFLEX (02/07/2025 2:07 PM EDT) Only the most recent of2 resultswithin the time period is included. UA Color Light Yellow 02/07/2025 2:45 PM EDT [facility] UA Appear Clear Clear 02/07/2025 2:45 PM EDT [facility] UA Glucose 4+ (>1000mg/dL) (A) Negative mg/dL 02/07/2025 2:45 PM EDT [facility] UA Ketones Negative Negative mg/dL 02/07/2025 2:45 PM EDT [facility] UA Blood Negative Negative 02/07/2025 2:45 PM EDT [facility] UA pH 6.5 5.0 - 8.0 pH 02/07/2025 2:45 PM EDT [facility] UA Protein Negative Negative mg/dL 02/07/2025 2:45 PM EDT [facility] UA Urobilinogen Normal <=1 mg/dL 2:45 PM EDT [facility] UA Bili Negative Negative 02/07/2025 2:45 PM EDT [facility] UA Nitrite Negative Negative 02/07/2025 2:45 PM EDT [facility] UA Leuk Est 3+ (250 Cristobal/mcl)(A) Negative 02/07/2025 2:45 PM EDT [facility] UA Spec Grav 1.023 1.001 - 1.035 no units 02/07/2025 2:45 PM EDT [facility] Comment:Reference range rachelle d for random specimens only. UA WBC 6(H) 0 - 4 /HPF 02/07/2025 2:45 PM EDT [facility] UA RBC 3 0 - 3 /HPF 02/07/2025 2:45 PM EDT [facility] UA Squam Epi Few /LPF 02/07/2025 2:45 PM EDT [facility] UA Bacteria Trace(A) Negative /HPF 02/07/2025 2:45 PM EDT [facility] Urine STRUCTURE OF URINARY TRACT PROPER / Unknown 02/07/2025 2:07 PM EDT 02/07/2025 2:12 PM EDT us Juventino Santana MD URINE ORDERABLES Final Result Performing Organization Address [facility]/ZIP Co de Phone Number [facility] [address], [place] [address] * EXTRA HUNG URINE CX (02/07/2025 2:07 PM EDT) Only the most recent of2 resultswithin the time period is included. Urine STRUCTURE OF URINARY TRACT PROPER / Unknown 02/07/2025 2:07 PM EDT 02/07/2025 2:12 PM EDT us Juventino Santana MD MICROBIOLOGY - GENERAL ORDERABL ES Final Result Performing Organization Address [facility]/[place] [address] * URINE CULTURE (NO STAIN) (02/07/2025 2:07 PM EDT) Only the most recent of3 resultswithin the time period is included. Culture No growth at 30 hours. 02/08/2025 11:51 PM EDT [facility] Urine STRUCTURE OF URINARY TRACT PROPER / Unknown 02/07/2025 2:07 PM EDT 02/07/2025 2:45 PM EDT Juventino Santana MD MICROBIOLOGY - GENERAL ORDERABL ES Final Result Performing Organization Address [facility]/ZIP Co de Phone Number [facility], [address] , [place] [address] * POTASSIUM REPEAT (02/07/2025 12:14 PM EDT) Potassium 4.0 3.5 - 5.0 mmol/L 02/07/2025 12:57 PM EDT [facility] Blood VENOUS BLOOD / Unknown Venipuncture / Unknown 02/07/2025 12:14 PM EDT 02/07/2025 12:17 PM EDT Demi Mcneil APRN CHEMISTRY ORDERABLES Final Result Performing Organization Address [facility] Co de Phone Number [facility], [facility] [address] [facility] , [place] [address] * (ABNORMAL) BASIC METABOLIC PANEL (02/07/2025 9:54 AM EDT) Only the most recent of5 resultswithin the time period is included. Sodium 136 136 - 145 mmol/L 02/07/2025 11:15 AM EDT [facility] Potassium 02/07/2025 11:15 AM EDT [facility] Comment:Unable to result pot assium due to elevated hemolysis. Chloride 96(L) 98 - 107 mmol/L 02/07/2025 11:15 AM EDT [facility] Total CO2 25 22 - 29 mmol/L 02/07/2025 11:15 AM EDT [facility] Anion Gap 15 7 - 16 mmol/L 02/07/2025 11:15 AM EDT [facility] Calcium 9.6 8.8 - 10.4 mg/dL 02/07/2025 11:15 AM EDT [facility] Glucose Lvl 370(H) 70 - 99 mg/dL 02/07/2025 11:15 AM EDT [facility], [facility] BUN 14 8 - 23 mg/dL 02/07/2025 11:15 AM EDT [facility] Creatinine 0.87 0.51 - 1.30 mg/dL 02/07/2025 11:15 AM EDT [facility] eGFR (CKD-EPIcr 2020) 72 >=60 mL/min/1.7 3 m2 02/07/2025 11:15 AM EDT [facility] Comment:Estimated GFR was ca lculated using the CKD-EPIcr (2020) equation refit without race. The equation is recommended by the National Kidney [employer] - [place] [employer] Neph[employer] Task Force. Blood VENOUS BLOOD / Unknown Venipuncture / Unknown 02/07/2025 9:54 AM EDT 02/07/2025 10:03 AM EDT us Demi Mcneil PAINT FORMULATOR CHEMISTRY ORDERABLES Final Result Performing Organization Address City/[facility]/ZIP Co de Phone Number [facility] [address] [facility] , [place] [address] * ECG AND WAVEFORMS - TELEMETRY (02/07/2025 7:58 AM EDT) Only the most recent of3 resultswithin the time period is included. ECG INTERPRET NSR [facility] 02/07/2025 7:58 AM EDT Narrative [facility] - 02/07/2025 8:03 AM EDT EH - ROUTINE AR 0.20 QRS 0.12 RR 0.90 QT 0.42 QTc 0.44 See Clinical Report link for waveform capture us Unknown Provider POINT OF CARE CARDIOLOGY Final Result Performing Organization Address City/[facility]/ZIP Co de Phone Number [address] [address] * CT ANGIOGRAM CORONARY W CONTRAST (02/06/2025 1:53 PM EDT) Anatomical Region Laterality Modality Chest Computed Tomogra phy 02/06/2025 1:53 PM EDT Impressions 02/06/2025 2:14 PM EDT Short segment low-attenuation noncalcified plaque proximal LAD with suspected flow significant stenosis. Consideration for correlation with routine coronary arteriography recommended. CAD-RADS CLASSIFICATION: CAD-RADS 4A. 70-99% maximal coronary stenosis. Consistent with severe coronary artery disease. CAD-RADS MODIFIERS: No relevant modifier. CAD-RADS (Coronary Artery Disease-Reporting and Data System) is endorsed by the [place] [employer]. CAD-RADS grading is applied to vessels 1.5mm diameter and greater only. Link to source document. https://cdn.[email or web address][email or web address]/resource/resmgr/cad-rads/scct_jcct_cad-rads.pdf CODE СЕРГЕЙ: Results will be conveyed to the patient's care team by Radiology personnel as soon as possible following completion of this dictation. Note: Radiology results need to be interpreted within a comprehensive clinical context. If you have questions about the radiology report, please contact the office of the ordering clinician. Narrative 02/06/2025 2:[address] CORONARY ANGIOGRAM, 02/06/2025 1:53 PM CLINICAL HISTORY: -evaluate for embolus and evaluate for blockages in coronary arteries. COMPARISON: None. PROCEDURE COMMENTS: Heart rate control using Metoprolol as documented in EPIC. Sublingual NTG given if not contraindicated as recorded in EPIC. Isovue 370 IV contrast given as recorded in EPIC. CCTA prospective ECG-gated technique for coronary artery visualization. Interactive 3-D postprocessing done by the reviewing physician on a [employer] workstation, with one or more of the following: Maximum intensity projections (MIPS), Shaded surface rendering, and/or Volume rendering. Olivo images archived to PACS. Dose 1 : CT DLP Total : 317.69 mGycm Maximum CTDI Vol : 24.01 mGy FINDINGS: TECHNICAL QUALITY: Good with minor artifacts. CORONARY ORIGINS: Normal position. PDA arises from the RIGHT coronary circulation. LEFT MAIN: Bifurcates into LAD and Circumflex branches. Normal. No vessel narrowing. LAD (+ ramus intermedius if present): Severe narrowing, 70 % or greater short segment stenosis proximal LAD due to low-attenuation noncalcified plaque. CIRCUMFLEX: Normal. No vessel narrowing. RCA: Normal. No vessel narrowing. CARDIAC VALVES: No significant thickening or calcifications of the aortic or mitral valves. ATRIAL APPENDAGE: No thrombus. PERICARDIUM: Normal thickness. No effusion. EXTRACARDIAC: Visible lung parenchyma without mass or consolidation. No mediastinal mass lesion. Normal sized lymph nodes noted. Procedure Note Juventino Goddard MD - 02/06/2025 CT CORONARY ANGIOGRAM, 02/06/2025 1:53 PM CLINICAL HISTORY: -evaluate for embolus and evaluate for blockages incoronary arteries. COMPARISON: None. PROCEDURE COMMENTS: Heart rate control using Metoprolol as documented inEPIC. Sublingual NTG given if not contraindicated as recorded in EPIC. [id number] IV contrast given as recorded in EPIC. CCTA prospective ECG-gated techniquefor coronary artery visualization. Interactive 3-D postprocessing done bythe reviewing physician on a [employer] workstation, with one or more of thefollowing: Maximum intensity projections (MIPS), Shaded surface rendering, and/orVolume rendering. Olivo images archived to PACS. Dose 1 : CT DLP Total : 317.69 mGycm Maximum CTDI Vol : 24.01 mGy FINDINGS: TECHNICAL QUALITY: Good with minor artifacts. CORONARY ORIGINS: Normal position. PDA arises from the RIGHT coronary circulation. LEFT MAIN: Bifurcates into LAD and Circumflex branches. Normal. Novessel narrowing. LAD (+ ramus intermedius if present): Severe narrowing, 70 % or greatershort segment stenosis proximal LAD due to low-attenuation noncalcified plaque. CIRCUMFLEX: Normal. No vessel narrowing. RCA: Normal. No vessel narrowing. CARDIAC VALVES: No significant thickening or calcifications of the aorticor mitral valves. ATRIAL APPENDAGE: No thrombus. PERICARDIUM: Normal thickness. No effusion. EXTRACARDIAC: Visible lung parenchyma without mass or consolidation. No mediastinal mass lesion. Normal sized lymph nodes noted. IMPRESSION: Short segment low-attenuation noncalcified plaque proximal LAD with suspected flow significant stenosis. Consideration for correlation withroutine coronary arteriography recommended. CAD-RADS CLASSIFICATION: CAD-RADS 4A. 70-99% maximal coronary stenosis. Consistent with severe coronary artery disease. CAD-RADS MODIFIERS: No relevant modifier. CAD-RADS (Coronary Artery Disease-Reporting and Data System) is endorsedby the [place] [employer] of [employer]iology. CAD-RADS grading is applied to vessels1.5mm diameter and greater only. Link to source document. https://cdn.[employer].com/scct.org/resource/resmgr/cad-rads/scct_jcct_cad-rads.pdf CODE СЕРГЕЙ: Results will be conveyed to the patient's care team byRadiology personnel as soon as possible following completion of this dictation. Note: Radiology results need to be interpreted within a comprehensiveclinical context. If you have questions about the radiology report, please contactthe office of the ordering clinician. us Demi Mcneil PAINT FORMULATOR IMG CT ORDERABLES Final Res ult * (ABNORMAL) CBC (02/06/2025 10:01 AM EDT) WBC 10.9(H) 3.7 - 10.3 x10(3)/mcL 02/06/2025 10:20 AM EDT [facility] RBC 5.88(H) 3.90 - 5.20 x10(6)/mcL 02/06/2025 10:20 AM EDT [facility] Hgb 15.3 11.2 - 15.7 g/dL 02/06/2025 10:20 AM EDT [facility] Hct 47.1(H) 34.0 - 45.0 % 02/06/2025 10:20 AM EDT [facility] MCV 80.1 80.0 - 100.0 fL 02/06/2025 10:20 AM EDT [facility] MCH 26.0 26.0 - 34.0 pg 02/06/2025 10:20 AM EDT [facility] MCHC 32.5 30.7 - 35.5 g/dL 02/06/2025 10:20 AM EDT [facility] RDW 13.9 <=14.9 % 02/06/2025 10:20 AM EDT [facility] Platelet 239 155 - 369 x10(3)/mcL 02/06/2025 10:20 AM EDT [facility] MPV 11.4 8.8 - 12.5 fL 02/06/2025 10:20 AM EDT [facility] Blood VENOUS BLOOD / Unknown Venipuncture / Unknown 02/06/2025 10:01 AM EDT 02/06/2025 10:06 AM EDT Zoraida Esteban MD HEMATOLOGY ORDERABLES Final Resu lt Performing Organization Address [facility] Co de Phone Number [facility] , [place] [address] * NT PROBNP (02/06/2025 10:01 AM EDT) NT Pro-BNP 36 <=353 pg/mL 02/06/2025 10:35 AM EDT [email or web address] Blood VENOUS BLOOD / Unknown Venipuncture / Unknown 02/06/2025 10:01 AM EDT 02/06/2025 10:06 AM EDT Narrative [email or web address] - 02/06/2025 10:35 AM EDT An NT pro-BNP level less than 300 pg/mL in any patient, regardless of age, effectively rules out acute CHF with a 99% negative predictive value. Ingestion of delano doses of biotin (>5 mg/day) taken within 8 hours of drawing blood sample can interfere with this immunoassay test. Demi Mcneil APRN CHEMISTRY ORDERABLES Final Result Performing Organization Address [facility] Co de Phone Number [facility] , [place] [address] * [facility] CAROTID DUPLEX BILATERAL (02/05/2025 3:47 PM EDT) Anatomical Region Laterality Modality Vascular, Head, Neck Vascular Im aging 02/05/2025 3:26 PM EDT Impressions 02/05/2025 6:00 PM EDT Conclusions * The right internal carotid artery demonstrates 1-39% mild stenosis. * The left internal carotid artery demonstrates 1-39% mild stenosis. * The bilateral vertebral arteries are patent with antegrade flow. Narrative Procedure Note Daniele Santiago DO - 02/05/2025 IMPRESSION Conclusions * The right internal carotid artery demonstrates 1-39% mild stenosis. * The left internal carotid artery demonstrates 1-39% mild stenosis. * The bilateral vertebral arteries are patent with antegrade flow. Juventino Santana MD IMG VASCULAR ORDERABLES Final R esult * EC ECHOCARDIOGRAM LIMITED (02/05/2025 3:37 PM EDT) MITRAL REGURGITATION no PYRAMIS AORTIC STENOSIS no PYRAMIS LV DIASTOLIC PLAX [id number] cm PYRAMIS Anatomical Region Laterality Modality Electrocardiogra phy 02/05/2025 2:47 PM EDT Impressions 02/05/2025 7:35 PM EDT Conclusions * Technically difficult study due to poor patient cooperation. * Patient ended exam prematurely due to sensitivity to probe pressure. * Left ventricular systolic function is mildly reduced with an estimated ejection fraction of grossly 45%. Segmental wall motion evaluation is limited but there is likely hypokinesis of the inferoseptal wall, inferior wall and inferolateral wall. * There is no increased left ventricular wall thickness. * Left ventricular chamber dimension is normal. * Left atrium is grossly normal. * Right atrial chamber dimension is normal. * Right ventricular chamber dimension is normal. * Right ventricular systolic function is normal. * There is mild mitral valve stenosis with a peak velocity of 188 cm/s and a mean gradient of 5 mmHg. Narrative Procedure Note Campos Liz MD - 02/05/2025 IMPRESSION Conclusions * Technically difficult study due to poor patient cooperation. * Patient ended exam prematurely due to sensitivity to probe pressure. * Left ventricular systolic function is mildly reduced with anestimated ejection fraction of grossly 45%. Segmental wall motion evaluation islimited but there is likely hypokinesis of the inferoseptal wall, inferior walland inferolateral wall. * There is no increased left ventricular wall thickness. * Left ventricular chamber dimension is normal. * Left atrium is grossly normal. * Right atrial chamber dimension is normal. * Right ventricular chamber dimension is normal. * Right ventricular systolic function is normal. * There is mild mitral valve stenosis with a peak velocity of 188 cm/sand a mean gradient of 5 mmHg. Karen R Nikolski DO IMG ECHO ORDERABLES Final Result * MRI BRAIN WO CONTRAST (02/05/2025 12:00 AM EDT) Anatomical Region Laterality Modality Head Magnetic Resonan ce 02/05/2025 Impressions 02/05/2025 12:12 AM EDT 1. Multifocal areas of restricted diffusion consistent with acute ischemia. Largest area is in the posterior right temporal lobe. 2. Multifocal areas of encephalomalacia from previous infarcts. - Note: Radiology results need to be interpreted within a comprehensive clinical context. If you have questions about the radiology report, please contact the office of the ordering clinician. Narrative 02/05/2025 12:12 AM EDT MRI BRAIN WITHOUT CONTRAST, 02/05/2025 12:00 AM CLINICAL HISTORY: -ams. COMPARISON: CT brain February 01, 2025 PROCEDURE COMMENTS: Multiplanar multiecho MR imaging of the brain including standard spin echo and diffusion sequences. FINDINGS: There are multifocal areas of abnormal restricted diffusion. Largest area is in the posterior right temporal lobe. There is additional smaller area of restricted diffusion in the mesial mid left temporal lobe along the inferior margin, as well as small focus of subcortical restricted white matter diffusion in the left parietal lobe. There is additional restricted diffusion in the left occipital lobe, subcortical. There are punctate areas of additional restricted diffusion in the right and left frontal lobes, small. There is multifocal areas of encephalomalacia from previous infarct. Cerebral and cerebellar atrophic changes are present. No midline shift. No acute significant extra-axial fluid collections. No hemosiderin effect identified to indicate hemorrhagic components. Included portions of the paranasal sinuses, mastoids, and orbits unremarkable. Procedure Note Miky Pace MD - 02/05/2025 MRI BRAIN WITHOUT CONTRAST, 02/05/2025 12:00 AM CLINICAL HISTORY: -ams. COMPARISON: CT brain February 01, 2025 PROCEDURE COMMENTS: Multiplanar multiecho MR imaging of the brainincluding standard spin echo and diffusion sequences. FINDINGS: There are multifocal areas of abnormal restricted diffusion. Largest areais in the posterior right temporal lobe. There is additional smaller area of restricted diffusion in the mesial mid left temporal lobe along theinferior margin, as well as small focus of subcortical restricted white matterdiffusion in the left parietal lobe. There is additional restricted diffusion in theleft occipital lobe, subcortical. There are punctate areas of additional restricted diffusion in the rightand left frontal lobes, small. There is multifocal areas of encephalomalacia from previous infarct.Cerebral and cerebellar atrophic changes are present. No midline shift. No acute significant extra-axial fluid collections. No hemosiderin effectidentified to indicate hemorrhagic components. Included portions of the paranasal sinuses, mastoids, and orbitsunremarkable. IMPRESSION: 1. Multifocal areas of restricted diffusion consistent with acuteischemia. Largest area is in the posterior right temporal lobe. 2. Multifocal areas of encephalomalacia from previous infarcts. - Note: Radiology results need to be interpreted within a comprehensiveclinical context. If you have questions about the radiology report, please contactthe office of the ordering clinician. us Zoraida Esteban MD IM MRI ORDERABLES Final Result * XR ABDOMEN AP (02/04/2025 9:23 PM EDT) Anatomical Region Laterality Modality Abdomen Radio Fluoroscop y 02/04/2025 9:23 PM EDT Impressions 02/04/2025 9:37 PM EDT No metallic foreign body or instrumentation. - Note: Radiology results need to be interpreted within a comprehensive clinical context. If you have questions about the radiology report, please contact the office of the ordering clinician. Narrative 02/04/2025 9:37 PM EDT CR, ABDOMEN AP, 02/04/2025 9:23 PM CLINICAL HISTORY: -KUB- r/o metal implants, foreign body for MRI COMPARISON: 11/30/2024 PROCEDURE COMMENTS: AP view(s) of the abdomen per protocol. FINDINGS: Nonspecific, nonobstructive bowel gas pattern. No pathologic calcification. Skeleton grossly intact.] Cystectomy clips noted in the right upper quadrant. No metallic foreign body or instrumentation. Procedure Note Lionel Freitas MD - 02/04/2025 CR, ABDOMEN AP, 02/04/2025 9:23 PM CLINICAL HISTORY: -KUB- r/o metal implants, foreign body for MRI COMPARISON: 11/30/2024 PROCEDURE COMMENTS: AP view(s) of the abdomen per protocol. FINDINGS: Nonspecific, nonobstructive bowel gas pattern. No pathologiccalcification. Skeleton grossly intact.] Cystectomy clips noted in the right upperquadrant. No metallic foreign body or instrumentation. IMPRESSION: No metallic foreign body or instrumentation. - Note: Radiology results need to be interpreted within a comprehensiveclinical context. If you have questions about the radiology report, please contactthe office of the ordering clinician. us Letitia Brown OXYGEN THERAPIST IMG DIAGNOSTIC IMAGING ORDERA BLES Final Result * (ABNORMAL) CBC WITH DIFF (02/04/2025 12:51 PM EDT) Only the most recent of5 resultswithin the time period is included. WBC 9.7 3.7 - 10.3 x10(3)/mcL 02/04/2025 1:03 PM EDT [facility] RBC 5.57(H) 3.90 - 5.20 x10(6)/mcL 02/04/2025 1:03 PM EDT [facility] Hgb 14.5 11.2 - 15.7 g/dL 02/04/2025 1:03 PM EDT [facility] Hct 44.2 34.0 - 45.0 % 02/04/2025 1:03 PM EDT [facility] MCV 79.4(L) 80.0 - 100.0 fL 02/04/2025 1:03 PM EDT [facility] MCH 26.0 26.0 - 34.0 pg 02/04/2025 1:03 PM EDT [facility] MCHC 32.8 30.7 - 35.5 g/dL 02/04/2025 1:03 PM EDT [facility] RDW 13.9 <=14.9 % 02/04/2025 1:03 PM EDT [facility] Platelet 185 155 - 369 x10(3)/mcL 02/04/2025 1:03 PM EDT [facility] MPV 11.7 8.8 - 12.5 fL 02/04/2025 1:03 PM EDT [facility] Neut Percent 65.5 % 02/04/2025 1:03 PM EDT [facility] Comment:Neutrophils equals s egs plus bands Imm Gran% 0.7 % 02/04/2025 1:03 PM EDT [facility] Comment:Automated count of m etamyelocytes, myelocytes and promyelocytes. Lymph Percent 23.5 % 02/04/2025 1:03 PM EDT [facility] Barber Percent 8.1 % 02/04/2025 1:03 PM EDT [facility] Eos Percent 1.2 % 02/04/2025 1:03 PM EDT [facility] Baso Percent 1.0 % 02/04/2025 1:03 PM EDT [facility] Neut # 6.3(H) 1.6 - 6.1 x10(3)/[facility] 02/04/2025 1:03 PM EDT [facility] Comment:Neutrophils equals s egs plus bands IMMGRAN# 0.1 0.0 - 0.1 x10(3)/mcL 02/04/2025 1:03 PM EDT [facility] Comment:Automated count of m etamyelocytes, myelocytes and promyelocytes. An absolute IG <0.1 is reported as 0.0. Lymph # 2.3 1.2 - 3.9 x10(3)/mcL 02/04/2025 1:03 PM EDT [facility] Barber # 0.8 0.3 - 0.9 x10(3)/mcL 02/04/2025 1:03 PM EDT [facility] Eos# 0.1 0.0 - 0.5 x10(3)/[facility] 02/04/2025 1:03 PM EDT [facility] Baso # 0.1 0.0 - 0.1 x10(3)/[facility] 02/04/2025 1:03 PM EDT [facility] Blood VENOUS BLOOD / Unknown Venipuncture / Unknown 02/04/2025 12:51 PM EDT 02/04/2025 12:56 PM EDT us Zoraida Esteban MD HEMATOLOGY ORDERABLES Final Resu lt [facility] [address] [facility] , [place] [address] * LACTIC ACID (02/03/2025 12:42 PM EDT) Only the most recent of2 resultswithin the time period is included. Lactic Acid 1.9 0.5 - 1.9 mmol/L 02/03/2025 1:09 PM EDT [facility] Blood VENOUS BLOOD / Unknown Venipuncture / Unknown 02/03/2025 12:42 PM EDT 02/03/2025 12:48 PM EDT us Zoraida Esteban MD CHEMISTRY ORDERABLES Final Resul t [facility] [address] [place] [address] , [place] [address] * SCANNED EKG (02/03/2025 9:37 AM EDT) Anatomical Region Laterality Modality Other 02/03/2025 9:37 AM EDT us Unknown Provider IMG ECG ORDERABLES Final Result * US RENAL AND BLADDER (02/02/2025 1:24 PM EDT) Anatomical Region Laterality Modality Abdomen, Pelvis Ultrasound 02/02/2025 1:24 PM EDT Impressions 02/02/2025 1:30 PM EDT Right-sided pelvocaliectasis is similar to 11/30/2024. No evidence of active obstructive uropathy or other acute finding. - Note: Radiology results need to be interpreted within a comprehensive clinical context. If you have questions about the radiology report, please contact the office of the ordering clinician. Narrative 02/02/2025 1:30 PM EDT US KIDNEYS AND BLADDER, 02/02/2025 1:24 PM CLINICAL HISTORY: -[place]. COMPARISON: 11/30/2024 PROCEDURE COMMENTS: Routine sonographic evaluation of the kidneys and bladder with public service representative images and youth director notes sent to PACS for radiologist review. FINDINGS: RIGHT: 8.9 x 5.2 x 4.2 cm. No vera hydronephrosis, solid-appearing mass, or shadowing stone. Right-sided pelvocaliectasis is similar to 11/30/2024. LEFT: 10.5 x 4.9 x 4.6 cm. No hydronephrosis, solid-appearing mass, or shadowing stone. 3.5 cm upper pole simple cyst. PELVIS: No bladder mass identified. Procedure Note Andrew Monterroso MD - 02/02/2025 US KIDNEYS AND BLADDER, 02/02/2025 1:24 PM CLINICAL HISTORY: -ge[place]. COMPARISON: 11/30/2024 PROCEDURE COMMENTS: Routine sonographic evaluation of the kidneys andbladder with public service representative images and youth director notes sent to PACS forradiologist review. FINDINGS: RIGHT: 8.9 x 5.2 x 4.2 cm. No vera hydronephrosis, solid-appearingmass, or shadowing stone. Right-sided pelvocaliectasis is similar to 11/30/2024. LEFT: 10.5 x 4.9 x 4.6 cm. No hydronephrosis, solid-appearing mass, or shadowing stone. 3.5 cm upper pole simple cyst. PELVIS: No bladder mass identified. IMPRESSION: Right-sided pelvocaliectasis is similar to 11/30/2024. No evidence of active obstructive uropathy or other acute finding. - Note: Radiology results need to be interpreted within a comprehensiveclinical context. If you have questions about the radiology report, please contactthe office of the ordering clinician. Zoraida Esteban MD [facility] US ORDERABLES Final Result * VITAMIN B12/ FOLIC ACID (02/02/2025 11:23 AM EDT) Vitamin B12 546 232 - 1,245 pg/mL 02/02/2025 12:45 PM EDT [facility] [employer] Folate 12.90 >=4.80 ng/mL 02/02/2025 12:45 PM EDT [facility] Blood VENOUS BLOOD / Unknown Venipuncture / Unknown 02/02/2025 11:23 AM EDT 02/02/2025 11:30 AM EDT Narrative [facility] - 02/02/2025 12:45 PM EDT Ingestion of delano doses of biotin (>5 mg/day) taken within 8 hours of drawing blood sample can interfere with this immunoassay test. us Zoraida Esteban MD CHEMISTRY ORDERABLES Final Resul t Performing Organization Address [facility] [employer] Phone Number [facility] [address] [place] [address] , [place] [address] * THYROID STIMULATING HORMONE (02/02/2025 11:23 AM EDT) TSH 0.936 0.270 - 4.200 mcIU/mL 02/02/2025 12:34 PM EDT [facility] Blood VENOUS BLOOD / Unknown Venipuncture / Unknown 02/02/2025 11:23 AM EDT 02/02/2025 11:30 AM EDT Narrative [facility] - 02/02/2025 12:34 PM EDT Ingestion of delano doses of biotin (>5 mg/day) taken within 8 hours of drawing blood sample can interfere with this immunoassay test. us Zoraida Esteban MD CHEMISTRY ORDERABLES Final Resul t Performing Organization Address [facility] [employer] Phone Number [facility] [address] [place] [address] , [place] [address] * (ABNORMAL) HEMOGLOBIN A1C (02/02/2025 11:23 AM EDT) Hgb A1C 10.9(H) 4.2 - 5.6 % 02/02/2025 1:03 PM EDT [facility] Est. Avg Glucose 266 mg/dL 02/02/2025 1:03 PM EDT [facility] Blood VENOUS BLOOD / Unknown Venipuncture / Unknown 02/02/2025 11:23 AM EDT 02/02/2025 11:30 AM EDT Narrative [facility] - 02/02/2025 1:03 PM EDT REFERENCE RANGE: Normal: 4.0-5.6% Pre-diabetes: 5.7-6.4% Provisional diagnosis of diabetes: >6.4% Hgb F>10% and anything which shortens red cell survival, such as hemolytic anemia, or unstable hemoglobin variants such as HbSS, HbSC, or HbCC, will lower the HbA1c value associated with a given level of glycemic control. us Zoraida Esteban MD CHEMISTRY ORDERABLES Final Resul t Performing Organization Address [facility] [employer] Phone Number [facility] [address], [place] [address] * AMMONIA LEVEL (02/02/2025 11:23 AM EDT) Pathologist [facility] Ammonia 14 11 - 51 mcmol/L 02/02/2025 12:10 PM EDT [facility] Blood VENOUS BLOOD / Unknown Venipuncture / Unknown 02/02/2025 11:23 AM EDT 02/02/2025 11:45 AM EDT us Zoraida Esteban MD CHEMISTRY ORDERABLES Final Resul t Performing Organization Address [facility] de Phone Number [facility] [address] [id number] * (ABNORMAL) LIPID SCREEN (02/02/2025 11:23 AM EDT) Pathologist [facility] Cholesterol 227(H) <200 mg/dL 02/02/2025 12:34 PM EDT [facility] Comment: < 200 Desirable 200 - 239 Borderline High >= 240 High Triglyceride 338(H) <150 mg/dL 02/02/2025 12:34 PM EDT [facility] Comment: < 150 Normal 150 - 199 Borderline High 200 - 499 High >= 500 Very High HDL 42 >=40 mg/dL 02/02/2025 12:34 PM EDT [facility] Comment: > 60 Optimal 40 - 60 Acceptable < 40 Low LDL Calculated 125(H) <100 mg/dL 02/02/2025 12:34 PM EDT [facility] Comment: < 100 Optimal 100 - 129 Near or above optimal 130 - 159 Borderline High 160 - 189 High >= 190 Very High The National Institutes of Health (NIH) equation is used for all lipid panels that report calculated LDL (LDL-C). Non-HDL-C Calculated 185(H) <=129 mg/dL 02/02/2025 12:34 PM EDT [email or web address] Comment: <130 Desirable 130-159 Above Desirable 160-189 Borderline High 190-219 High >= 220 Very High Fasting Specimen? Yes None 025 12:34 PM EDT [email or web address] Blood VENOUS BLOOD / Unknown Venipuncture / Unknown 02/02/2025 11:23 AM EDT 02/02/2025 11:30 AM EDT Zoraida Esteban MD CHEMISTRY ORDERABLES Final Resul t Performing Organization Address City/[facility]/ZIP Co de Phone Number [email or web address] [address] , [place] [address] * BLOOD CULTURE (NO STAIN) (02/02/2025 11:22 AM EDT) Only the most recent of2 resultswithin the time period is included. Culture Result No Growth at 120 hours. BLOOD CULTURE (NO STAIN) 02/07/2025 1:01 PM EDT [facility] Blood VENOUS BLOOD / Unknown Venipuncture / Unknown 02/02/2025 11:22 AM EDT 02/02/2025 11:30 AM EDT us Zoraida Esteban MD MICROBIOLOGY - GENERAL ORDERABLE S Final Result Performing Organization Address City/[facility]/ZIP Co de Phone Number [facility] , [place] [address] * (ABNORMAL) REPEAT LACTIC ACID (02/01/2025 6:52 PM EDT) Lactic Acid 2.5(H) 0.5 - 1.9 mmol/L 02/01/2025 7:11 PM EDT [facility] Blood VENOUS BLOOD / Unknown Venipuncture / Unknown 02/01/2025 6:52 PM EDT 02/01/2025 6:54 PM EDT Kosta Colon MD CHEMISTRY ORDERABLES Final Result [facility] [address] [place], [place] [id number] * (ABNORMAL) RAPID DRUGS OF ABUSE W/REFLEX TO CONFIRMATION, UR(COV/DBN/GRT) (02/01/2025 4:59 PM EDT) Cannabinoid Rapid Absent Absent 025 5:19 PM EDT [facility] Cocaine Rapid Absent Absent 02/01/2025 5:19 PM EDT [facility] Methamphetamine Rapid Absent Absent 02/01/2025 5:19 PM EDT [facility] Opiate Rapid Absent Absent 02/01/2025 5:19 PM EDT [facility] Amphetamine Rapid Absent Absent 025 5:19 PM EDT [facility] Benzodiazepines Rapid Presumptive Pos(A) Absent 02/01/2025 5:19 PM EDT [facility] Tricyclic Rapid Presumptive Pos(A) Absent 02/01/2025 5:19 PM EDT [facility] Methadone Rapid Absent Absent 5 5:19 PM EDT [facility] Barbiturate Rapid Absent Absent 025 5:19 PM EDT [facility] Oxycodone Rapid Absent Absent 5 5:19 PM EDT [facility] BUPRENORPHINE RAPID Absent Absent 02/01/2025 5:19 PM EDT [facility] Urine STRUCTURE OF URINARY TRACT PROPER / Unknown 02/01/2025 4:59 PM EDT 02/01/2025 5:07 PM EDT Narrative [facility] - 02/01/2025 5:19 PM EDT These drug classes have been qualitatively screened by immunoassay and are for medical purposes only. Results should not be used for non-medical purposes. Results reported as presumptive positive will be sent for confirmation. Due to possible factors, such as, dilute/adulterated urine, concentration of drug/metabolite being below the cut-off, or antibody specificity of test reagent, a negative result does not rule out drug use. These results are only valid for urine specimens. Any contamination with vaginal pool/amniotic fluid could cause erroneous results. Positive TCA tests will not automatically be sent for confirmation. If needed, call the lab to have these added on within 4 days of collection Kosta Colon MD URINE ORDERABLES Final Resu lt [facility] [address] [place] [address] * DRUG CONFIRMATION, BENZODIAZEPINES - URINE (02/01/2025 4:59 PM EDT) Diazepam <10 Cutoff 10 ng/mL ng/mL 02/03/2025 1:34 PM EDT [facility] Oxazepam <50 Cutoff 50 ng/mL ng/mL 02/03/2025 1:34 PM EDT [facility] Oxazepam Glucuronide <50 Cutoff 50 ng/mL ng/mL 02/03/2025 1:34 PM EDT [facility] Temazepam <50 Cutoff 50 ng/mL ng/mL 02/03/2025 1:34 PM EDT [facility] Temazepam Glucuronide <50 Cutoff 50 ng/mL ng/mL 02/03/2025 1:34 PM EDT [facility] Nordiazepam <25 Cutoff 25 ng/mL ng/mL 02/03/2025 1:34 PM EDT [facility] Lorazepam <50 Cutoff 50 ng/mL ng/mL 02/03/2025 1:34 PM EDT [facility] Lorazepam Glucuronide <50 Cutoff 50 ng/mL ng/mL 02/03/2025 1:34 PM EDT [facility] Alprazolam <8 Cutoff 8 ng/mL ng/mL 02/03/2025 1:34 PM EDT [facility] alpha-Hydroxyalprazolam <25 Cutoff 2 5 ng/mL ng/mL 02/03/2025 1:34 PM EDT [facility] Clonazepam <10 Cutoff 10 ng/mL ng/mL 02/03/2025 1:34 PM EDT [facility] 7-Aminoclonazepam <25 Cutoff 25 ng/mL ng/mL 02/03/2025 1:34 PM EDT [facility] Midazolam <50 Cutoff 50 ng/mL ng/mL 02/03/2025 1:34 PM EDT [facility] alpha-hydroxymidazolam <50 Cutoff 50 ng/mL ng/mL 02/03/2025 1:34 PM EDT [facility] Triazolam <50 Cutoff 50 ng/mL ng/mL 02/03/2025 1:34 PM EDT [facility] alpha-hydroxytriazolam <50 Cutoff 50 ng/mL ng/mL 02/03/2025 1:34 PM EDT [facility] Flunitrazepam <50 Cutoff 50 ng/mL ng/mL 02/03/2025 1:34 PM EDT [facility] 7-Aminoflunitrazepam <50 Cutoff 50 ng/mL ng/mL 02/03/2025 1:34 PM EDT [facility] Flurazepam <50 Cutoff 50 ng/mL ng/mL 02/03/2025 1:34 PM EDT [facility] Hydroxyethylflurazepam <50 Cutoff 50 ng/mL ng/mL 02/03/2025 1:34 PM EDT [facility] Urine STRUCTURE OF URINARY TRACT PROPER / Unknown 02/01/2025 4:59 PM EDT 02/01/2025 5:07 PM EDT us Kosta Colon MD URINE ORDERABLES Final Resu lt [facility] [address] [facility] , [place] [address] * CT HEAD WO CONTRAST (02/01/2025 4:05 PM EDT) Anatomical Region Laterality Modality Head Computed Tomogra phy 02/01/2025 4:05 PM EDT Impressions 02/01/2025 4:13 PM EDT No acute intracranial abnormality. Multifocal remote infarcts. - Note: Radiology results need to be interpreted within a comprehensive clinical context. If you have questions about the radiology report, please contact the office of the ordering clinician. Narrative 02/01/2025 4:[address] HEAD WO CONTRAST 02/01/2025 4:05 PM CLINICAL HISTORY: -Altered mental status. COMPARISON: CT head without IV contrast 11/22/2023 PROCEDURE COMMENTS: Routine noncontrast head CT with multiplanar reconstructions. Dose 1 : CT DLP Total : 785.24 mGycm DLP Spiral Max : 781.07 mGycm Maximum CTDI Vol : 47.67 mGy FINDINGS: HEMORRHAGE: No evidence of acute intracranial hemorrhage. MASS EFFECT / MASS LESION: No mass effect. There is no evidence of an intracranial mass or extraaxial fluid collection. ACUTE ISCHEMIC CHANGE: None. CHRONIC ISCHEMIC CHANGE: Patchy foci of low attenuation within subcortical and periventricular white matter are nonspecific, but most suggestive of the sequela of mild chronic microvascular ischemia. Multifocal areas of scattered encephalomalacia compatible with remote infarcts are redemonstrated including remote infarcts involving bilateral parietal lobes, bilateral temporal lobes, bilateral occipital lobes, and right cerebellum. PARENCHYMA: There is no significant volume loss. The brain parenchyma is otherwise within normal limits for age. VENTRICLES: Normal caliber and morphology. OTHER: The visualized calvarium, skull base, orbits and extracranial soft tissues are normal. The visualized paranasal sinuses and mastoid air cells are clear. Procedure Note Presley Kirkpatrick MD - 02/01/2025 CT HEAD WO CONTRAST 02/01/2025 4:05 PM CLINICAL HISTORY: -Altered mental status. COMPARISON: CT head without IV contrast 11/22/2023 PROCEDURE COMMENTS: Routine noncontrast head CT with multiplanar reconstructions. Dose 1 : CT DLP Total : 785.24 mGycm DLP Spiral Max : 781.07 mGycm Maximum CTDI Vol : 47.67 mGy FINDINGS: HEMORRHAGE: No evidence of acute intracranial hemorrhage. MASS EFFECT / MASS LESION: No mass effect. There is no evidence of an intracranial mass or extraaxial fluid collection. ACUTE ISCHEMIC CHANGE: None. CHRONIC ISCHEMIC CHANGE: Patchy foci of low attenuation within subcorticaland periventricular white matter are nonspecific, but most suggestive of thesequela of mild chronic microvascular ischemia. Multifocal areas of scattered encephalomalacia compatible with remote infarcts are redemonstratedincluding remote infarcts involving bilateral parietal lobes, bilateral temporallobes, bilateral occipital lobes, and right cerebellum. PARENCHYMA: There is no significant volume loss. The brain parenchymais otherwise within normal limits for age. VENTRICLES: Normal caliber and morphology. OTHER: The visualized calvarium, skull base, orbits and extracranialsoft tissues are normal. The visualized paranasal sinuses and mastoid air cellsare clear. IMPRESSION: No acute intracranial abnormality. Multifocal remote infarcts. - Note: Radiology results need to be interpreted within a comprehensiveclinical context. If you have questions about the radiology report, please contactthe office of the ordering clinician. Kosta Colon MD IMG CT ORDERABLES Final Res ult * (ABNORMAL) BLOOD GAS, VENOUS (02/01/2025 3:46 PM EDT) pH Venous 7.32 7.32 - 7.42 pH 02/01/2025 3:55 PM EDT [facility] pCO2 Venous 49 41 - 51 mmHg 02/01/2025 3:55 PM EDT [facility] pO2 Venous <30 25 - 40 mmHg 02/01/2025 3:55 PM EDT [facility] Comment:Interpret with cauti on. Not recommended to evaluate patient's oxygenation status. Base Excess Cameron -1.5 mmol/L 3:55 PM EDT [facility] Hco3 Venous 25.2 24.0 - 28.0 mmol/L 02/01/2025 3:55 PM EDT [facility] CO2 Total Cameron 52(H) 25 - 29 mmol/L 02/01/2025 3:55 PM EDT [facility] O2 Sat. Venous 44.1 40.0 - 70.0 % 02/01/2025 3:55 PM EDT [facility] Inspired O2 ra 02/01/2025 3:55 PM EDT [facility] Blood VENOUS BLOOD / Unknown Venipuncture / Unknown 02/01/2025 3:46 PM EDT 02/01/2025 3:51 PM EDT Kosta Colon MD CHEMISTRY ORDERABLES Final Result [facility] [address] [place], [place] [id number] * PROCALCITONIN (02/01/2025 3:46 PM EDT) [facility] Procalcitonin 0.08 <=0.49 ng/mL 02/01/2025 7:01 PM EDT [facility] Blood VENOUS BLOOD / Unknown Venipuncture / Unknown 02/01/2025 3:46 PM EDT 02/01/2025 3:50 PM EDT Narrative [email or web address] - 02/01/2025 7:01 PM EDT Procalcitonin <0.50 ng/mL: Procalcitonin levels below 0.50 ng/mL on the first day of ICU admission represent a low risk for progression to severe sepsis and/or septic shock Procalcitonin >=0.50 ng/mL and <=2.00 ng/mL: If the procalcitonin measurement is performed shortly after the systemic infection process has started (usually less than 6 hours), this value may still be low. As various non-infectious conditions are known to induce procalcitonin as well, procalcitonin levels between 0.50 ng/mL and 2.00 ng/mL should be reviewed carefully to take into account the specific clinical background and condition(s) of the patient. Procalcitonin >2.00 ng/mL: Procalcitonin levels above 2.00 ng/mL on the first day of ICU admission represent a high risk for progression to severe sepsis and/or septic shock. us Kosta Colon MD CHEMISTRY ORDERABLES Final Result [facility] [address] [facility] , [address] [place] [id number] * ALCOHOL MEDICAL (02/01/2025 3:46 PM EDT) [facility] Alcohol Medical <10 <=10 mg/dL 4:05 PM EDT [facility] Comment: 50-100 mg/dL - Flushing, slowing of reflexes, impaired visual acuity > 100 mg/dL - Depression of BREAST BUFFER > 400 mg/dL - Fatalities reported Blood VENOUS BLOOD / Unknown Venipuncture / Unknown 02/01/2025 3:46 PM EDT 02/01/2025 3:50 PM EDT us Kosta Colon MD CHEMISTRY ORDERABLES Final Result [facility] [address] [place] [address] * (ABNORMAL) COMPREHENSIVE METABOLIC PANEL (02/01/2025 3:46 PM EDT) Sodium 133(L) 136 - 145 mmol/L 02/01/2025 4:07 PM EDT [facility] Potassium 4.9 3.5 - 5.0 mmol/L 02/01/2025 4:07 PM EDT [facility] Chloride 99 98 - 107 mmol/L 02/01/2025 4:07 PM EDT [facility] Total CO2 21(L) 22 - 29 mmol/L 02/01/2025 4:07 PM T [facility] Anion Gap 13 7 - 16 mmol/L 02/01/2025 4:07 PM T [facility] Calcium 9.1 8.8 - 10.4 mg/dL 02/01/2025 4:07 PM T [facility] Glucose Lvl 415(H) 70 - 99 mg/dL 02/01/2025 4:07 PM T [facility] BUN 17 8 - 23 mg/dL 02/01/2025 4:07 PM T [facility] Creatinine 1.43(H) 0.51 - 1.30 mg/dL 02/01/2025 4:07 PM T [facility] Albumin 3.9 3.2 - 4.6 gm/dL 02/01/2025 4:07 PM T [facility] Total Protein 6.7 6.4 - 8.3 gm/dL 02/01/2025 4:07 PM EDT [facility] Bili Total 0.8 0.2 - 1.3 mg/dL 02/01/2025 4:07 PM T [facility] ALT 27 <=41 U/L 02/01/2025 4:07 PM T [facility] AST 24 <=40 U/L 02/01/2025 4:07 PM T [facility] Alk Phos 149(H) 36 - 123 U/L 02/01/2025 4:07 PM EDT [facility] eGFR (CKD-EPIcr 2020) 40(L) >=60 mL/min/1.7 3 m2 02/01/2025 4:07 PM EDT [facility] Comment:Estimated GFR was ca lculated using the CKD-EPIcr (2020) equation refit without race. The equation is recommended by the National Kid[employer] - [place] [employer]ph[employer] Task Force. Blood VENOUS BLOOD / Unknown Venipuncture / Unknown 02/01/2025 3:46 PM EDT 02/01/2025 3:50 PM EDT us Kosta Colon MD CHEMISTRY ORDERABLES Final Result [facility] [address] [place] [address] * XR CHEST AP PORTABLE (02/01/2025 3:42 PM EDT) Anatomical Region Laterality Modality Chest Radiographic Nelsy ging 02/01/2025 3:42 PM EDT Impressions 02/01/2025 3:58 PM EDT Low lung volumes otherwise without acute pulmonary finding. - Note: Radiology results need to be interpreted within a comprehensive clinical context. If you have questions about the radiology report, please contact the office of the ordering clinician. Narrative 02/01/2025 3:58 PM EDT XR CHEST AP PORTABLE, 02/01/2025 3:42 PM CLINICAL HISTORY: -Altered mental status COMPARISON: 11/30/2024 PROCEDURE COMMENTS: AP portable technique. FINDINGS: Support devices: No visible support devices. Heart and mediastinal contours within normal limits for technique. No active failure, pneumonia, or visible effusion. No visible pneumothorax. Low lung volumes. Procedure Note Michael Foster MD - 02/01/2025 XR CHEST AP PORTABLE, 02/01/2025 3:42 PM CLINICAL HISTORY: -Altered mental status COMPARISON: 11/30/2024 PROCEDURE COMMENTS: AP portable technique. FINDINGS: Support devices: No visible support devices. Heart and mediastinal contours within normal limits for technique. Noactive failure, pneumonia, or visible effusion. No visible pneumothorax. Lowlung volumes. IMPRESSION: Low lung volumes otherwise without acute pulmonary finding. - Note: Radiology results need to be interpreted within a comprehensiveclinical context. If you have questions about the radiology report, please contactthe office of the ordering clinician. us Kosta Colon MD IMG DIAGNOSTIC IMAGING ORDE TYRELL Final Result * EK EKG 12 LEAD (02/01/2025 3:33 PM EDT) Anatomical Region Laterality Modality Electrocardiogra phy 02/01/2025 4:53 PM EDT Impressions 02/02/2025 12:[address] 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1955 Requested By: KOSTA CRUZ Order Number: [id number] Reading MD: Campos Staton MD Measurements Intervals Ione Rate: 95 P: 47 AR: 220 QRS: -20 QRSD: 78 T: 33 QT: 363 QTc: 458 Interpretive Statements SINUS RHYTHM WITH FIRST DEGREE AV BLOCK INFERIOR MYOCARDIAL INFARCTION, OF INDETERMINATE AGE WITH POSTERIOR EXTENSION Electronically Signed On 02-02-2025 12:36:09 EDT by Campos Staton MD Narrative Procedure Note Campos Staton MD - 02/02/2025 IMPRESSION MorganRebekah Domingo Ga Test Date: 2025-02-01 Pat Name: [facility] Department: DEPID Room: 10 Gender: Female Wireless Sales Expert: [facility] : 1955 Requested By: KOSTA CRUZ Order Number: [id number] Reading MD: Campos Staton MD Measurements Intervals Ione Rate: 95 P: 47 AR: 220 QRS: -20 QRSD: 78 T: 33 QT: 363 QTc: 458 Interpretive Statements SINUS RHYTHM WITH FIRST DEGREE AV BLOCK INFERIOR MYOCARDIAL INFARCTION, OF INDETERMINATE AGE WITH POSTERIOREXTENSION Electronically Signed On 02-02-2025 12:36:09 EDT by Campos Staton MD Kosta Colon MD IMG ECG ORDERABLES Final Re sult * (ABNORMAL) SEP URINALYSIS POC (01/30/2025 10:09 AM EDT) UA Color POC Yellow Color 01/30/2025 10:11 AM EDT [facility] UA Appear POC Clear Clear 01/30/2025 10:11 AM EDT [facility] [place] UA Gluc POC >=1000(A) Negative mg/dL 01/30/2025 10:11 AM EDT [facility] UA Bili POC Negative Negative 01/30/2025 10:11 AM EDT [facility] UA Ketones POC Negative Negative mg/dL 01/30/2025 10:11 AM EDT [facility] UA SG POC 1.010 1.001 - 1.035 no units 01/30/2025 10:11 AM EDT [facility] UA Blood POC Trace-Intact (A) Negative 01/30/2025 10:11 AM EDT [facility] UA pH POC 6.0 5.0 - 8.0 pH 01/30/2025 10:11 AM EDT [facility] UA Protein POC Negative Negative mg/dL 01/30/2025 10:11 AM EDT [facility] UA Urobilinogen POC 0.2 0.2, 1.0 01/30/2025 10:11 AM EDT [facility] UA Nitrite POC Positive(A) Negative 10:11 AM EDT [facility] UA Leuk Est POC Small(A) Negative 10:11 AM EDT [facility] Urine STRUCTURE OF URINARY TRACT PROPER / Unknown 01/30/2025 10:09 AM EDT 01/30/2025 10:11 AM EDT Júnior Howard DO POINT OF CARE TEST ORDERABLES F inal Result [address] [address] * COLONOSCOPY (09/11/2024 10:02 AM EST) Anatomical Region Laterality Modality Endoscopy Addenda Addendum by Darnell Babcock MD on 09/11/2024 11:09 AM EST Table formatting from the original result was not included. Findings All observed locations appeared normal. Recommendation Repeat screening colonoscopy in 10 years, due: 09/09/2034 - No findings to account for symptoms - Patient has not been taking the Miralax and instructed her to do so - If symptoms do not improve with resolution of constipation, patient instructed to contact us back for consideration of an upper endoscopy - Follow up in the office Pre-Procedure Diagnosis / Indication Abdominal distension, Bloating Post-Procedure Diagnosis Abdominal distension, Bloating Staff Staff Role Darnell Babcock MD Performing Provider Shaniqua Van RN Feed In Worker Kermit Thorpe CRNA BUDGET RECORD CLERK Medications See Anesthesia Record. Preprocedure A history and physical has been performed, and patient medication allergies have been reviewed. The patient's tolerance of previous anesthesia has been reviewed. The risks and benefits of the procedure and the sedation options and risks were discussed with the patient. All questions were answered and informed consent obtained. ASA 3 - Patient with severe systemic disease Details of the Procedure The patient underwent monitored anesthesia care, which was administered by an anesthesia professional. The patient's blood pressure, heart rate, level of consciousness, oxygen, respirations, ECG and ETCO2 were monitored throughout the procedure. A digital rectal exam was performed. The scope was introduced through the anus and advanced to the cecum. Retroflexion was performed in the rectum. Bowel prep was adequate. The patient experienced no blood loss. The procedure was not difficult. The patient tolerated the procedure well. There were no apparent adverse events. Patient provided education and educated on specific discharge instructions. Patient educated on medications given during the procedure and new medications for discharge. Patient verbalizes understanding of discharge education. Patient stable and awaiting transport for discharge. Events Procedure Events Event Event Time ENDO SCOPE IN TIME 09/11/2024 9:53 AM ENDO CECUM REACHED 09/11/2024 9:56 AM ENDO SCOPE OUT TIME 09/11/2024 10:01 AM Specimens No specimens collected Anesthesia Event Time In Patient In - Proc. Room 09:47 AM Patient Out - Proc. Room 10:02 AM us Darnell Babcock MD ENDOSCOPY PROCEDURE ORDERABL ES Edited Result - Final * HM DIABETES EYE EXAM (08/20/2024 4:31 PM EDT) Left Diabetic Retinopathy Not Present Not Present Present/Not Present SEP OFFICE Right Diabetic Retinopathy Not Present Not Present Present/Not Present SEP OFFICE Historical Provider HEALTH MAINTENANCE Edited Re sult - Final Performing Organization Address City/[facility] Co de Phone Number SEP OFFICE * ACUTE HEPATITIS PANEL (06/01/2022 6:10 PM EDT) Hep Bs Ag Non-Reacti ve Non-Reacti ve 06/01/2022 8:02 PM EDT [facility] Hep B Core IgM Non-Reacti ve Non-Reacti ve 06/01/2022 8:02 PM EDT [facility] [employer] Hep A IgM Non-Reacti ve Non-Reacti ve 06/01/2022 8:02 PM EDT [facility] [employer] Hep C Ab Non-Reacti ve Non-Reacti ve 06/01/2022 8:02 PM EDT [facility] [employer] Blood VENOUS BLOOD / Unknown Venipuncture / Unknown 06/01/2022 6:10 PM EDT 06/01/2022 6:22 PM EDT Joesph Cooper MD CHEMISTRY ORDERABLES Final Result Performing Organization Address [facility] Co de Phone Number [facility] [employer] [address] [place] [address] , [place] [address] * (ABNORMAL) MICROALBUMIN/CREATININE RATIO URINE (04/04/2022 8:19 AM EDT) Urine Microalb 23.4 mg/L 04/04/2022 3:09 PM EDT [facility] [employer] Urine Creatinine 74.6 mg/dL 04/04/2022 3:09 PM EDT [facility] Ur Microalb/Creat 31(H) 0 - 30 mg/g 04/04/2022 3:09 PM EDT [facility] [employer] Urine 04/04/2022 8:19 AM EDT 04/04/2022 8:19 AM EDT us Dina Ocasio PAINT FORMULATOR URINE ORDERABLES Final Resul t [facility] [address] [facility] , [place] [address] * MM MAMMO DIGITAL ELICIA SCREEN BILAT (09/01/2021 11:21 AM EDT) Anatomical Region Laterality Modality Breast Bilateral Mammography 09/02/2021 10:0 6 AM EDT Impressions 09/02/2021 10:06 AM EDT Negative ([id number]) ~ RECOMMENDATION: Routine screening mammogram in 1 year. ~ DISCLAIMER * Any patient with a palpable abnormality, unexplained by breast imaging, should be managed on clinical basis by the attending physician. * Breast imaging has a false negative rate of 15%. * The patient was notified by mail of the results of this examination. *The patient's information was entered into a reminder system with a target due date for the next mammogram, in accordance with the [place] [employer] and the Society of Breast Imaging recommendations. Narrative 09/02/2021 10:06 AM EDT Procedure:MM MAMMO DIGITAL ELICIA SCREEN BILAT ~ Reason for exam: screening, asymptomatic. Z12.31-Encounter for screening mammogram for malignant neoplasm of [id number] ~ MM MAMMO DIGITAL ELICIA SCREEN BILAT Bilateral CC and MLO view(s) were taken. There are scattered fibroglandular densities. Prior study comparison: Compared with prior studies the most recent being 08/22/20, 03/29/17 No suspicious mass, architectural distortion, or microcalcifications. No mammographic evidence of malignancy. ~ Procedure Note Presley Kirkpatrick MD - 09/02/2021 Procedure:MM MAMMO DIGITAL ELICIA SCREEN BILAT ~ Reason for exam: screening, asymptomatic. Z12.31-Encounter for screening mammogram for malignant neoplasm of [id number] ~ MM MAMMO DIGITAL ELICIA SCREEN BILAT Bilateral CC and MLO view(s) were taken. There are scattered fibroglandular densities. Prior study comparison: Compared with prior studies the most recentbeing 08/22/20, 03/29/17 No suspicious mass, architectural distortion, or microcalcifications. No mammographic evidence of malignancy. ~ IMPRESSION: Negative ([id number]) ~ RECOMMENDATION: Routine screening mammogram in 1 year. ~ DISCLAIMER * Any patient with a palpable abnormality, unexplained by breast imaging, should be managed on clinical basis by the attending physician. * Breast imaging has a false negative rate of 15%. * The patient was notified by mail of the results of this examination. *The patient's information was entered into a reminder system with atarget due date for the next mammogram, in accordance with the [place] [employer] and the Society of Breast Imaging recommendations. us Sheila Rock MD IM MAMMOGRAPHY ORDERABLES Fi nal Result * DX BONE DENSITY AXIAL SKELETON (03/05/2018 3:29 PM EDT) Anatomical Region Laterality Modality Dexa Scan 03/05/2018 Narrative 03/05/2018 4:25 PM EDT Indication: The patient has had a fragility fracture that requires a bone density assessment/monitoring. Study was performed on [employer]. Bone Density: Region BMD T-score Z-score AP Spine (L1-L4) 0.903 -1.3 0.2 Femoral Neck (Left) 0.539 -2.8 -1.4 Total Hip (Left) 0.720 -1.8 -0.8 Femoral Neck (Right) 0.530 -2.9 -1.5 Total Hip (Right) 0.730 -1.7 -0.7 World Health Organization criteria for BMD interpretation classify patients as: Normal (T-score at or above -1.0), Low Bone Density (T-score between -1.0 and -2.5), or Osteoporotic (T-score at or below -2.5). T Scores are reported in Postmenopausal women and in men age 50 and older. Z-scores are reported in females prior to menopause and in males younger than age 50. 10-year Fracture Risk: FRAX not reported because: Some T-score for Spine Total or Hip Total or Femoral Neck at or below -2.5 Clinical Information Provided by Patient: Has had a low trauma fracture. Parent has had a hip fracture. Has used or is currently using the following medications: Vitamin D, insulin Has had or currently has the following medical conditions: Diabetes Mellitus, Back pain, Hip pain Patient maximum height was 60. Menopause Age: 25 Has low body mass. Interpretation: Bone mineral density is in the osteoporotic range. The spine portion of the study is limited by hypertrophic changes. Medical evaluation for secondary causes of low bone density may be appropriate. A minimum of two years may be required between bone density studies due to inherent testing precision limitations. Intervals between BMD testing should be determined according to each patient's clinical status: typically one year after initiation or change of therapy is appropriate, with longer intervals once therapeutic effect is established. Reported by: Michela Stock PA-C, DEBBIE on 03/05/2018 3:25:00 PM. Raghavendra Parker DP IMG DEXA ORDERABLES Final Result from Last 3 Months or Most Recently Relevant to Health Maintenance Insurance [place] MEDICARE HMO [place] MED[place] Advance Directives For more information, please contact: [phone] * Full Code (Latest Code Status on File) Date Activated Date Inactivated Comments 02/02/2025 10:39 AM 02/07/2025 11:59 PM * Full Code Date Activated Date Inactivated Comments 11/28/2024 8:00 AM 12/02/2024 5:25 PM * Full Code Date Activated Date Inactivated Comments 11/23/2023 11:53 AM 11/24/2023 10:55 PM * Full Code Date Activated Date Inactivated Comments 11/24/2022 9:37 AM 11/29/2022 6:35 PM * Full Code Date Activated Date Inactivated Comments 08/20/2022 5:58 PM 08/21/2022 12:23 AM Care Teams Welder Production Line Arc Relationship Specialty Start Date End Date Júnior Lawrence DO [address] [place] [address] PCP - General Family Medicine 07/04/23 Jewel Armas MD Internal Medicine-Gastroenterol ogy 01/06/14 Ivan Lucia MD [address] [phone] Internal Medicine-Endocrinology , Diabetes & Metabolism 07/15/14 Eliezer Gan MD [address] [place] [address] [address] [place] [address] Physician Obstetrics & Gynecology 11/21/14 Ángel Rose MD [address] [place] [address] [address] [place] [address] Consulting Physician Anesthesiology-Pain Medicine 07/29/20 Glendy Ch MD [address] [place] [address] [place] [address] Medical Oncologist Internal Medicine-Hematology and Oncology 01/11/21
--- OUTSIDE RECORDS SUMMARY | 2025-04-23 14:05 | XMS_ITS | Patient Health Record ---
Author Organization [facility] Address [address] [place] [address] Care Team Providers Care Superintendent Plant Name Role Phone Dioniciogee Presley Primary Care Provider UnavailÁngel Bradshaw Unavailable [phone] Júnior Lawrence Unavailable Unavailable Allergies Allergen (clinical drug ingredient) Drug/Non Drug Allergy documented on EMR Reaction Allergy Type Onset Date Status Codeine Phosphate itch Drug Allergy Active Reason For Referral No Information Medications Medication SIG (Take, Route, Frequency, Duration) Notes Start Date End Date Status Metoprolol Succinate 25 MG 1 capsule Ora lly Once a day for 30 day(s) Active Plavix 75 MG 1 tablet Orally Once a day for 30 day(s) Active Dasatinib 70 MG 1 tablet Orally Twic e a day Not-Taking Aspirin 81 81 MG 1 tablet Orally Once a day for 30 day(s) Active diazePAM 5 MG 1tablet Orally qhs Not-Taking carBAMazepine 100 MG 2 tablets Orally Tw ice a day Not-Taking Cyclobenzaprine HCl 5 MG 1 tablet as nee ded Orally qhs for 30 Not-Taking Sprycel 50 MG 2 tablets Orally Onc e a day for 30 day(s) Not-Taking Calcium Carbonate-Vitamin D 500-200 MG-UNIT 1 tablet Orally Twice a day for 30 day(s) Not-Taking Topiramate 50 MG TAKE 1 TABLET BY DEANA TH TWICE DAILY FOR 30 DAYS Not-Taking Senna 8.6 MG 2 tablets at bedtime as needed Orally Once a day for 30 day(s) Not-Taking Jardiance 10 MG 1 tablet Orally Once a day Not-Taking Rosuvastatin Calcium 20 MG 1 capsule Ora lly Once a day Active Sulfamethoxazole-Trimethop rim 800-160 MG 1 tablet Orally Twice a day for 10 day(s) Not-Taking tiZANidine HCl 2 MG as directed Orally 1 /2 tab by mouth twice daily 04/19/2021 Active VESIcare 10 MG 1 tablet Orally Once a day Not-Taking Sertraline HCl 50 MG 1 tablet Orally Onc e a day Not-Taking Silver sulfADIAZINE 1 % 1 application to affected area Externally Once a day Not-Taking Pregabalin 50 MG 1 capsule Orally Onc e a day Active Aspirin 325 MG 1 tablet Orally Once a day Active Pennsaid 2 % 2 pumps Externally Twice a day 08/20/2021 Not-Taking Basaglar KwikPen 100 UNIT/ML 35 UNITS Subcutaneous Active Cetirizine HCl 10 MG 1 tablet Orally Onc e a day for 30 day(s) Active MiraLax - as directed Orally N ot-Taking Albuterol Sulfate 108 (90 Base) MCG/ACT 1 puff as needed Inhalation every 4 hrs Active Nystatin 789854 UNIT/GM 1 application to affected area Externally Twice a day Not-Takin g Esomeprazole Sodium 40 MG as directed Intravenous Active Latanoprost 0.005 % 1 drop into affected eye in the evening Ophthalmic Once a day Not-Taking Cholecalciferol 25 MCG (1000 UT) 1 capsule Orally Once a day for 30 day(s) Active Loratadine 10 MG 1 tablet Orally Once a day for 30 day(s) Not-Taking rOPINIRole HCl 0.25 MG 1 tablet 1 to 3 h ours before bedtime Orally Once a day for 30 day(s) Active Imodium A-D 2 MG 1 tablet as needed Orally Four times a day Not-Taking Movantik 25 MG 1 tablet in the morning Orally Once a day for 30 day(s) Active Lasix 40 MG 1 tablet Orally Once a day for 30 day(s) Not-Taking Fluconazole 150 MG 1 tablet Orally prn Not-Taking Xelpros 0.005 % 1 null into affected eye in the evening Ophthalmic Once a day Active Gabapentin 100 MG 1tablet Orally tid Not-Taking Diclofenac Sodium 75 MG 1 tablet Orally Twice a day Not-Taking Immunizations Vaccine Route Administration Date Status Comme nts Influenza (split), 3 yrs and above Unknown 12/07/2016 R efused Influenza (split), 3 yrs and above Unknown 01/30/2017 R efused Influenza (split), 3 yrs and above Unknown 09/07/2017 R efused Influenza (split), 3 yrs and above Unknown 11/16/2017 A dministered Influenza (split), 3 yrs and above Unknown 10/09/2018 A dministered Influenza (split), 3 yrs and above Unknown 12/17/2019 A dministered Influenza (split), 3 yrs and above Unknown 01/15/2020 A dministered Influenza (split), 3 yrs and above Unknown 05/19/2020 R efused Influenza (split), 3 yrs and above Unknown 08/20/2021 R efused Influenza (split), 3 yrs and above Unknown 09/20/2021 R efused Influenza (split), 3 yrs and above Unknown 10/14/2021 R efused Influenza (split), 3 yrs and above Unknown 04/18/2022 R efused Social History Tobacco Use: Social History Observation Description Date Details (start date - stop date) Never Smoker NA - NA Tobacco Use/Smoking Question Answer Notes Are you a nonsmoker Alcohol Screen (Audit-C) Question Answer Notes Did you have a drink containing alcohol in the p ast year? No Points 0 Interpretation Negative Tobacco use other than smoking: Question Answer Notes Are you an other tobacco user? 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) Active confirmed Problem 51032885 Lumbosacral spondylosis without myelopathy (M47.817) Active confirmed Problem 45129309 Displacement of cervical intervertebral disc without myelopathy (M50.20) Active confirmed Problem 353231722 Cervical spondylosis without myelopathy (M47.812) Active confirmed Problem 660904005 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 Problem 968344556501464 Lateral epicondylitis of left elbow (M77.12) Active confirmed Problem 51405202 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) Active confirmed Problem Migraine (50743234) Migraine (G43.909) Active confirmed Problem 90073155 Cervical radiculopathy (M54.12) Active confirmed Problem Leukemia (94139206) Leukemia (C95.90) Active co nfirmed Problem 21509936 Left elbow pain (M25.522) Active confirmed Problem 869933753566915 Right carpal tunnel syndrome (G56.01) Active confirmed Problem 205102262 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 confirmed Problem 80955527 Trigeminal neuralgia syndrome (G50.0) Active confirmed Problem Leg pain, left (M79.605) Active confirmed Problem 21876133911769704 Rotator cuff arthropathy of left shoulder (M12.812) Active confirmed Problem 348442835 Osteoarthritis o f hip, unspecified laterality, unspecified osteoarthritis type (M16.9) Active confirmed Problem 621981646 Right peroneal tendinosis (M67.88) Active confirmed Plan Of Treatment Pending Test Test Name Order Date MRI : Cervical without Contrast 06/07/20 21 [facility] All Tests Requested 05/19/2017 [facility] Profile 12/01/2017 [facility] Profile 12/01/2017 [facility] Profile 03/14/2018 [facility] Profile 10/09/2018 [facility] Profile 01/07/2019 [facility] Profile 04/24/2019 [facility] Profile 08/19/2019 [facility] Profile 12/17/2019 [facility] Profile 03/19/2020 [facility] Profile 07/15/2020 [facility] Profile 11/11/2020 [facility] Profile 01/18/2017 [facility] Profile 06/07/2021 [facility] Profile 09/20/2021 [facility] Profile 12/30/2021 [facility] Profile 01/31/2022 [facility] Profile 02/07/2022 [facility] Profile 03/21/2022 [facility] Profile 07/11/2022 *HGBS NEG UNIT 11/11/2020 XR KNEE BILATERAL AP LATERAL AND SUNRISE STANDING 09/09/2022 Insurance Providers Payer Name Payer Address Payer Phone Subscriber Number Group Number Insured Name Patient Relationship to Insured Coverage Start Date Coverage End Date [employer] [address] [place] [address] [id number] Fatoumata Bailey Self - patient is the insured Medicaid [address] [place] [id number] Fatoumata Bailey Self - patient is the insured [employer] [address] [address] [place], [place] [id number] Fatoumata Bailey Self - patient is the insured Medical (General) History Medical History History ICD Code Arthritis Cancer/tumor(leukemia) Diabetes Mellitus Type II IBS STROKE Surgical History Surgery Date(Month/Year) Gallbladder Partial hysterectomy Hospitalization History Reason Date(Month/Year) CVA 04/2019 STROKE 05/2022
--- OUTSIDE RECORDS SUMMARY | 2025-04-23 15:03 | XMS_ITS | CCD ---
Author Organization Unknown Care Team Providers Care Er Medical Technician Name Role Phone Unavailable Primary Care Provider Unavailabl e Unavailable Chronic Care Management Unavaila ble Summary Purpose DataExchange Insurance Providers Payer name Policy type / Coverage type Covered alliance party ID Effective Begin Date Effective End Date [facility] [id number] Unknown Unknown Family History Family History data not found Medication Administered No Medication Administered data Reason For Visit No Reason For Visit data Medical Equipment No Medical Equipment data Advance Directives No Advance Directive data
--- OUTSIDE RECORDS SUMMARY | 2025-04-23 15:04 | XMS_ITS | CCD ---
Author Organization Unknown Care Team Providers Care Lay Out Machine Operator Name Role Phone Unavailable Primary Care Provider Unavailabl e Unavailable Chronic Care Management Unavaila ble Summary Purpose DataExchange Insurance Providers Payer name Policy type / Coverage type Covered democrat ID Effective Begin Date Effective End Date [facility] [id number] Unknown Unknown Family History Family History data not found Medication Administered No Medication Administered data Reason For Visit No Reason For Visit data Medical Equipment No Medical Equipment data Advance Directives No Advance Directive data
[2025-04-23 16:00] VITALS: BP 116/87; PULSE 86; RESP 16; TEMP 36.6; O2SAT 99
[2025-04-23 16:07] LABS: POC Glucose,Bedside 255 (70-110)
--- NOTE | 2025-04-23 16:53 | PC.NURSE ---
pt remains alert to only self this shift. Vital signs stable tolerating room air. IV abx infused. FSBS treated per DEC. Pt would not take any PO medications this shift. notified. Plan is for placement at discharge. Pt resting comfortably lying on her right side with no further needs voiced at this time. Call light within reach
[2025-04-23 18:10] LABS: Hemoglobin A1C > 14.0 % (4.0-6.0)
[2025-04-23 20:00] VITALS: BP 150/73; PULSE 99; RESP 16; TEMP 36.3; O2SAT 99
[2025-04-23 21:17] LABS: POC Glucose,Bedside 193 (70-110)
[2025-04-24] VITALS: BP 161/80; PULSE 100; RESP 14; TEMP 37.1; O2SAT 93
[2025-04-24 04:00] VITALS: BP 127/59; PULSE 87; RESP 15; TEMP 36.7; O2SAT 96; BMI 21.3
--- NOTE | 2025-04-24 04:16 | PC.NURSE ---
Pt has remained alert to self and has tolerated room air. VSS. Pt unable to swallow nighttime meds. FSBS treated per DEC. Currently resting in bed with bed alarm in place.
[2025-04-24] MEDS: humaLOG 100 UNITS/ML 10ML VIAL (SSI) SUBCUT ×3 (06:10→21:00)
[2025-04-24 06:28] LABS: POC Glucose,Bedside 238 (70-110)
[2025-04-24 06:51] LABS: Basophils # 0.2 K/mm3 (0-0.2); Eosinophils # 0.1 Kmm3 (0.0-0.4); Eosinophils % 0.7 % (0.1-12.0); Hematocrit 42.8 % (37.0-47.0); Hemoglobin 14.2 g/dL (12.2-16.2); Immature Granulocytes # 0.12 10^3uL; Immature Granulocytes % 0.8 %; Lymphocytes # 2.7 K/mm3 (0.7-4.5); Lymphocytes % 17.4 % (10-50); Mean Corpuscular HGB Conc 33.2 g/dL (31.8-35.4); Mean Corpuscular Volume 78.4 fl (81-99); Monocytes # 1.1 K/mm3 (0.1-1.0); Monocytes % 7.4 % (1.7-9.3); Neutrophils # 11.2 K/mm3 (1.8-7.8); Neutrophils % 72.7 % (37.0-80.0); Nucleated Red Blood Cells # 0 10^3/uL; Nucleated Red Blood Cells % 0 %; Platelet Count 206 K/mm3 (142-424); Red Blood Count 5.46 M/mm3 (4.20-5.40); Red Cell Distribution Width 14.5 % (11.5-17.5); Red Cell Distribution Width-SD 40.6 fL; White Blood Count 15.4 K/mm3 (4.8-10.8)
--- NOTE | 2025-04-24 06:54 | PC.NURSE ---
pt turned and repositioned every two hours per staff, offered drink when in room. No cues pain/distress
[2025-04-24 07:02] LABS: Chloride 103 mmol/L (98-107); Potassium 3.7 mmoL/L (3.5-5.1); Sodium 139 mmol/L (136-145)
[2025-04-24 07:05] LABS: Alanine Aminotransferase 29 U/L (12-78); Albumin/Globulin Ratio 1.4 (1.1-1.8); Alkaline Phosphatase 211 U/L (38-126); Anion Gap 17.7 mEq/L (5-15); Aspartate Amino Transferase 41 U/L (14-36); Blood Urea Nitrogen 15 mg/dl (7-17); Carbon Dioxide 22 mmol/L (22.0-30.0); Creatinine Clearance Estimated 41 mL/min (50-200); Estimated Glomerular Filt Rate 71 ml/min (>60); GFR (African American) 86 ML/MIN (>60); Globulin 2.9 g/dL (1.3-3.2); Total Protein,Serum 6.9 g/dl (6.3-8.2)
[2025-04-24 07:06] LABS: Calcium 8.9 mg/dl (8.4-10.2); Glucose 256 mg/dl (74-100)
[2025-04-24 07:29] LABS: Thyroid Stimulating Hormone 1.53 uIU/mL (0.465-4.68)
[2025-04-24 07:39] LABS: Free T4 (Free Thyroxine) 1.35 ng/dl (0.78-2.19)
[2025-04-24 08:00] VITALS: BP 149/76; PULSE 92; RESP 16; TEMP 36.6; O2SAT 100
[2025-04-24] MEDS: INSULIN GLARGINE 100 UNITS/ML 3ML FLEXPEN 15 UNIT SUBCUT (11:35)
--- NOTE | 2025-04-24 12:24 | MR_ITS ---
FINAL REPORT TECHNIQUE: Multiplanar MR, without and with gadolinium enhancement CLINICAL HISTORY: suspected acute on chronic stroke COMPARISON: CT head 04/22/2025 FINDINGS: MRI AT WITH AND WITHOUT CONTRAST: There are multiple areas of restricted diffusion in the left frontoparietal lobes medially, left anterior cerebral artery territory. There is a small focus of restricted diffusion in the right occipital cortex, involving the right posterior cerebral artery territory. There are advanced changes of microvascular disease. There are multiple old bilateral hemispheric infarcts present as well. No mass or hemorrhage is seen. Changes of atrophy are present. Major vascular flow voids are intact. Following contrast administration, no mass or abnormal enhancement is seen. IMPRESSION: 1. Moderate area of acute infarct in the left anterior cerebral artery vascular distribution, favor embolic. 2. Smaller area of acute infarct in the right posterior cerebral artery distribution, favor embolic. 3. Advanced changes of atrophy and chronic microvascular disease. Reviewed, Interpreted and Dictated by Amol Sauer MD Transcribed by Luisa Seaman Authenticated and [facility]
[2025-04-24 12:47] VITALS: BMI 21.3
[2025-04-24] MEDS: CEFTRIAXONE 1 GM 1 GM in 0.9 % SODIUM CHLORIDE 50 ML IV (12:56)
--- NOTE | 2025-04-24 13:16 | PC.NURSE ---
Pt left floor for MRI @1407
[2025-04-24] MEDS: GADOTERIDOL INJ 10ML SYRINGE 10 ML IV (13:43)
[2025-04-24] MEDS: SODIUM CHLORIDE 0.9% 10ML SYR (RAD ONLY) 10 ML IV (13:43)
--- NOTE | 2025-04-24 13:57 | PC.NURSE ---
Pt back from MRI at this time.
--- NOTE | 2025-04-24 16:49 | P.PN_ITS ---
Subjective *Date: 04/24/25 *Time: 17:28 Interval history: Stable overnight. On room air. No nausea or vomiting. Still awaiting culture results. Intermittent responsiveness to staff. Medical Exam Vital signs and Labs for Last 24 Hours: Vital Signs Temp Pulse Resp BP Pulse Ox O2 Del Method 04/24/25 13:00 Room Air 04/24/25 10:36 Room Air 04/24/25 08:00 Room Air 04/24/25 08:00 97.8 F 92 H 16 149/76 H 100 Room Air 04/24/25 06:30 Room Air 04/24/25 05:00 Room Air 04/24/25 04:00 98.1 F 87 15 127/59 L 96 Room Air 04/24/25 03:00 Room Air 04/24/25 01:00 Room Air 04/24/25 00:00 98.7 F 100 H 14 161/80 H 93 L 04/23/25 23:00 Room Air 04/23/25 21:00 Room Air 04/23/25 20:00 Room Air 04/23/25 20:00 97.4 F L 99 H 16 150/73 H 99 Room Air 04/23/25 18:39 Room Air 04/23/25 17:00 Room Air Intake and Output 04/24/25 04/24/25 04/24/25 07:59 15:59 23:59 Intake Total 60 / 60 0 / 60 Output Total 200 / 200 Balance -140 / -140 0 / -140 Intake: Intake, Oral Amount 60 / 60 0 / 60 Output: Output, Urine Amount 200 / 200 Other: Number of Unmeasured Voids 0 Weight 49.26 kg 49.26 kg Patient Weight 04/24/25 23:59 Weight 49.26 kg Laboratory Results - last 24 hr 04/22/25 15:53: Urine Color Yellow, Urine Appearance Clear, Urine pH 8.0, Ur Specific [place] 1.010, Urine Protein Trace, Urine Glucose (UA) 3+, Urine Ketones 2+, Urine Blood Trace-l, Urine Nitrate Negative, Urine Bilirubin Negative, Urine Urobilinogen 0.2, Ur Leukocyte Esterase Trace, Urine RBC Occasional, Urine WBC 50-100, Ur Squamous Epith Cells Occasional, Urine Bacteria 4+ 04/23/25 05:33: Hemoglobin A1c > 14.0 H 04/23/25 21:02: POC Glucose 193 H 04/24/25 06:02: WBC 15.4 H, RBC 5.46 H, Hgb 14.2, Hct 42.8, MCV 78.4 L, MCH 26.0 L, MCHC 33.2, RDW 14.5, Plt Count 206, MPV 12.0 H, Neut % (Auto) 72.7, Lymph % (Auto) 17.4, Teller % (Auto) 7.4, Eos % (Auto) 0.7, Baso % (Auto) 1.0, Neut # (Auto) 11.2 H, Lymph # (Auto) 2.7, Teller # (Auto) 1.1 H, Eos # (Auto) 0.1, Baso # (Auto) 0.2, Sodium 139, Potassium 3.7, Chloride 103, Carbon Dioxide 22, Anion Gap 17.7 H, BUN 15 D, Creatinine 0.80, Estimated Creat Clear 41, Estimated GFR 71, Est GFR ( Amer) 86, Glucose 256 H, Calcium 8.9, Total Bilirubin 2.0 H , AST 41 H, ALT 29, Alkaline Phosphatase 211 H, Total Protein 6.9, Albumin 4.0, Globulin 2.9, Albumin/Globulin Ratio 1.4, Procalcitonin 0.060, TSH 1.53, Free T4 1.35 04/24/25 06:09: POC Glucose 238 H I & O for Labs for Last 24 Hours: Intake & Output 04/21/25 04/22/25 04/23/25 04/24/25 23:59 23:59 23:59 23:59 Intake Total 120 / 120 60 / 60 Output Total 300 / 300 450 / 450 200 / 200 Balance -300 / -300 -330 / -330 -140 / -140 Weight 51.211 kg 49.487 kg 49.26 kg Microbiology Reports for the Last 24 Hours: Microbiology 04/22/25 15:53 Urine,Clean Catch Urine Culture - Preliminary Gram Negative Rods 04/22/25 16:48 Blood Blood Culture - Preliminary NO GROWTH AFTER 24 HOURS 04/22/25 16:39 Blood Blood Culture - Preliminary Constitutional: Present mild distress, thin and chronically ill appearing Comment:: Flat affect, not following commands, not combative Head: Present atraumatic and normocephalic Respiratory: Absent respiratory distress, rhonchi, stridor or wheezes Cardiac: Present Reg Rate and Rhythm GI: Present soft; Absent distention Extremities: Present normal inspection; Absent edema Skin: Present intact Neuro: Present alert and awake Comment:: Unable to assess orientation. Not answering questions or following commands. Affect flat. Right sided weakness, chronic Assessment and Plan *Assessment and plan (1) Acute embolic stroke: Status: Acute Category: Medical Code(s): I63.9 - Cerebral infarction, unspecified (2) Urinary tract infection in female: Status: Acute Category: Medical Code(s): N39.0 - Urinary tract infection, site not specified (3) Sepsis without septic shock: Status: Acute Category: Medical Code(s): A41.9 - Sepsis, unspecified organism (4) Chronic GERD: Status: Acute Category: Medical Code(s): K21.9 - Gastro-esophageal reflux disease without esophagitis (5) CVA (cerebral vascular accident): Status: Chronic Category: Medical Code(s): I63.9 - Cerebral infarction, unspecified (6) Dementia: Status: Chronic Category: Medical Code(s): F03.90 - Unspecified dementia, unspecified severity, without behavioral disturbance, psychotic disturbance, mood disturbance, and anxiety (7) Diabetes: Status: Chronic Category: Medical Code(s): E11.9 - Type 2 diabetes mellitus without complications Plan Fatoumata Bailey is a 70-year-old female with a medical history significant for hypertension, type 2 diabetes presents from home after son noticed her to be more confused, weak today. Son states patient had been doing well since she requested to be discharged from long-term nursing facility 3 weeks ago up until today. On my evaluation, patient looked very weak and confused and not the best historian. Workup in the ED significant for grossly abnormal UA, WBC 13.1, with tachycardia. She was given a sepsis bolus and ceftriaxone in the ED. Case discussed with ED provider initially was made to admit patient for acute metabolic encephalopathy, weakness from sepsis from UTI. Discussed case with case management today, working on getting patient back to rehab as therapy recommends placement. Patient minimally interactive with staff, not following commands. Will make eye contact but not answering questions. Will speak spontaneously. Continues to require patient management. Problems addressed as follows: #Acute embolic stroke of left anterior cerebral artery #Acute metabolic encephalopathy #Sepsis, resolving #UTI ? Presents with 1 day onset of reported confusion, weakness. Initial UA grossly abnormal, WBC 13.1 with tachycardia. - WBC improved to 15.4, Continue antibiotics with ceftriaxone IV 1 g daily. - Culture growing greater than 100,000 CFU's gram-negative rods. Awaiting speciation. -Patient's mentation not showing improvement. Does have history of strokes. CT obtained at time of admission was grossly abnormal which showed extensive chronic infarcts bilaterally. No acute edema on CT. As her mentation is not improving with antibiotic treatment for UTI, proceeded with MRI today. MRI unfortunately is grossly abnormal with moderate acute infarct of left anterior cerebral artery vascular distribution. Also has a small area of acute infarct in the right posterior cerebral circulation. Also significant advanced chronic changes with atrophy. -Contacted patient's son Julien as I have concerned that patient will not show significant improvement. Open to considering hospice consultation if not tolera ting p.o. nutrition or meds - Repeat CBC, CMP, Mg ordered for the morning - Kidney function stable with BUN 15, creatinine 0.8, potassium 3.7 #Type 2 diabetes ? Uncontrolled, A1c greater than 14. Morning glucose 256. Initiate long acting insulin with glargine this morning at 15 units daily. Continue sliding scale. Monitor for needs over the next 24 hours. Fingersticks ACHS #Hypertension: Blood pressure creasing today. Continue losartan 25 mg daily. Continue metoprolol succinate 25 mg daily. #Suspected A-fib: Patient is a poor historian at this time. Continue metoprolol, Eliquis. #GERD: Continue home PPI. Dementia: Continue memantine 5 mg twice daily. Complicates all aspects of her care Full code DVT prophylaxis: Eliquis 5 mg twice daily Diabetic diet
--- NOTE | 2025-04-24 17:32 | PC.NURSE ---
PT IS RESTING IN BED. PT WILL OPEN EYES TO NAME HOWEVER WILL NOT VERBALLY RESPOND OR ALWAYS GIVE EYE CONTACT. PT IS UNABLE TO FOLLOW COMMANDS. REFUSED TO OPEN MOUTH FOR STAFF TO EAT OR DRINK AND WOULD NOT TAKE ANY PO MEDS. PURWICK IN PLACE. MODERATE BOWEL MOVEMENT THIS SHIFT. STAFF ASSISTING WITH REPOSITIONING. LUNG SOUNDS CLEAR. ABDOMEN SOFT WITH ACTIVE BOWEL SOUNDS. WILL CONTINUE TO MONITOR.
--- NOTE | 2025-04-24 17:45 | EXP.EVENT.NO ---
Advance care planning note: Active diagnosis: Previous CVAs, uncontrolled diabetes, hypertension, presentation with encephalopathy, UTI. Findings of new strokes on top of her chronic strokes. Dementia The patient's active diagnoses are of sufficient risk that focused discussion on advanced care planning is indicated in order to allow the patient to thoughtfully consider personal goals of care; and, if situations arise that prevent the ability to personally give input, to ensure appropriate representation of their personal desires through documentation or informed surrogate decision makers. Discussion: Persons present and participating in discussion: Discussion with son Julien over the phone about his mother Fatoumata Discussion: 70-year-old female with extensive history of poorly controlled diabetes, previous CVAs, dementia. Presented after becoming more confused at home. Patient less responsive. Concern for UTI initially, after no improvement over 48 hours, MRI obtained which showed new strokes on top of her chronic strokes. Patient's condition will likely deteriorate. At this time she is minimally responsive with staff. Not tolerating p.o. medications or nutrition. Has no interest in participating with therapy or providers. Discussed case with son. He is open to considering hospice in light of her worsening condition and acute on chronic CVA. Will discharge to assisted under hospice care. Time spent: Total time spent [id number] in education and discussion directly related to advance care plannin min Kalen Olson 04/24/2025
[2025-04-24 20:00] VITALS: BP 157/84; PULSE 103; RESP 16; TEMP 37.2; O2SAT 98
[2025-04-24] MEDS: ENOXAPARIN 100MG/ML SYRINGE 50 MG SUBCUT (20:00)
--- NOTE | 2025-04-24 20:05 | PC.NURSE ---
Oral medications were unable to be administered at this time. Subcutaneous injections were able to be administered per DEC. Charge nurse (Himanshu Brice RN) and Ilda Oden APRN aware. 20:00: Upon initial assessment, the patient was resting in bed with eyes closed. Despite calling her name + shaking/rubbing sternum, the patient did not open her eyes or exhibit a response/cue to my presence. Respirations were noted to be even and unlabored. Mouth swabs soaked in plain water were dabbed onto the patient' mouth to see if she would respond as well; patient still did not open her mouth. Not following any commands. During any kind of task, I proceeded to explain to the patient what I would be doing, despite no return of a verbal/nonverbal response from her. Reassurance given. While checking her glucose via Accu-Check, the patient's left hand, originally in a fist, opened in response to rubbing an alcohol swab on a designated fingertip to prep for the check. Her left extremity jerked in response to the stick; hence, the patient responds to light pain. The patient also responded to the Enoxaparin and insulin injections with a noticed facial grimace. 21:00: I checked on the patient to find her with eyes open, and her left hand was gripping the side rail. Right-side extremities did not voluntarily move. The patient made eye contact with me but it was not maintained. Patient did not make eye contact whenever I called her name. YAYA. Mouth remained closed. Patient was repositioned in bed at this time, and I noticed that she groaned during movement of her head and neck. Limited range of motion to neck. Ilda Oden APRN was paged for any intravenous pain medication orders due to the patient's inability to follow commands, refusal to open mouth, and my concern for her safety involving potential for aspiration and choking. Patient's ability to swallow is still not able to be assessed at this time.
[2025-04-24] MEDS: KETOROLAC 30MG/ML VIAL 15 MG IV (21:30)
[2025-04-25] VITALS: BP 144/74; PULSE 92; RESP 18; TEMP 36.2; O2SAT 98
[2025-04-25 04:00] VITALS: BP 140/61; PULSE 95; RESP 16; TEMP 35.6; O2SAT 97; BMI 20.4
--- NOTE | 2025-04-25 04:15 | PC.NURSE ---
Orientation is unable to be assessed due to the cognitive impairment extent of patient. GCS 7. Patient was observed to have wakeful periods (eyes open) and resting periods (eyes closed) throughout the night. Respirations have remained even and unlabored, oxygen saturations > 90% on room air. She is entirely dependent on others (nursing staff) for her care. Patient is able to move her left upper and lower extremities voluntarily, but has not exhibited any active motion of her right upper and lower extremities. She has been turned/repositioned in bed every two hours to preserve skin integrity and prevent pressure injuries. Mild redness noted to buttocks. ChapStick applied to soothe dry lips. Diminished lung sounds, hypoactive bowel sounds. Incontinent of bladder/bowel; a purewick and brief remain in place for elimination needs. Urine output documented accordingly, no bowel movement thus far this shift. Bed bath given this morning. Intravenous Toradol was administered per DEC due to head/neck pain; the intensity of her pain was rated and followed-up with the NIPS and [place] Faces scales. During repositioning at around midnight, the patient did verbally say ow, involving movement of her head; this has been the only occurrence of which the patient expressed any sort of speech this shift. Oral intake remains refused and contraindicated. At this time, the patient is resting in bed without any further complaints. No new needs thus far. Bed alarm on. Call light within reach.
[2025-04-25] MEDS: humaLOG 100 UNITS/ML 10ML VIAL (SSI) SUBCUT ×2 (05:59→12:08)
[2025-04-25 06:01] LABS: POC Glucose,Bedside 255 (70-110)
[2025-04-25 06:54] LABS: Chloride 104 mmol/L (98-107); Sodium 142 mmol/L (136-145)
[2025-04-25 06:55] LABS: Basophils # 0.2 K/mm3 (0-0.2); Basophils % 1.1 % (0.1-2.0); Eosinophils # 0.2 Kmm3 (0.0-0.4); Eosinophils % 1.1 % (0.1-12.0); Hematocrit 44.8 % (37.0-47.0); Hemoglobin 14.1 g/dL (12.2-16.2); Immature Granulocytes # 0.15 10^3uL; Immature Granulocytes % 0.9 %; Lymphocytes # 2.3 K/mm3 (0.7-4.5); Lymphocytes % 14.3 % (10-50); Mean Corpuscular HGB Conc 31.5 g/dL (31.8-35.4); Mean Corpuscular Hemoglobin 25.2 pg (27.0-31.2); Mean Corpuscular Volume 80.1 fl (81-99); Mean Platelet Volume 11.9 fl (7.4-10.4); Monocytes # 1.3 K/mm3 (0.1-1.0); Monocytes % 8.2 % (1.7-9.3); Neutrophils % 74.4 % (37.0-80.0); Nucleated Red Blood Cells # 0 10^3/uL; Nucleated Red Blood Cells % 0 %; Platelet Count 211 K/mm3 (142-424); Potassium 3.6 mmoL/L (3.5-5.1); Red Blood Count 5.59 M/mm3 (4.20-5.40); Red Cell Distribution Width 14.4 % (11.5-17.5); Red Cell Distribution Width-SD 41.4 fL; White Blood Count 16.1 K/mm3 (4.8-10.8)
[2025-04-25 06:57] LABS: Alanine Aminotransferase 26 U/L (12-78); Albumin/Globulin Ratio 1.4 (1.1-1.8); Alkaline Phosphatase 218 U/L (38-126); Anion Gap 20.6 mEq/L (5-15); Aspartate Amino Transferase 34 U/L (14-36); Bilirubin,Total 1.7 mg/dl (0.2-1.3); Blood Urea Nitrogen 23 mg/dl (7-17); Carbon Dioxide 21 mmol/L (22.0-30.0); Creatinine Clearance Estimated 40 mL/min (50-200); Estimated Glomerular Filt Rate 62 ml/min (>60); GFR (African American) 75 ML/MIN (>60); Globulin 2.9 g/dL (1.3-3.2); Total Protein,Serum 6.9 g/dl (6.3-8.2)
[2025-04-25 06:58] LABS: Glucose 247 mg/dl (74-100)
[2025-04-25 07:36] VITALS: BP 120/75; PULSE 96; RESP 14; TEMP 37; O2SAT 95
[2025-04-25 08:14] LABS: POC Glucose,Bedside 242 (70-110)
[2025-04-25 08:14] LABS: POC Glucose,Bedside 222 (70-110)
[2025-04-25 08:14] LABS: POC Glucose,Bedside 188 (70-110)
[2025-04-25] MEDS: ENOXAPARIN 60MG/0.6ML SYRINGE 50 MG SUBCUT (10:12)
[2025-04-25] MEDS: LEVOFLOXACIN/D5W 750 MG/150 ML 750 MG/150 ML PIGGYBACK 100 MG IV (10:13)
[2025-04-25] MEDS: INSULIN GLARGINE 100 UNITS/ML 3ML FLEXPEN 20 UNIT SUBCUT (10:19)
[2025-04-25 12:00] VITALS: BP 116/57; PULSE 88; RESP 15; TEMP 37; O2SAT 98
[2025-04-25 12:16] LABS: POC Glucose,Bedside 216 (70-110)
--- NOTE | 2025-04-25 12:57 | P.DS_ITS ---
General Admission date:: 04/22/25 Discharge date: 04/25/25 HPI HPI HPI: Fatoumata Bailey is a 70-year-old female with a medical history significant for hypertension, type 2 diabetes presents from home after son noticed her to be more confused, weak today. Son states patient had been doing well since she requested to be discharged from long-term nursing facility 3 weeks ago up until today. On my evaluation, patient looked very weak and confused and not the best historian. Workup in the ED significant for grossly abnormal UA, WBC 13.1, with tachycardia. She was given a sepsis bolus and ceftriaxone in the ED. Case discussed with ED provider initially was made to admit patient for acute metabolic encephalopathy, weakness from sepsis from UTI. Hospital Course Hospital Course Hospital Course: Fatoumata Bailey is a 70-year-old female with a medical history significant for hypertension, type 2 diabetes presents from home after son noticed her to be more confused, weak today. Son states patient had been doing well since she requested to be discharged from long-term nursing facility 3 weeks ago up until today. On my evaluation, patient looked very weak and confused and not the best historian. Workup in the ED significant for grossly abnormal UA, WBC 13.1, with tachycardia. She was given a sepsis bolus and ceftriaxone in the ED. Case discussed with ED provider initially was made to admit patient for acute metabolic encephalopathy, weakness from sepsis from UTI. Discussed case with case management today, working on getting patient back to rehab as therapy recommends placement. Given her poor response to antibiotics and no improvement with treatment of just UTI, MRI was pursued which did show that patient has had new embolic strokes. Given her cognitive changes, suspect that her altered mentation, lack of tolerance of p.o. intake, weakness and not following commands are symptoms of her new strokes. Patient's prognosis is grave. Discussed case with son, will pursue hospice. Stable to discharge to nursing facility under hospice care. Problems addressed as follows: #Acute embolic stroke of left anterior cerebral artery #Acute metabolic encephalopathy #Sepsis, resolving #UTI ? Presented with 1 day onset of reported confusion, weakness. Initial UA grossly abnormal, WBC 13.1 with tachycardia. WBC improved to 16 by day of discharge. Treated with ceftriaxone for 3 days and an additional dose of levofloxacin 750 mg. Based on renal dosing, this will cover her for 48 hours. Her urine culture grew gram-negative rods, speciated to Proteus. Sensitive to ceftriaxone and Levaquin. Patient has been completed 5 days of antibiotics. No further antibiotics needed. Patient's mentation not showing improvement. Does have history of strokes. CT obtained at time of admission was grossly abnormal which showed extensive chronic infarcts bilaterally. No acute edema on CT. As her mentation is not improving with antibiotic treatment for UTI, proceeded with MRI today. MRI unfortunately is grossly abnormal with moderate acute infarct of left anterior cerebral artery vascular distribution. Also has a small area of acute infarct in the right posterior cerebral circulation. Also significant advanced chronic changes with atrophy. Contacted patient's son Julien as I have concerned that patient will not show significant improvement. Proceeding with hospice consult. [facility]. #Type 2 diabetes: Uncontrolled, A1c greater than 14. Morning glucose 247. Initiated on basal insulin. Continue glargine 20 units daily. Would consider sliding scale if patient begins eating. #Hypertension: Blood pressure stable at 116/57. Holding blood pressure meds #Suspected A-fib: Patient unable to provide history. Continue metoprolol, Eliquis. #GERD: Continue home PPI if patient will tolerate Dementia: Continue memantine 5 mg twice daily. Complicates all aspects of her care After extensive discussion with family, will pursue hospice given patient's lack of response to staff and lack of interest in eating or taking meds. Stable to discharge to [facility] Exam Data for Last 24 hours Vital signs and Labs for Last 24 Hours: Temp Pulse Resp BP Pulse Ox O2 Del Method 97.8 F 92 H 16 149/76 H 100 Room Air 04/24/25 08:00 04/24/25 08:00 04/24/25 08:00 04/24/25 08:00 04/24/25 08:00 04/24/25 10:36 Laboratory Results - last 24 hr 04/22/25 15:53: Urine Color Yellow, Urine Appearance Clear, Urine pH 8.0, Ur Specific [place] 1.010, Urine Protein Trace, Urine Glucose (UA) 3+, Urine Ketones 2+, Urine Blood Trace-l, Urine Nitrate Negative, Urine Bilirubin Negative, Urine Urobilinogen 0.2, Ur Leukocyte Esterase Trace, Urine RBC Occasional, Urine WBC 50-100, Ur Squamous Epith Cells Occasional, Urine Bacteria 4+ 04/23/25 05:33: Hemoglobin A1c > 14.0 H 04/23/25 11:04: POC Glucose 228 H 04/23/25 13:38: A. baumannii (PCR) Not detected, Bacteroides fragilis Not detected, Cecile albicans (PCR) Not detected, Cecile auris (PCR) Not detected, C. glabrata (PCR) Not detected, C. krusei (PCR) Not detected, C. parapsilosis (PCR) Not detected, C. tropicalis (PCR) Not detected, Cryptococcus neoformans PCR Not detected, Enterobacterales (PCR) Not detected, Enterococc faecalis PCR Not detected, Enterococc faecium PCR Not detected, E. coli (PCR) Not detected, H. influenzae DNA Not detected, Klebsiella aerogenes (PCR) Not detected, Klebsiella oxytoca PCR Not detected, K. pneumoniae group (PCR) Not detected, List. monocytogenes PCR Not detected, N. meningitidis (PCR) Not detected, Proteus species (PCR) Not detected, Salmonella spp. (PCR) Not detected, Serratia marcescens PCR Not detected, Staphylococcus sp PCR Detected, Staph aureus (PCR) Not detected, mecA/C & MREJ Resist Gene Not applicable, mecA/C-Methicil Resis Gene Detected, Staph epidermidis (PCR) Detected, Staph lugdunensis (TEM-PCR) Not detected, S. maltophilia (PCR) Not detected, Streptococcus sp PCR Not detected, S.agalactiae Grp B ELVIRA Not detected, Strep pneumoniae (PCR) Not detected, S. pyogenes GrpA ELVIRA Not detected, P. aeruginosa (PCR) Not detected, Bety/B-Vanco Res Genes Not applicable, blaIMP Car res Gene PCR Not applicable, KPC-Carbap Res Gene PCR Not applicable, blaNDM Car Res Gene PCR Not applicable, OXA-48 Carbape nem Resis Gene (PCR) Not applicable, blaVIM Car Res Gene PCR Not applicable, CTX-M Gene Resistance (PCR) Not applicable, MCR-1 Resistance Gene Not applicable 04/23/25 16:01: POC Glucose 255 H 04/23/25 21:02: POC Glucose 193 H 04/24/25 06:02: WBC 15.4 H, RBC 5.46 H, Hgb 14.2, Hct 42.8, MCV 78.4 L, MCH 26.0 L, MCHC 33.2, RDW 14.5, Plt Count 206, MPV 12.0 H, Neut % (Auto) 72.7, Lymph % (Auto) 17.4, [place] % (Auto) 7.4, Eos % (Auto) 0.7, Baso % (Auto) 1.0, Neut # (Auto) 11.2 H, Lymph # (Auto) 2.7, [place] # (Auto) 1.1 H, Eos # (Auto) 0.1, Baso # (Auto) 0.2, Sodium 139, Potassium 3.7, Chloride 103, Carbon Dioxide 22, Anion Gap 17.7 H, BUN 15 D, Creatinine 0.80, Estimated Creat Clear 41, Estimated GFR 71, Est GFR ( Amer) 86, Glucose 256 H, Calcium 8.9, Total Bilirubin 2.0 H , AST 41 H, ALT 29, Alkaline Phosphatase 211 H, Total Protein 6.9, Albumin 4.0, Globulin 2.9, Albumin/Globulin Ratio 1.4, Procalcitonin 0.060, TSH 1.53, Free T4 1.35 04/24/25 06:09: POC Glucose 238 H I & O for Last 24 hours: Intake & Output 04/21/25 04/22/25 04/23/25 04/24/25 23:59 23:59 23:59 23:59 Intake Total 120 / 120 60 / 60 Output Total 300 / 300 450 / 450 200 / 200 Balance -300 / -300 -330 / -330 -140 / -140 Weight 51.211 kg 49.487 kg 49.26 kg Microbiology Reports for the Last 24 Hours: Microbiology 04/22/25 15:53 Urine,Clean Catch Urine Culture - Preliminary Gram Negative Rods 04/22/25 16:48 Blood Blood Culture - Preliminary NO GROWTH AFTER 24 HOURS 04/22/25 16:39 Blood Blood Culture - Preliminary Constitutional Constitutional: no acute distress, thin and chronically ill appearing Comments: does not follow commands, non-combative, flat affect, no meaningful response to questions *Routine HEENT Exam Head: Present normocephalic Eye: Present EOMI and PERRL ENT: Present mucous membranes moist *Routine Neck Exam Neck: Present supple; Absent lymphadenopathy *Routine Respiratory Exam Respiratory: Present CTA bilaterally; Absent respiratory distress, rhonchi, stridor, wheezes or crackles *Routine Cardiovascular Exam Cardiovascular: Present RRR *Routine Abdominal Exam Abdominal: Present soft and normoactive bowel sounds; Absent tenderness *Routine Rectal Exam Patient deferred: visual exam *Routine Exam Patient deferred: external exam *Routine Extremities Exam Extremities: Absent cyanosis, clubbing or edema *Routine Skin Exam Skin: Present warm; Absent rash *Routine Neurological Exam Neurological: Present alert and altered mental status Comments: Residual deficits from chronic strokes, some facial asymmetry, right-sided deficit. Not answering questions or following commands. Not wanting to eat or drink. Results Data Completed and Pending Labs on day of discharge: Labs from last 24 hours 04/24/25 04/24/25 04/23/25 06:09 06:02 21:02 WBC 15.4 H RBC 5.46 H Hgb 14.2 Hct 42.8 MCV 78.4 L MCH 26.0 L MCHC 33.2 RDW 14.5 Plt Count 206 MPV 12.0 H Neut % (Auto) 72.7 Lymph % (Auto) 17.4 [place] % (Auto) 7.4 Eos % (Auto) 0.7 Baso % (Auto) 1.0 Neut # (Auto) 11.2 H Lymph # (Auto) 2.7 [place] # (Auto) 1.1 H Eos # (Auto) 0.1 Baso # (Auto) 0.2 Sodium 139 Potassium 3.7 Chloride 103 Carbon Dioxide 22 Anion Gap 17.7 H BUN 15 D Creatinine 0.80 Estimated Creat Clear 41 Estimated GFR 71 Est GFR ( Amer) 86 Glucose 256 H POC Glucose 238 H 193 H Hemoglobin A1c Calcium 8.9 Total Bilirubin 2.0 H AST 41 H ALT 29 Alkaline Phosphatase 211 H Total Protein 6.9 Albumin 4.0 Globulin 2.9 Albumin/Globulin Ratio 1.4 Procalcitonin 0.060 TSH 1.53 Free T4 1.35 Urine Color Urine Appearance Urine pH Ur Specific [place] Urine Protein Urine Glucose (UA) Urine Ketones Urine Blood Urine Nitrate Urine Bilirubin Urine Urobilinogen Ur Leukocyte Esterase Urine RBC Urine WBC Ur Squamous Epith Cells Urine Bacteria A. baumannii (PCR) Bacteroides fragilis Cecile albicans (PCR) Cecile auris (PCR) C. glabrata (PCR) C. krusei (PCR) C. parapsilosis (PCR) C. tropicalis (PCR) Cryptococcus neoformans PCR Enterobacterales (PCR) Enterococc faecalis PCR Enterococc faecium PCR E. coli (PCR) H. influenzae DNA Klebsiella aerogenes (PCR) Klebsiella oxytoca PCR K. pneumoniae group (PCR) List. monocytogenes PCR N. meningitidis (PCR) Proteus species (PCR) Salmonella spp. (PCR) Serratia marcescens PCR Staphylococcus sp PCR Staph aureus (PCR) mecA/C & MREJ Resist Gene mecA/C-Methicil Resis Gene Staph epidermidis (PCR) Staph lugdunensis (TEM-PCR) S. maltophilia (PCR) Streptococcus sp PCR S.agalactiae Grp B ELVIRA Strep pneumoniae (PCR) S. pyogenes GrpA ELVIRA P. aeruginosa (PCR) Bety/B-Vanco Res Genes blaIMP Car res Gene PCR KPC-Carbap Res Gene PCR blaNDM Car Res Gene PCR OXA-48 Carbapenem Resis Gene (PCR) blaVIM Car Res Gene PCR CTX-M Gene Resistance (PCR) MCR-1 Resistance Gene 04/23/25 04/23/25 04/23/25 16:01 13:38 11:04 WBC RBC Hgb Hct MCV MCH MCHC RDW Plt Count MPV Neut % (Auto) Lymph % (Auto) [place] % (Auto) Eos % (Auto) Baso % (Auto) Neut # (Auto) Lymph # (Auto) [place] # (Auto) Eos # (Auto) Baso # (Auto) Sodium Potassium Chloride Carbon Dioxide Anion Gap BUN Creatinine Estimated Creat Clear Estimated GFR Est GFR ( Amer) Glucose POC Glucose 255 H 228 H Hemoglobin A1c Calcium Total Bilirubin AST ALT Alkaline Phosphatase Total Protein Albumin Globulin Albumin/Globulin Ratio Procalcitonin TSH Free T4 Urine Color Urine Appearance Urine pH Ur Specific [place] Urine Protein Urine Glucose (UA) Urine Ketones Urine Blood Urine Nitrate Urine Bilirubin Urine Urobilinogen Ur Leukocyte Esterase Urine RBC Urine WBC Ur Squamous Epith Cells Urine Bacteria A. baumannii (PCR) Not detected Bacteroides fragilis Not detected Cecile albicans (PCR) Not detected Cecile auris (PCR) Not detected C. glabrata (PCR) Not detected C. krusei (PCR) Not detected C. parapsilosis (PCR) Not detected C. tropicalis (PCR) Not detected Cryptococcus neoformans PCR Not detected Enterobacterales (PCR) Not detected Enterococc faecalis PCR Not detected Enterococc faecium PCR Not detected E. coli (PCR) Not detected H. influenzae DNA Not detected Klebsiella aerogenes (PCR) Not detected Klebsiella oxytoca PCR Not detected K. pneumoniae group (PCR) Not detected List. monocytogenes PCR Not detected N. meningitidis (PCR) Not detected Proteus species (PCR) Not detected Salmonella spp. (PCR) Not detected Serratia marcescens PCR Not detected Staphylococcus sp PCR Detected Staph aureus (PCR) Not detected mecA/C & MREJ Resist Gene Not applicable mecA/C-Methicil Resis Gene Detected Staph epidermidis (PCR) Detected Staph lugdunensis (TEM-PCR) Not detected S. maltophilia (PCR) Not detected Streptococcus sp PCR Not detected S.agalactiae Grp B ELVIRA Not detected Strep pneumoniae (PCR) Not detected S. pyogenes GrpA ELVIRA Not detected P. aeruginosa (PCR) Not detected Bety/B-Vanco Res Genes Not applicable blaIMP Car res Gene PCR Not applicable KPC-Carbap Res Gene PCR Not applicable blaNDM Car Res Gene PCR Not applicable OXA-48 Carbapenem Resis Gene (PCR) Not applicable blaVIM Car Res Gene PCR Not applicable CTX-M Gene Resistance (PCR) Not applicable MCR-1 Resistance Gene Not applicable 04/23/25 04/22/25 05:33 15:53 WBC RBC Hgb Hct MCV MCH MCHC RDW Plt Count MPV Neut % (Auto) Lymph % (Auto) [place] % (Auto) Eos % (Auto) Baso % (Auto) Neut # (Auto) Lymph # (Auto) [place] # (Auto) Eos # (Auto) Baso # (Auto) Sodium Potassium Chloride Carbon Dioxide Anion Gap BUN Creatinine Estimated Creat Clear Estimated GFR Est GFR ( Amer) Glucose POC Glucose Hemoglobin A1c > 14.0 H Calcium Total Bilirubin AST ALT Alkaline Phosphatase Total Protein Albumin Globulin Albumin/Globulin Ratio Procalcitonin TSH Free T4 Urine Color Yellow Urine Appearance Clear Urine pH 8.0 Ur Specific [place] 1.010 Urine Protein Trace Urine Glucose (UA) 3+ Urine Ketones 2+ Urine Blood Trace-l Urine Nitrate Negative Urine Bilirubin Negative Urine Urobilinogen 0.2 Ur Leukocyte Esterase Trace Urine RBC Occasional Urine WBC 50-100 Ur Squamous Epith Cells Occasional Urine Bacteria 4+ A. baumannii (PCR) Bacteroides fragilis Cecile albicans (PCR) Cecile auris (PCR) C. glabrata (PCR) C. krusei (PCR) C. parapsilosis (PCR) C. tropicalis (PCR) Cryptococcus neoformans PCR Enterobacterales (PCR) Enterococc faecalis PCR Enterococc faecium PCR E. coli (PCR) H. influenzae DNA Klebsiella aerogenes (PCR) Klebsiella oxytoca PCR K. pneumoniae group (PCR) List. monocytogenes PCR N. meningitidis (PCR) Proteus species (PCR) Salmonella spp. (PCR) Serratia marcescens PCR Staphylococcus sp PCR Staph aureus (PCR) mecA/C & MREJ Resist Gene mecA/C-Methicil Resis Gene Staph epidermidis (PCR) Staph lugdunensis (TEM-PCR) S. maltophilia (PCR) Streptococcus sp PCR S.agalactiae Grp B ELVIRA Strep pneumoniae (PCR) S. pyogenes GrpA ELVIRA P. aeruginosa (PCR) Bety/B-Vanco Res Genes blaIMP Car res Gene PCR KPC-Carbap Res Gene PCR blaNDM Car Res Gene PCR OXA-48 Carbapenem Resis Gene (PCR) blaVIM Car Res Gene PCR CTX-M Gene Resistance (PCR) MCR-1 Resistance Gene Preliminary micro results at discharge 04/22/25 15:53 Urine Culture - Preliminary Urine,Clean Catch Gram Negative Rods 04/22/25 16:48 Blood Culture - Preliminary Blood NO GROWTH AFTER 24 HOURS 04/22/25 16:39 Blood Culture - Preliminary Blood DS: Diagnosis Discharge Diagnosis (1) Urinary tract infection in female: Status: Acute Code(s): N39.0 - Urinary tract infection, site not specified (2) Sepsis without septic shock: Status: Acute Code(s): A41.9 - Sepsis, unspecified organism (3) Chronic GERD: Status: Acute Code(s): K21.9 - Gastro-esophageal reflux disease without esophagitis (4) CVA (cerebral vascular accident): Status: Chronic Code(s): I63.9 - Cerebral infarction, unspecified (5) Dementia: Status: Chronic Code(s): F03.90 - Unspecified dementia, unspecified severity, without behavioral disturbance, psychotic disturbance, mood disturbance, and anxiety (6) Diabetes: Status: Chronic Code(s): E11.9 - Type 2 diabetes mellitus without complications Meds Home Medications and Allergies Home Medications ?Medication ?Instructions ?Recorded ?Confirmed ?Type metoprolol succinate 25 mg 25 mg PO DAILY #30 tabs 04/2304/22/25 Rx tablet,extended release 24 hr omeprazole 20 mg capsule,delayed 20 mg PO BID #60 caps 04/04/25 04/22/25 Rx release apixaban 5 mg tablet (Eliquis) 5 mg PO BID #60 tabs Rx atorvastatin 40 mg tablet (Lipitor) 40 mg PO DAILY #30 tabs 04/25/25 Rx insulin glargine 100 unit/mL (3 20 unit (0.2 mL) SQ DA VIDAL 30 days 04/25/25 Rx mL) subcutaneous pen (Lantus #6 mL Solostar U-100 Insulin) New Prescriptions to Start Prescriptions: apixaban [Eliquis] Kalen Olson atorvastatin [Lipitor] Kalen Olson insulin glargine [Lantus Solostar U-100 Insulin] Kalen Olson Allergies Allergy/AdvReac Type Severity Reaction Status Date / Time codeine Allergy Mild Unknown Verified 04/22/25 17:05 allergy reaction zolpidem Allergy Itchy Verified 04/22/25 17:05 Discharge Plan Disposition Patient Disposition: Hospice - Medical Facility Condition: Serious Discharge Order Discharge Orders: Discharge Order (Routine); Ordered 04/25/25 Ordered By: Kalen Olson Follow up Plan Prescriptions/Medication Reconciliation: New insulin glargine [Lantus Solostar U-100 Insulin] 100 unit/mL (3 mL) Insulin Pen 20 unit SQ DAILY 30 Days Qty: 6 0RF Continued metoprolol succinate 25 mg tablet extended release 24 hr 25 mg PO DAILY Qty: 30 2RF omeprazole 20 mg capsule,delayed release(DR/EC) 20 mg PO BID Qty: 60 2RF atorvastatin [Lipitor] 40 mg tablet 40 mg PO DAILY Qty: 30 2RF Eliquis 5 mg tablet 5 mg PO BID Qty: 60 2RF Discontinued losartan 25 mg tablet 25 mg PO DAILY Qty: 30 2RF Januvia 25 mg tablet 25 mg PO DAILY Qty: 30 2RF spironolactone 25 mg tablet 25 mg PO DAILY Qty: 30 2RF memantine 5 mg tablet 5 mg PO BID Patient Comments: TAKE 1 TABLET BY MOUTH TWICE DAILY Problem Reconciliation Problems Reviewed?: Yes Patient Discharge Instructions ACTIVITY: Continue current activity DIET: continue same diet Patient Instructions: Sepsis, DI for Urinary Tract Infection (UTI), Stop Light Infection Print Language: [place] Providers Primary Care Provider: Provider,Referral Admit Provider: Marcus Trejo Attending Provider: Marcus Trejo
[2025-04-26 06:49] LABS: POC Glucose,Bedside 204 (70-110)
--- NOTE | 2025-05-01 07:39 | PC.NURSE ---
Blood culture results forwarded to hospitalist.
== END 2025-04-25 15:17 | disposition hospice, inpatient (51) | DRG 871 ==
LOC: ER 17:40 → 2ND 18:03
PROVIDERS: Internal Medicine Adolescent Medicine; Physician Assistant; Admitting Provider Student in an Organized Health Care Education/Training Program; Emergency Provider Emergency Medicine; Visit Provider Student in an Organized Health Care Education/Training Program
DX: A41.59 Other Gram-negative sepsis (principal); I63.422 Cerebral infarction due to embolism of left anterior cerebral artery; N39.0 Urinary tract infection, site not specified; Z16.29 Resistance to other single specified antibiotic; G93.49 Other encephalopathy; Z51.5 Encounter for palliative care; I10 Essential (primary) hypertension; E11.65 Type 2 diabetes mellitus with hyperglycemia; I48.91 Unspecified atrial fibrillation; B96.4 Proteus (mirabilis) (morganii) as the cause of diseases classified elsewhere; K21.9 Gastro-esophageal reflux disease without esophagitis; F03.90 Unspecified dementia, unspecified severity, without behavioral disturbance, psychotic disturbance, mood disturbance, and anxiety; Z74.2 Need for assistance at home and no other household member able to render care; Z86.73 Personal history of transient ischemic attack (TIA), and cerebral infarction without residual deficits; Z79.01 Long term (current) use of anticoagulants; Z79.899 Other long term (current) drug therapy; Z79.84 Long term (current) use of oral hypoglycemic drugs; Z88.5 Allergy status to narcotic agent; Z88.8 Allergy status to other drugs, medicaments and biological substances; Z79.4 Long term (current) use of insulin
CPT/HCPCS: 36415; 70450; 70496; 70498; 70553; 80053; 81001; 82962; 83036; 83735; 84145; 84439; 84443; 84484; 85025; 86803; 87040; 87077; 87086; 87088; 87154; 87186; 87389; 97162; 97166; A9576; J0696; J1650; J1885; J1956; J7030; Q9967